=== PATIENT | female | born 1965 | race Caucasian/White ===

== ENCOUNTER 2016-07-19 10:17 | Outpatient (CLI) | payer BC ==
[~2016-07-19] VITALS: Ht 147.3 cm; Wt 61.4 kg
--- NOTE | ~2016-07-19 | HEMODYNAMI ---
PATIENT:LEONA SINGER MEDICAL RECORD: [id number] : 69 LOCATION:[facility] ADMISSION DATE: 07/19/16 Generatedon:07/19/201614:03 Patient name: LEONA SINGER Patient #: [id number] SSN: : 1965 Date of study: 07/19/2016 Page: Of Hemodynamic Procedure Report Patient Data Patient Demographics Procedure consent was obtained First Name: LEONA Gender: Female Last Name: LUCRECIA : 1965 [facility] Initial: MOIZ Age: 50 year(s) Patient #: [id number] Race: Unknown Additional ID: [id number] Contact details Address: [address] [place] [address] State: [place] City: [place] Zip code: [address] Past Medical History Allergies: No known allergies Admission Admission Data Admission Date: 07/19/2016 Admission Time: 10:17 Admit Source: Other Lab Results Lab Result Date: 07/19/2016 Lab Result Time: 0:00 Biochemistry Name Units Result Min Max BUN mg/dl 8 --(*---)-- 7 18 Creatinine mg/dl 0.7 --(*---)-- 0.6 1.3 CBC Name Units Result Min Max Hemoglobin g/dl 14.2 --(*---)-- 13.5 17.5 Procedure Procedure Types Cath Procedure Diagnostic Procedure [facility] w/Coronaries PCI Procedure Coronary Stent Initial Coronary Stent Additional Procedure Description Procedure Date Procedure Date: 07/19/2016 Procedure Start Time: 13:11 Procedure End Time: 14:01 Procedure Staff Name Function Eldon Bennett MD Performing Physician Alvaro Dawson RT Scrub Camron Calderon RN Nurse Pancho Cha RT Monitor Procedure Data Cath Procedure Fluoroscopy Diagnostic fluoroscopy Total fluoroscopy dose: dose: 485.35 mGy 485.35 mGy Contrast Material Contrast Material Type Amount (ml) Isovue 300 178 Entry Location Entry Primary Successful Side Size Upsize Upsize Entry Closure Sin ccessful Closure Location (Fr) 1 (Fr) 2 (Fr) Remarks Device Remarks Radial Right 6 Fr Mechanical artery Short Compression Estimated blood loss: 20 ml Diagnostic catheters Device Type Used For End Catheter Placement Terumo 5Fr [place] 110cm Procedure catheter Procedure Medications Medication Administration Route Dosage Oxygen NC 2 l/min Heparin Flush Bag added to field 2 bags (1000units/500ml NS) 0.9% NaCl I.V. 100 ml/hr Radial Cocktail added to field 1 syringe (Verapomil 2mg/Nitro 400mcg/Heparin 1500units) Fentanyl I.V. 50 mcg Versed I.V. 1 mg Fentanyl I.V. 50 mcg Versed I.V. 1 mg Fentanyl I.V. 50 mcg Heparin Bolus I.V. 4000 units Integrilin (Bolus I.V. 5.6 ml 2mg/ml) Integrilin (Bolus wasted 4.4 ml 2mg/ml) Fentanyl I.V. 50 mcg Radial Cocktail I.A. 1 syringe (Verapomil 2mg/Nitro 400mcg/Heparin 1500units) Versed I.V. 1 mg Versed I.V. 1 mg Brilinta P.O. 180 mg Hemodynamics Rest HGB: 14.2 (g/dl) Heart Rate: 63 (bpm) Pressure Samples Time Site Value (mmHg) Purpose Heart Use Rate(bpm) 13:14 LV 129/-20,8 Snapshot 67 13:15 AO 123/67(93) Pullback 72 13:15 LV 118/-8,7 Pullback 72 Gradients Valve Time Site 1 Site 2 Mean SEP/DFP Peak To Heart Use (mmHg) (sec/min) Peak Rate (mmHg) (bpm) Aortic 13:15 LV AO 0 5 0 72 118/-8,7 123/67(93) Calculations Valve P-P Mean Valve Index Valve Source Name Gradient Area Flow (cm2) Aortic 0 0 0 0 Snapshots Pre Cath Intra NCS Post Cath Vital Signs Time Heart Resp SPO2 NIBP (mmHg) Rhythm Pain Sedation Rate (ipm) (%) Status Level (bpm) 12:54:39 66 16 100 161/77(120) NSR 0 (11) 10(A) , No pain 12:59:08 64 18 99 158/75(102) NSR 0 (11) 10(A) , No pain 13:03:32 70 17 98 151/69(100) NSR 0 (11) 10(A) , No pain 13:07:58 64 17 96 146/63(105) NSR 0 (11) 10(A) , No pain 13:12:21 64 17 96 146/64(105) NSR 0 (11) 10(A) , No pain 13:16:41 66 19 95 140/57(89) NSR 0 (11) 9(A) , No pain 13:21:09 55 18 97 153/52(82) NSR 0 (11) 9(A) , No pain 13:25:23 57 16 96 133/61(113) NSR 0 (11) 9(A) , No pain 13:29:43 61 18 97 137/66(94) NSR 0 (11) 9(A) , No pain 13:34:03 62 18 97 136/55(112) NSR 0 (11) 9(A) , No pain 13:38:21 59 16 96 132/58(118) NSR 0 (11) 9(A) , No pain 13:42:46 60 17 95 141/58(83) NSR 0 (11) 9(A) , No pain 13:47:08 54 18 96 155/70(102) NSR 0 (11) 9(A) , No pain 13:53:20 59 19 98 180/81(105) NSR 0 (11) 10(A) , No pain 13:57:49 63 19 97 168/82(108) NSR 0 (11) 10(A) , No pain Medications Time Medication Route Dose Verified Delivered Reason Note s Effectiveness by by 12:58:50 Oxygen NC 2 l/min Camron Lyon Per physician Kvng Calderon RN RN 12:58:59 Heparin Flush added 2 bags Camron Lyon used for Bag to Kvng Calderon home office claim specialist (1000units/500ml field RN NS) 12:59:10 0.9% NaCl I.V. 100 Camron Lyon Per physician ml/hr Kvng Calderon RN RN 12:59:20 Radial Cocktail added 1 Camron Lyon used for (Verapomil to syringe Kvng Calderon home office claim specialist 2mg/Nitro field RN 400mcg/Heparin 1500units) 13:06:44 Fentanyl I.V. 50 mcg Camron Lyon for sedation Kvng Calderon RN RN 13:06:51 Versed I.V. 1 mg Camron Camron for sedation Kvng Calderon RN RN 13:10:25 Fentanyl I.V. 50 mcg Camron Camron for sedation Kvng Calderon RN RN 13:10:30 Versed I.V. 1 mg Camron Camron for sedation Kvng Calderon RN RN 13:12:41 Fentanyl I.V. 50 mcg Camron Camron for sedation Kvng Calderon RN RN 13:13:27 Radial Cocktail I.A. 1 Camron Eldon for (Verapomil syringe [facility] vasodilation 2mg/Nitro RN 400mcg/Heparin 1500units) 13:24:37 Heparin Bolus I.V. 4000 Camron Camron for units Kvng Calderon RN anticoagulation RN 13:24:51 Integrilin I.V. 5.6 ml Camron Camron for (Bolus 2mg/ml) Kvng Calderon RN antiplatelet RN therapy 13:25:01 Integrilin wasted 4.4 ml Camron Grimesy for (Bolus 2mg/ml) Kvng Calderon RN antiplatelet RN therapy 13:25:15 Fentanyl I.V. 50 mcg Camron Camron for sedation Kvng Calderon RN RN 13:28:05 Versed I.V. 1 mg Camron Camron for sedation Kvng Calderon RN RN 13:49:05 Versed I.V. 1 mg Camron Camron for sedation Kvng Calderon RN RN 14:02:16 Brilinta P.O. 180 mg Camron Camron for Kvng Calderon RN antiplatelet RN therapy Procedure Log Time Note 12:30:17 Camron Calderon RN sent for patient. Start room use. 12:44:57 Informed consent obtained and on chart 12:45:01 Admit Source: Other 12:45:15 Diagnostic Cath status Elective 12:45:25 Time tracking: Regular hours 12:45:28 Plan of Care:Hemodynamics will remain stable., Cardiac rhythm will remain stable., Comfort level will be maintained., Respiratory function will remain adequate., Patient/ family verbilizes understanding of procedure., Procedure tolerated without complication., Recovers from procedure without complications.. 12:47:49 Patient received from Pre/Post Procedure Room to [facility]3] 3 Alert and oriented. Tansferred to table in Supine position. 12:47:52 Warm blankets applied, and ad hugger turned on for patient comfort. 12:47:53 Correct patient and procedure confirmed by team. 12:53:22 ECG and BP/O2 sat monitors applied to patient. 12:53:22 Vital chart was started 12:53:23 Baseline sample Acquired. 12:53:30 Rhythm: sinus rhythm 12:53:32 Full Disclosure recording started 12:58:50 Oxygen 2 l/min NC was administered by Camron Calderon RN; Per physician; 12:58:59 Heparin Flush Bag (1000units/500ml NS) 2 bags added to field was administered by Camron Calderon RN; used for procedure; 12:59:10 0.9% NaCl 100 ml/hr I.V. was administered by Camron Calderon RN; Per physician; 12:59:20 Radial Cocktail (Verapomil 2mg/Nitro 400mcg/Heparin 1500units) 1 syringe added to field was administered by Camron Calderon RN; used for procedure; 13:00:23 Baseline sample Acquired. 13:01:01 H&P Date Dictated: 07/14/2016 Within 30 days and on chart., H&P Addendum completed by physician on day of procedure. (MUST COMPLETE FOR ALL OUTPATIENTS). 13:01:03 Pre-procedure instructions explained to patient. 13:01:04 Pre-op teaching completed and patient verbalized understanding. 13:01:06 Family in waiting room. 13:01:09 Patient NPO since Midnight. 13:01:15 Patient allergic to No known allergies 13:01:18 Is the patient allergic to Iodine/contrast media? No. 13:01:22 Is patient on blood thinner?No 13:01:26 Patient diabetic? No. 13:01:35 Patient not . Patient has had hysterectomy. 13:01:37 ----Pre-sedation anethsthesia assessment.---- 13:01:41 Previous problem with sedation/anesthesia? No ? 13:01:44 Snore? Yes 13:01:46 Sleep apnea? No 13:01:47 Deviated septum? No 13:01:49 Opens mouth fully? Yes 13:01:50 Sticks out tongue? Yes 13:01:53 Airway obstruction? No ? 13:02:01 Dentures? Yes in tight 13:02:08 Pre procedure: right dorsailis pedis pulse 2+ Normal; easily identifiable; not easily obliterated 13:02:12 Modified Daryl's test Ulnar < 7 seconds 13:02:17 Patient pain scale 0/10 ?. 13:02:50 IV patent on arrival in left antecubital with 0.9% NaCl at [facility]. 13:05:58 Lab Result : BUN 8 mg/dl 13:05:58 Lab Result : Hemoglobin 14.2 g/dl 13:05:58 Lab Result : Creatinine 0.7 mg/dl 13:06:07 Lab results completed and on chart. 13:06:13 Right Radial & Right Groin area was prepped with chlora-prep and draped in sterile fashion 13:06:15 Alarms reviewed by R. N. 13:06:16 Sharps counted by scrub and verified by R.N. 13:06:17 Physician arrived 13:06:18 --------ALL STOP TIME OUT------ 13:06:19 Final Timeout: patient, procedure, and site verified with staff and physician. All members of the team are in agreement. 13:06:21 Right Radial & Right Groin site verified by team. 13:06:25 Physical assessment completed. ASA score P 2 - A patient with mild systemic disease as per Eldon Bennett MD. 13:06:29 Sedation plan: IV Moderate Sedation Versed, Fentanyl 13:06:44 Fentanyl 50 mcg I.V. was administered by Camron Calderon RN; for sedation; 13:06:48 Use device set Radial Dx 13:06:50 Acist Syringe opened to sterile field. 13:06:51 Versed 1 mg I.V. was administered by Camron Calderon RN; for sedation; 13:06:51 Medline Cath Pack opened to sterile field. 13:06:52 Bag Decanter opened to sterile field. 13:06:52 Terumo 6Fr Slender Glidesheath opened to sterile field. 13:06:53 St Danny 260cm J .035 wire opened to sterile field. 13:06:54 Acist Hand Control opened to sterile field. 13:06:54 Acist Manifold opened to sterile field. 13:06:55 Tegaderm 4 x 4 opened to sterile field. 13:10:25 Fentanyl 50 mcg I.V. was administered by Camron Calderon RN; for sedation; 13:10:30 Versed 1 mg I.V. was administered by Camron Calderon RN; for sedation; 13:11:27 Procedure started. 13:11:53 Local anesthetic to right radial artery with Lidocaine 2% by Eldon Bennett MD.INITIAL ACCESS ONLY 13:11:56 Zero performed for pressure channel P1 13:12:41 Fentanyl 50 mcg I.V. was administered by Camron Calderon RN; for sedation; 13:12:42 A 6 Fr Short sheath was inserted into the Right Radial artery 13:13:10 A Sayduck 5Fr [place] 110cm catheter was advanced over the wire and used for Procedure. 13:13:27 Radial Cocktail (Verapomil 2mg/Nitro 400mcg/Heparin 1500units) 1 syringe I.A. was administered by Eldon Bennett MD; for vasodilation; 13:14:57 LV hemodynamics recorded. 13:15:11 LV gram done using FERNANDES 13:15:16 LV Function : Normal 13:15:21 EF : 55 % 13:16:04 RCA angiography performed. 13:16:52 LCA angiography performed. 13:20:50 Catheter removed. 13:21:00 Proceeding to intervention. 13:21:42 Aravo Solutionstronic Launcher 6Fr HS I SH guide catheter opened to sterile field. 13:21:43 Lindquist Whisper J 300cm 0.014 guide wire opened to sterile field. 13:21:44 Loaded Commerce BasixCompak Inflation Kit opened to sterile field. 13:21:57 Procedure type changed to Cath procedure, Diagnostic procedure, LHC, LHC w/Coronaries, PCI procedure, Coronary Stent Initial, Coronary Stent Additional 13:23:04 6 Fr HS 1 SH guide catheter was inserted over the wire 13:24:37 Heparin Bolus 4000 units I.V. was administered by Camron Calderon RN; for anticoagulation; 13:24:51 Integrilin (Bolus 2mg/ml) 5.6 ml I.V. was administered by Camron Calderon RN; for antiplatelet therapy; 13:25:01 Integrilin (Bolus 2mg/ml) 4.4 ml wasted was administered by Camron Calderon RN; for antiplatelet therapy; 13:25:15 Fentanyl 50 mcg I.V. was administered by Camron Calderon RN; for sedation; 13:25:16 ACC PCI Site: pRCA has 70% stenosis. 13:25:24 ACC PCI Site: mRCA has 70% stenosis. 13:25:40 ACC PCI Site: dRCA has 70+% stenosis. 13:26:28 WHISPER wire advanced. 13:26:52 Wire advanced across lesion. 13:27:57 Inflation number: 1 A Fisher Sci [place] 3.0 X 15 balloon was prepped and advanced across the R PDA, then inflated to 8 [place] for 0:30 (min:sec). 13:28:05 Versed 1 mg I.V. was administered by Camron Caledron RN; for sedation; 13:29:00 Inflation number: 1 The Fisher Sci [place] 3.0 X 15 balloon was reinflated across the Mid RCA, to 8 [place] for 0:30 (min:sec). 13:29:58 Inflation number: 1 The Fisher Sci [place] 3.0 X 15 balloon was reinflated across the Prox RCA, to 10 [place] for 0:30 (min:sec). 13:30:50 Inflation number: 2 The Fisher Sci [place] 3.0 X 15 balloon was reinflated across the Prox RCA, to 12 [place] for 0:30 (min:sec). 13:31:29 Balloon removed over the wire. 13:35:25 The Medtronic Resolute 3.0 X 38 stent was advanced then removed because of failure to cross lesion 13:35:49 Balloon re-inserted over wire. 13:36:58 Wire removed. 13:37:14 Fisher Sci Choice PT Extra Support J 300cm .014 gu opened to sterile field. 13:37:37 CHOICE SUPPORT wire advanced. 13:38:44 Inflation number: 1 The Fisher Sci [place] 3.0 X 15 balloon was reinflated across the Dist RCA, to 12 [place] for 0:30 (min:sec). 13:39:08 Inflation number: 2 The Fisher Sci [place] 3.0 X 15 balloon was reinflated across the Mid RCA, to 12 [place] for 0:30 (min:sec). 13:39:40 Inflation number: 3 The Fisher Sci [place] 3.0 X 15 balloon was reinflated across the Mid RCA, to 12 [place] for 0:30 (min:sec). 13:39:54 Balloon removed over the wire. 13:43:56 Inflation Number: 2 A Medtronic Resolute 3.0 X 38 stent was prepped and advanced across the R PDA. The stent was deployed at 12 [place] for 0:30 (min:sec). 13:44:54 Stent catheter was removed intact over wire. 13:48:02 Inflation Number: 4 A Medtronic Resolute 3.0 X 38 stent was prepped and advanced across the Mid RCA. The stent was deployed at 14 [place] for 0:30 (min:sec). 13:48:14 Stent catheter was removed intact over wire. 13:49:05 Versed 1 mg I.V. was administered by Camron Calderon RN; for sedation; 13:53:01 Inflation Number: 3 A Medtronic Resolute 3.0 X 15 stent was prepped and advanced across the Prox RCA. The stent was deployed at 14 [place] for 0:30 (min:sec). 13:53:03 Stent catheter was removed intact over wire. 13:53:35 Wire removed. 13:54:09 Guide catheter removed. 13:54:18 Terumo TR Band Standard opened to sterile field. 13:58:38 Sheath removed intact; hemostasis achieved with Mechanical Compression to the Right Radial artery. 13:58:40 Procedure ended.(Physican Out) 13:58:49 TR band inflated with 12cc of air. 13:59:28 Fluoroscopy dose: 485.35 mGy 13:59:28 Flurop Dose total: 485.35 13:59:37 Contrast amount:Isovue 300 178ml. 13:59:38 Sharps counted by scrub and verified by R.N. 13:59:43 Insertion/operative site no bleeding no hematoma. 14:00:25 Post right radial artery:stable 14:00:30 Post Procedure Pulses reassessed and unchanged 14:00:36 Post-procedure physical assessment completed. ASA score P 2 - A patient with mild systemic disease as per Eldon Bennett MD. 14:00:40 Post procedure rhythm: unchanged. 14:00:43 Estimated blood loss: 20 ml 14:00:45 Post procedure instruction explained to patient.Patient verbalizes understanding. 14:00:46 Patient needs reinforcement of post procedure teaching. 14:00:47 Procedure and supply charges have been captured, reviewed, submitted and are correct. 14:00:54 Vital chart was stopped 14:00:55 See physician's report for complete and final results. 14:00:57 Report given to Pre/Post Procedure Room. 14:01:02 Patient transfered to Pre/Post Procedure Room with Stretcher. 14:01:05 Procedure ended. 14:01:05 Full Disclosure recording stopped 14:01:17 ACC-PCI Only Patient was given prescriptions, or instructed by Eldon Bennett MD to start/continue the following medications upon discharge: Aspirin, Brilinta 14:01:18 End room use (Document Last) 14:02:16 Brilinta 180 mg P.O. was administered by Camron Calderon RN; for antiplatelet therapy; Intervention Summary Intervention Notes Time ActionType Lesion and Equipment Action# Pressure Duration Attributes Used 13:27:57 Inflate R PDA Fisher 1 8 00:30 balloon Sci [place] 3.0 X 15 balloon 13:29:00 Reinflate Mid RCA Fisher 1 8 00:30 balloon Sci [place] 3.0 X 15 balloon 13:29:58 Reinflate Prox RCA Fisher 1 10 00:30 balloon Sci [place] 3.0 X 15 balloon 13:30:50 Reinflate Prox RCA Fisher 2 12 00:30 balloon Sci [place] 3.0 X 15 balloon 13:35:25 Discard Medtronic Stent Resolute 3.0 X 38 stent 13:38:44 Reinflate Dist RCA Fisher 1 12 00:30 balloon Sci [place] 3.0 X 15 balloon 13:39:08 Reinflate Mid RCA Fisher 2 12 00:30 balloon Sci [place] 3.0 X 15 balloon 13:39:40 Reinflate Mid RCA Fisher 3 12 00:30 balloon Sci [place] 3.0 X 15 balloon 13:43:56 Place stent R PDA Medtronic 2 12 00:30 Resolute 3.0 X 38 stent 13:48:02 Place stent Mid RCA Medtronic 4 14 00:30 Resolute 3.0 X 38 stent 13:53:01 Place stent Prox RCA Medtronic 3 14 00:30 Resolute 3.0 X 15 stent Device Usage Item Name Manufacture Quantity Catalog Number Hospital Part Current Mini mal Lot# / Charge Number Stock Stock Serial# Code Acist Acist 1 08584 [id number] 171161 422879 20 blueKiwi Inc Medline Cardinal 1 [id number] 853077 87945 393965 5 Cath Pack Health Bag Microtek 1 452808 12035 816488 5 Reapplix Inc. Terumo 6Fr Terumo 1 [id number] 999791 379086 820305 [address] Danny 1 008789 709422 148002 152815 30 260cm J .035 wire Acist Hand Acist 1 26530 460820 448988 902437 5 Control Medical Systems Inc Acist Acist 1 02341 972269 776398 200893 5 [facility] Medical Systems Inc Tegaderm 4 3M 1 1626W 058735 456855 295050 5 x 4 Terumo 5Fr Terumo 1 29-1559 430910 768429 021736 5 [place] 110cm catheter Medtronic Medtronic 1 [id number] 624935 80996 298721 1 Launcher 6Fr HS I SH guide catheter Lindquist Lindquist 1 [id number] 174731 171493 608652 5 Whisper J Vascular 300cm 0.014 guide wire Merit Merit 1 [id number] 541520 089681 356663 15 BasixCompak Medical Inflation Kit Fisher Sci Fisher 1 [id number] 984965 134436 837501 1 [employer] 3.0 X 15 balloon Medtronic Medtronic 2 [id number] 393254 418071 0 [id number] Resolute [id number] 3.0 X 38 stent Fisher Sci Fisher 1 [id number] 242207 974295 509884 5 Choice PT Scientific Extra Support J 300cm .014 gu Medtronic Medtronic 1 [id number] 384575 061536 9 [id number] Resolute 3.0 X 15 stent Terumo TR Terumo 1 [id number] 021431 864507 605045 40 Band Standard Signature Audit [place] Stage Time Signature Unsigned Intra-Procedure 07/19/2016 Pancho Cha 2:03:03 PM RT(R) (CV) Signatures Monitor : Pancho Cha RT Signature : Date : Time : [facility] [address] [place] [address]
[2016-07-19] MEDS ORDERED: ADDERALL 20 MG20 M1 PO (10:32)
[2016-07-19 10:39] VITALS: BP 146/70; Ht 147.3 cm; Wt 61.4 kg
[2016-07-19 10:55] LABS: BASOPHILS 0.1 % (0-2); EOSINOPHILS 3.2 % (0-7); HEMATOCRIT 42.7 % (36.0-48.0); HEMOGLOBIN 14.2 g/dL (12-16); LYMPHOCYTES 27.4 % (15-50); MCH 31.2 pg (26.0-34.0); MCHC 33.3 g/dL (31.0-37.0); MCV 93.8 fL (80.0-100.0); MEAN PLATELET VOLUME 9.4 fL (7.4-10.4); MONOCYTES 6.5 % (2-11); NEUTROPHILS 62.8 % (40-80); PLATELET COUNT 226 10x3/uL (130-400); RBC 4.55 10x6/uL (4.00-5.40); RDW 13.3 % (11.5-14.5); WBC 7.1 10x3/uL (4.8-10.8)
[2016-07-19 11:21] LABS: CALC OSMOLALITY 275 mosm/kg (275-300); CALCIUM 8.9 mg/dL (8.5-10.1); CARBON DIOXIDE 27.3 mmol/L (21.0-32.0); CHLORIDE - SERUM 104 mmol/L (98-107); CREATININE - SERUM 0.7 mg/dL (0.6-1.3); GLUCOSE 93 mg/dL (74-106); POTASSIUM - SERUM 4.1 mmol/L (3.5-5.1); SODIUM 139 mmol/L (136-145); UREA NITROGEN 8 mg/dL (7-18); eGFR NON AFRICAN AMERICAN > 90 mL/min (90-120)
[2016-07-19] MEDS ORDERED: BRILINTA90 MG PO (14:19)
--- NOTE | 2016-07-19 14:30 | NUR ---
ROOM AIR, NO RESP DISTRESS NOTED. RIGHT WRIST TR BAND IN PLACE, NO BLEEDING OR HEMATOMA NOTED. ADMISSIONS CLINICIAN SHOWS NSR @ 60. NO C/O CHEST PAIN OR NAUSEA. C/O RIGHT JAW AND NECK PAIN. REC'D ORDER FROM DR. ARIAS FOR PAIN MEDICATION. VSS.
--- NOTE | 2016-07-19 15:00 | NUR ---
SANDWICH TRAY GIVEN, NO C/O NAUSEA AT THIS TIME. RIGHT WRIST TR BAND IN PLACE, NO BLEEDING OR HEMATOMA NOTED. VSS. ROOM AIR, NO RESP DISTRESS. CALL LIGHT WITHIN REACH.
--- NOTE | 2016-07-19 15:15 | NUR ---
SITTING UP IN BED. VSS. NO C/O NAUSEA OR CHEST PAIN. RIGHT WRIST TR BAND IN PLACE, NO BLEEDING OR HEMATOMA NOTED.
--- NOTE | 2016-07-19 15:45 | NUR ---
RIGHT WRIST TR BAND IN PLACE, NO BLEEDING NOTED. VSS. NO C/O AT THS TIME. ROOM AIR, NO RESP DISTRESS. CALL LIGHT WITHIN REACH.
--- NOTE | 2016-07-19 16:05 | NUR ---
PT C/O NAUSEA, PRESSURE IN CHEST AND BEING HOT. ZOFRAN GIVEN SIVP PER ORDERS.
--- NOTE | 2016-07-19 16:20 | NUR ---
NO C/O NAUSEA, BUT STILL CLAMMY AND PALE. EKG PERFORMED AND RESULTS GIVEN TO DR. ACOSTA.
--- NOTE | 2016-07-19 16:35 | NUR ---
NO NEW ORDERS REC'D. STATES SHE FEELS MUCH BETTER NOW. WILL CONTINUE TO MONITOR CLOSELY.
--- NOTE | 2016-07-19 17:00 | NUR ---
2CC OF AIR REMOVED FROM TR BAND. NO BLEEDING NOTED.
--- NOTE | 2016-07-19 17:08 | NUR ---
UP TO RESTROOM TO VOID.
--- NOTE | 2016-07-19 17:15 | NUR ---
3CC OF AIR REMOVED FROM TR BAND. NO BLEEDING NOTED.
--- NOTE | 2016-07-19 17:29 | NUR ---
3CC OF AIR REMOVED FROM TR BAND, NO BLEEDING NOTED.
--- NOTE | 2016-07-19 17:40 | NUR ---
REMAINING AIR REMOVED FROM TR BAND, DRESSING TO SITE. LEFT AC PIV D/C'D WITH CATHETER INTACT, BAND AID TO SITE. UP TO BEDSIDE TO GET DRESSED.
--- NOTE | 2016-07-19 17:52 | NUR ---
DISCHARGE INSTRUCTIONS GIVEN, VERBALIZED UNDERSTANDING. TAKEN OUT VIA WHEELCHAIR BY CATH OVEREDGE SEWER. LEFT FACILITY WITH FAMILY MEMBER AND ALL PERSONAL BELONGINGS.
--- NOTE | 2016-07-20 08:21 | OP ---
PATIENT NAME: LEONA SINGER MEDICAL RECORD: [id number] :69 LOCATION:D.CAT ADMISSION DATE: SURGEON: BRITTANY RENDON MD DATE OF OPERATION: 07/19/2016 PROCEDURE: Left heart catheterization, selective coronary angiography, right radial approach. CATHETERS: A 5-Indian sheath, Josephine catheter. The procedure was well tolerated and we proceeded immediately to PTCA stenting of the right coronary artery after the procedure was finished. FINDINGS: Left ventriculography in the 30-degree FERNANDES view: Normal wall motion, normal systolic function. CORONARY ANATOMY: LEFT MAIN: Left main is basically ____ takeoff with minimal left main. LAD: LAD has severe diffuse disease down to its distal third. CIRCUMFLEX: Circumflex is a large vessel with a proximal stenosis of ____. RIGHT CORONARY ARTERY: The right coronary is again severely diffusely diseased, a codominant system. Poor target distally. IMPRESSION: Multivessel coronary artery disease, given anatomy, quite optimal for bypass grafting. PLAN: For intervention momentarily. A hockey stick guide catheter was placed in the right coronary ostium. Next, the Whisper wire was placed down to the right coronary down to the PDA. Predeployment balloon used was a 3.0 x 15 mm Geary, which inflated down to the PDA and then in a stepwise fashion, I inflated up to 8-12 atmospheres from the PDA throughout the entire course of the right coronary. Next, stents were placed in the following fashion, a 3.0 x 38 mm Resolute drug-eluting stent was inflated in the right coronary, inflated to 14 atmospheres. Mid portion was covered with another 3.0 x 38 mm Resolute drug-coated stent. Finally, we placed a 3.0 x 15 mm, again Resolute drug-eluting stent, inflated up at 45 seconds to 14 atmospheres. Excellent resolution of a severe diffuse greater than 90% stenosis, no significant residual. LINDSAY flow was 3 throughout the procedure. Sheath was closed with TR band. Plavix was loaded in the lab. TRANSINT:[id number] Voice Confirmation ID: [id number] DOCUMENT ID: [id number] BRITTANY RENDON MD at 0821 CC: [id number] DICTATION DATE: 07/19/16 1408 WINDOWS [employer] ADMINISTRATOR: 07/19/16 2222 DEP CLI 07/19/16 [facility] [address] [place] [address]
== END 2016-07-19 17:52 | disposition home or self-care (01) ==
LOC: D.CATH 10:17
PROVIDERS: Internal Medicine Interventional Cardiology
DX: I25.110 Atherosclerotic heart disease of native coronary artery with unstable angina pectoris (principal)

== ENCOUNTER 2016-07-19 21:49 | Inpatient (IN) | payer BC ==
[~2016-07-19] VITALS: Ht 147.3 cm; Wt 61.9 kg
--- NOTE | ~2016-07-19 | DS ---
PATIENT:LEONA SINGER :69 MEDICAL RECORD: [id number] DISCHARGE SUMMARY ADMISSION DATE: 07/20/16 DISCHARGE DATE: 07/20/16 IMPRESSION: 1. Syncope. 2. Coronary artery disease status post intervention. BRIEF HISTORY AND HOSPITAL COURSE: Admitted post intervention of syncopal episode, fairly classic vagal using the restroom, no recurrence. Does have small hematoma. Did have elevated enzymes with previous intervention. Will be continued for regular followup. TRANSINT:[id number] Voice Confirmation ID: [id number] DOCUMENT ID: [id number] BRITTANY RENDON MD CC: [id number] DICTATION DATE: 07/20/16824 SPIRAL TUBE WINDER: 07/21/16 0200 DIS IN 07/20/16 [facility] [address] [place] [address]
[~2016-07-19 21:49] MED LIST: ADDERALL 20 MG20 M1 PO; BRILINTA90 MG PO
[2016-07-19 22:25] LABS: BASOPHILS 0.2 % (0-2); EOSINOPHILS 1.8 % (0-7); HEMATOCRIT 39.8 % (36.0-48.0); HEMOGLOBIN 13.1 g/dL (12-16); IMMATURE GRANULOCYTES 0.4 % (0-5); LYMPHOCYTES 14.2 % (15-50); MCHC 32.9 g/dL (31.0-37.0); MCV 94.1 fL (80.0-100.0); MEAN PLATELET VOLUME 9.5 fL (7.4-10.4); MONOCYTES 5.7 % (2-11); NEUTROPHILS 77.7 % (40-80); PLATELET COUNT 210 10x3/uL (130-400); RBC 4.23 10x6/uL (4.00-5.40); RDW 13.3 % (11.5-14.5)
[2016-07-19 22:31] LABS: WBC 13.8 10x3/uL (4.8-10.8)
[2016-07-19 22:34] LABS: INR 0.97 (0.85-1.17); PROTIME 12.7 SECONDS (11.6-15.0)
[2016-07-19 22:40] LABS: ANION GAP 11.4 mmol/L (8-16); BILIRUBIN - TOTAL 0.16 mg/dL (0.2-1.3); CALCIUM 8.7 mg/dL (8.5-10.1); CARBON DIOXIDE 24.8 mmol/L (21.0-32.0); POTASSIUM - SERUM 4.2 mmol/L (3.5-5.1); PROTEIN - SERUM 6.1 g/dL (6.4-8.2)
[2016-07-19 22:43] LABS: CREATININE - SERUM 0.9 mg/dL (0.6-1.3)
[2016-07-19 23:27] LABS: TROPONIN-I 1.159 ng/mL (0.000-0.060)
--- NOTE | 2016-07-20 01:32 | NUR ---
REPORT RECEIVED FROM FRANCISCO THOMPSON.
--- NOTE | 2016-07-20 01:38 | NUR ---
ARRIVED TO FLOOR VIA WHEELCHAIR, ACCOMPANIED BY HOSPITAL STAFF. PLACED ON TELEMETRY AND ORIENTED TO UNIT. CALL LIGHT IN REACH. WILL CONTINUE TO MONITOR. SEE NURSE ASSESSMENT.
[2016-07-20 02:44] VITALS: BP 103/56; Ht 147.3 cm; Wt 61.9 kg
[2016-07-20 04:00] VITALS: BP 103/56
[2016-07-20 06:33] LABS: CKMB 27.8 U/L (0.0-3.6); CREATINE KINASE 184 UL (21-215)
[2016-07-20 06:34] LABS: TROPONIN-I 3.063 ng/mL (0.000-0.060)
[2016-07-20 08:45] VITALS: BP 102/63
--- NOTE | 2016-07-20 09:45 | NUR ---
RESTS IN BED WITH CALL LIGHT IN REACH. TELEMETRY SB. CALL LIGHT IN REACH. WILL CONT. PLAN OF CARE.
--- NOTE | 2016-07-20 10:43 | NUR ---
Patient Name: LEONA SINGER Admission Status: ER Accout number: [id number] Admission Date: 07-20-2016 : 1965 Admission Diagnosis: Attending: REYNA Current LOS: 1 Anticipated DC Date: 07-20-2016 Planned Disposition: Home Primary Insurance: [employer] [facility] Discharge Planning Comments: * Is the patient Alert and Oriented? Yes 0 * How many steps to enter\exit or inside your home? NONE 0 * PCP DR. CONTE 0 * Pharmacy [facility] 0 * Preadmission Environment Home with Family 0 * ADLs Independent 0 * Equipment None 0 * Other Equipment NO MEDICAL EQUIPMENT PROVIDER PREFERENCE 0 * List name and contact numbers for known caregivers / representatives who currently or will assist patient after discharge: CELSO SINGER, DAUGHTER, 0 * Community resources currently utilized None 0 * Please name any agencies selected above. NONE 0 * Additional services required to return to the preadmission environment? No 0 * Can the patient safely return to the preadmission environment? Yes 0 * Has this patient been hospitalized within the prior 30 days at any hospital? No 0 CM MET WITH PT IN ROOM TO DISCUSS DISCHARGE PLANNING AND NEEDS. PT REPORTS LIVING AT HOME INDEPENDENTLY WITH HER ADULT DAUGHTER AND SON IN LAW. PT HAS NO MEDICAL EQUIPMENT AND NO OUTSIDE SERVICES ASSISTING IN THE HOME. CM DISCUSSED AVAILABILITY OF HOME HEALTH, REHAB SERVICES AND MEDICAL EQUIPMENT. PT DENIES DISCHARGE NEEDS, REPORTS HER DAUGHTER WILL PICK HER UP FOR DISCHARGE HOME. Flipping Machine Operator: Vikas Brown
[2016-07-20 11:11] LABS: CKMB 30.9 U/L (0.0-3.6); CREATINE KINASE 210 UL (21-215)
[2016-07-20 11:15] LABS: TROPONIN-I 3.484 ng/mL (0.000-0.060)
[2016-07-20 11:57] VITALS: BP 100/49
--- NOTE | 2016-07-20 13:45 | NUR ---
IV AND TELEMETRY DCD. DC PLANS GIVEN. UNDERSTANDING VOICED. ESCORTED TO CAR BY W/C.
== END 2016-07-20 13:48 | disposition home or self-care (01) | DRG 312 ==
LOC: D.ER 21:49 → D.M2 07-20 01:17
PROVIDERS: Emergency Medicine; ADMIT Internal Medicine Interventional Cardiology
DX: R55 Syncope and collapse (principal); I25.10 Atherosclerotic heart disease of native coronary artery without angina pectoris; Z95.5 Presence of coronary angioplasty implant and graft

== ENCOUNTER 2016-07-24 11:45 | Outpatient (CLI) | payer BC ==
[~2016-07-24] VITALS: Ht 147.3 cm; Wt 61.4 kg
--- NOTE | ~2016-07-24 | OP ---
PATIENT NAME: LEONA SINGER MEDICAL RECORD: [id number] :[birth year] LOCATION:D.CAT ADMISSION DATE: SURGEON: BRITTANY RENDON MD DATE OF OPERATION: 07/24/2016 PTCA stent report to both LAD and circumflex. A 6-Setswana sheath placed in the right femoral artery, JL 3.5 guiding catheters supplied good guide support. Initially views of circumflex showed a possible ruptured plaque in the true circumflex after take off of the first OM. There was still residual 80% stenosis noted from previous lesion. Using a Whisper wire placed across both lesions in the circumflex, pre-deployment balloon used was a 2.5 x 15 mm Juncos inflated up to 18 atmospheres, pre-deployment stents were used for a 15 mm x 2.5 Resolute drug-eluting stent in the distal lesion and a proximal stenosis addressed with a 3.0 x 12 mm Resolute again drug-eluting stent. Next, attention was turned to the LAD, this was promptly stented. The mid vessel was crossed with a Whisper wire and stent deployed was a 2.5 x 14 mm Resolute nondrug-eluting stent, the proximal lesion of 90% was addressed with a 3.0 x 14 mm again Resolute drug-eluting stent. Final induction shows resolutation of circumflex 80% stenosis to no significant residual. LAD mid and proximal stenosis, 80% stenosis, no significant residual. LINDSAY flow was at the end of the procedure, the patient was previously on Plavix, heparin was used during the case. Sheath was closed with ExoSeal device. TRANSINT:[id number] Voice Confirmation ID: [id number] DOCUMENT ID: [id number] BRITTANY RENDON MD CC: [id number] DICTATION DATE: 07/24/16 1510 [place] TRANSPORTATION DRIVER: 07/25/16 0056 DEP CLI 07/24/[address] [facility] [address] [id number]
--- NOTE | ~2016-07-24 | HEMODYNAMI ---
PATIENT:LEONA SINGER MEDICAL RECORD: [id number] : [birth year] LOCATION:ARNEL ADMISSION DATE: 07/24/16 Generatedon:07/24/201615:09 Patient name: LEOAN SINGER Patient #: [id number] : 1965 Date of study: 07/24/2016 Page: Of Hemodynamic Procedure Report Patient Data Patient Demographics Procedure consent was obtained First Name: LEONA Gender: Female Last Name: SINGER : 1965 Middle Initial: MOIZ Age: 50 year(s) Patient #: [id number] Race: SSN: [id number] Additional ID: [id number] Contact details Address: [address] [place] [address] State: [place] City: [place] Zip code: [address] Past Medical History Allergies: No known allergies Admission Admission Data Admission Date: 07/24/2016 Admission Time: 11:45 Arrival Date: 07/24/2016 Arrival Time: 14:00 Admit Source: Other Insurance Payor: Private health insurance Height (in.): 58 BSA: 1.54 (m2) Height (cm.): 147.32 BMI: 28.21 (kg/m2) Weight (lbs.): 135 Weight (kg.): 61.23 Lab Results Lab Result Date: 07/19/2016 Lab Result Time: 0:00 Biochemistry Name Units Result Min Max BUN mg/dl 8 --(*---)-- 7 18 Creatinine mg/dl 0.7 --(*---)-- 0.6 1.3 CBC Name Units Result Min Max Hemoglobin g/dl 14.2 --(*---)-- 13.5 17.5 Procedure Procedure Types Cath Procedure PCI Procedure Coronary Stent Initial x2 Miscellaneous Procedures Moderate Sedation up to 15 minutes Moderate Sedation up to 45 minutes Procedure Description Procedure Date Procedure Date: 07/24/2016 Procedure Start Time: 14:15 Procedure End Time: 15:07 Procedure Staff Name Function Eldon Bennett MD Performing Physician aPige Billingsley RT Scrub Jose Edwards RN Nurse Ree Stone RT Monitor Procedure Data Cath Procedure Fluoroscopy Diagnostic fluoroscopy Total fluoroscopy Time: time: 14.9 min 14.9 min Diagnostic fluoroscopy Total fluoroscopy dose: dose: 1289 mGy 1289 mGy Contrast Material Contrast Material Type Amount (ml) Isovue 370 184 Entry Location Entry Primary Successful Side Size Upsize Upsize Entry Closure Succes sful Closure Location (Fr) 1 (Fr) 2 (Fr) Remarks Device Remarks Femoral Right 6 Fr Exoseal artery Short Estimated blood loss: 5 ml Diagnostic catheters Device Type Used For End Catheter Placement Diagnostic Infinity 5Fr Right Coronary 3DRC catheter Angiography Procedure Complications No complications Procedure Medications Medication Administration Route Dosage Oxygen NC 2 l/min Lidocaine 2% added to field 20 Heparin Flush Bag added to field 2 bags (1000units/500ml NS) 0.9% NaCl I.V. 100 ml/hr Versed I.V. 1 mg Fentanyl I.V. 50 mcg Versed I.V. 1 mg Fentanyl I.V. 50 mcg Heparin Bolus I.V. 4000 units Versed I.V. 1 mg Fentanyl I.V. 50 mcg Versed I.V. 1 mg Heparin Bolus I.V. 2000 units Nitroglycerin IC/IA I.C. 150 mcg Fentanyl I.V. 25 mcg Hemodynamics Rest BSA: 1.54 (m2) HGB: 14.2 (g/dl) O2 Consumption: Estimated: 146.34 (ml/min) O2 Co nsumption indexed: Estimated:95.03 (ml/min/m) Heart Rate: 61 (bpm) Snapshots Pre Cath Intra NCS Post Cath Vital Signs Time Heart Resp SPO2 NIBP (mmHg) Rhythm Pain Sedation Rate (ipm) (%) Status Level (bpm) 14:06:04 65 17 100 161/71(101) NSR 0 (11) 10(A) , No pain 14:10:28 65 14 99 134/58(94) NSR 0 (11) 10(A) , No pain 14:14:44 63 16 100 132/62(88) NSR 0 (11) 9(A) , No pain 14:19:00 64 14 100 124/56(83) NSR 0 (11) 9(A) , No pain 14:23:12 64 17 99 131/58(84) NSR 0 (11) 9(A) , No pain 14:27:28 66 19 99 141/56(115) NSR 0 (11) 9(A) , No pain 14:31:30 63 14 100 118/62(87) NSR 0 (11) 9(A) , No pain 14:35:42 64 19 100 128/58(90) NSR 0 (11) 9(A) , No pain 14:39:58 61 20 99 131/54(103) NSR 0 (11) 9(A) , No pain 14:44:16 69 14 98 118/52(69) NSR 0 (11) 9(A) , No pain 14:48:25 69 20 98 113/57(106) NSR 0 (11) 9(A) , No pain 14:52:33 65 17 99 119/59(99) NSR 0 (11) 9(A) , No pain 14:56:43 58 24 100 132/59(86) NSR 0 (11) 9(A) , No pain 15:00:53 63 32 100 149/72(94) NSR 0 (11) 9(A) , No pain 15:05:13 61 17 100 163/67(124) NSR 0 (11) 10(A) , No pain Medications Time Medication Route Dose Verified Delivered Reason Notes Effectiveness by by 14:03:13 Oxygen NC 2 Eldon Jiaie used for l/min St. Marshal Edwards RN procedure 14:03:21 Lidocaine 2% added 20ml Eldon Eldon for local to vial [facility] anesthetic field MD PIÑA 14:03:27 Heparin Flush added 2 Eldon Eldon used for Bag to bags [facility] procedure (1000units/500ml field MD PIÑA NS) 14:03:38 0.9% NaCl I.V. 100 Elodn Buffie Per ml/hr [facility]. Marshal Edwards RN physician 14:11:15 Fentanyl I.V. 50 Eldon Buffie for sedation mcg [facility] Marshal Edwards RN, MD 14:11:56 Versed I.V. 1 mg Eldon Jiaie for sedation St. Marshal Edwards RN, MD 14:16:30 Versed I.V. 1 mg Eldon Roie for sedation St. Marshal Edwards RN, MD 14:16:37 Fentanyl I.V. 50 Eldon Garcia for sedation mcg [facility] Marshal Edwards RN, MD 14:20:10 Heparin Bolus I.V. 4000 Eldon Garcia for verified units St. Marshal Edwards RN antiplatelet with dr MD aponte soni 14:27:16 Versed I.V. 1 mg Eldon Garcia for sedation St. Marshal Edwards RN, MD 14:27:21 Fentanyl I.V. 50 Eldon Garcia for sedation mcg St. Marshal Edwards RN, MD 14:33:08 Versed I.V. 1 mg Eldon Garcia for sedation St. Marshal Edwards RN, MD 14:40:05 Heparin Bolus I.V. 2000 Eldon Garcia for verified units St. Marshal Edwards RN antiplatelet with dr MD fay shafer 14:41:05 Fentanyl I.V. 25 Eldon Colón for sedation april Bennett MD, MD 14:43:08 Nitroglycerin I.C. 150 Eldon Colón for IC/IA mcg St. Marshal Gonzales MD, MD Procedure Log Time Note 13:23:10 Informed consent obtained and on chart 13:23:19 Admit Source: Other 13::22 Arrival Date: 07/24/2016 2:00:00 PM 13:23:34 Insurance Payor : Private health insurance 13:40:04 Jose Edwards RN sent for patient. Start room use. 13:52:07 Diagnostic Cath Status : Elective 13:54:11 Time tracking: Regular hours 13:54:15 Plan of Care:Hemodynamics will remain stable., Cardiac rhythm will remain stable., Comfort level will be maintained., Respiratory function will remain adequate., Patient/ family verbilizes understanding of procedure., Procedure tolerated without complication., Recovers from procedure without complications.. 13:54:41 Patient received from Pre/Post Procedure Room to [facility] 2 Alert and oriented. Tansferred to table in Supine position. 13:54:42 Warm blankets applied, and ad hugger turned on for patient comfort. 13:54:42 Correct patient and procedure confirmed by team. 13:54:43 ECG and BP/O2 sat monitors applied to patient. 14:03:13 Oxygen 2 l/min NC was administered by Jose Edwards RN; used for procedure; 14:03:21 Lidocaine 2% 20ml vial added to field was administered by Eldon Bennett MD; for local anesthetic; 14:03:27 Heparin Flush Bag (1000units/500ml NS) 2 bags added to field was administered by Eldon Bennett MD; used for procedure; 14:03:38 0.9% NaCl 100 ml/hr I.V. was administered by Jose Edwards RN; Per physician; 14:04:52 Vital chart was started 14:04:53 Baseline sample Acquired. 14:04:56 Rhythm: sinus rhythm 14:04:58 Full Disclosure recording started 14:05:02 H&P Date Dictated: 07/24/2016 Within 30 days and on chart.. 14:05:06 Pre-procedure instructions explained to patient. 14:05:06 Pre-op teaching completed and patient verbalized understanding. 14:05:07 Family in waiting room. 14:05:09 Patient NPO since Midnight. 14:05:40 Is the patient allergic to Iodine/contrast media? No. 14:05:41 Was the patient premedicated? No 14:05:43 Is patient on blood thinner?Yes 14:05:46 ACC The patient was administered the following blood thiners within the last 24 hours: ACCBrilinta 14:05:48 Patient diabetic? No. 14:05:50 Previous problem with sedation/anesthesia? No ? 14:05:51 Snore? Yes 14:05:52 Sleep apnea? No 14:05:56 Deviated septum? No 14:05:56 Opens mouth fully? Yes 14:05:57 Sticks out tongue? Yes 14:05:59 Airway obstruction? No ? 14:06:05 Dentures? No ? 14:06:09 Pre procedure: right dorsailis pedis pulse 1+ Palpable, but thready & weak; easily obliterated 14:06:12 Patient pain scale 0/10 ?. 14:06:30 IV patent on arrival in left forearm with 0.9% NaCl at [facility]. 14:06:36 Lab results completed and on chart. 14:06:41 Right groin area was prepped with chlora-prep and draped in sterile fashion 14:06:42 Alarms reviewed by R. N. 14:06:43 Sharps counted by scrub and verified by R.N. 14:10:11 Physician arrived 14:10:12 --------ALL STOP TIME OUT------ 14:10:12 Final Timeout: patient, procedure, and site verified with staff and physician. All members of the team are in agreement. 14:10:20 Right groin site verified by team. 14:10:23 Physical assessment completed. ASA score P 2 - A patient with mild systemic disease as per Eldon Bennett MD. 14:10:27 Sedation plan: IV Moderate Sedation Versed, Fentanyl 14:11:15 Fentanyl 50 mcg I.V. was administered by Jose Edwards RN; for sedation; 14:11:56 Versed 1 mg I.V. was administered by Jose Edwards RN; for sedation; 14:12:53 Use device set Femoral PCI 14:12:54 Acist Syringe opened to sterile field. 14:12:55 Acist Hand Control opened to sterile field. 14:12:55 Bag Decanter opened to sterile field. 14:12:56 Medline Cath Pack opened to sterile field. 14:12:56 Terumo 6Fr [place] Sheath opened to sterile field. 14:12:56 St Danny 260cm J .035 wire opened to sterile field. 14:12:57 Merit BasixCompak Inflation Kit opened to sterile field. 14:12:57 Acist Manifold opened to sterile field. 14:12:58 Tegaderm 4 x 4 opened to sterile field. 14:13:06 Lindquist Olympia 300cm 0.014 guide wire opened to sterile field. 14:13:35 Procedure started. 14:15:05 Local anesthetic to right femoral artery with Lidocaine 2% by Eldon Bennett MD.INITIAL ACCESS ONLY 14:15:14 A 6 Fr Short sheath was inserted into the Right Femoral artery 14:16:30 Versed 1 mg I.V. was administered by Jose Edwards RN; for sedation; 14:16:37 Fentanyl 50 mcg I.V. was administered by Jose Edwards RN; for sedation; 14:17:07 Medtronic Launcher 6Fr JL 3.5 guide catheter opened to sterile field. 14:17:08 6 Fr jl 3.5 guide catheter was inserted over the wire 14:18:35 LCA angiography performed. 14:18:38 Injector settings: Ml/sec: 3, Volume: 6, 14:19:20 Lindquist Whisper J 300cm 0.014 guide wire opened to sterile field. 14:20:10 Heparin Bolus 4000 units I.V. was administered by Jose Edwards RN; for antiplatelet therapy; verified with dr shafer 14:20:43 whisper wire advanced. 14:23:21 Wire removed. damaged. 14:23:37 Lindquist Whisper J 300cm 0.014 guide wire opened to sterile field. 14:23:57 whisper wire advanced. 14:25:35 The Trade Sci [place] 2.5 X 12 balloon was advanced and then removed because of failure to cross lesion 14:27:16 Versed 1 mg I.V. was administered by Jose Edwards RN; for sedation; 14:27:21 Fentanyl 50 mcg I.V. was administered by Jose Edwards RN; for sedation; 14:28:42 Inflation number: 1 A Euphora 1.5 x 15 Balloon was prepped and advanced across the Mid CX, then inflated to 12 [place] for 0:30 (min:sec). 14:29:56 Balloon removed over the wire. 14:31:29 whisper wire removed; choice pt wire advanced 14:31:51 Trade Sci Choice PT Extra Support J 300cm .014 gu opened to sterile field. 14:32:55 Inflation number: 2 A Trade Sci [place] 2.5 X 12 balloon was prepped and advanced across the Mid CX, then inflated to 10 [place] for 0:30 (min:sec). 14:33:08 Versed 1 mg I.V. was administered by Jose Edwards RN; for sedation; 14:34:01 Balloon removed over the wire. 14:37:38 Inflation Number: 3 A Medtronic Resolute 3.0 X 15 stent was prepped and advanced across the Mid CX. The stent was deployed at 12 [place] for 0:30 (min:sec). 14:38:27 Stent catheter was removed intact over wire. 14:40:05 Heparin Bolus 2000 units I.V. was administered by Jose Edwards RN; for antiplatelet therapy; verified with dr shafer 14:40:59 Inflation Number: 1 A Medtronic Resolute 3.0 X 12 stent was prepped and advanced across the Prox CX. The stent was deployed at 14 [place] for 0:30 (min:sec). 14:41:05 Fentanyl 25 mcg I.V. was administered by Eldon Bennett MD; for sedation; 14:41:48 Stent catheter was removed intact over wire. 14:42:45 Wire removed. 14:42:55 Lindquist Whisper J 300cm 0.014 guide wire opened to sterile field. 14:43:08 Nitroglycerin IC/IA 150 mcg I.C. was administered by Eldon Bennett MD; for vasodilation; 14:44:15 whisper wire advanced. 14:46:51 Wire redirected to lad. 14:50:26 Inflation number: 1 The KeraFAST [place] 2.5 X 12 balloon was reinflated across the Mid LAD, to 10 [place] for 0:30 (min:sec). 14:51:08 Balloon removed over the wire. 14:54:01 Inflation Number: 2 A Medtronic Resolute 2.5 X 14 stent was prepped and advanced across the Mid LAD. The stent was deployed at 14 [place] for 0:10 (min:sec). 14:55:06 Stent catheter was removed intact over wire. 14:58:56 Inflation Number: 1 A Medtronic Resolute 3.0 X 15 stent was prepped and advanced across the Prox LAD. The stent was deployed at 14 [place] for 0:30 (min:sec). 15:00:16 Stent catheter was removed intact over wire. 15:00:18 Wire removed. 15:00:19 Guide catheter removed. 15:00:42 A Diagnostic Infinity 5Fr 3DRC catheter was advanced over the wire and used for Right Coronary Angiography. 15:01:00 RCA angiography performed. 15:01:02 Injector settings: Ml/sec: 3, Volume: 6, 15:03:51 Catheter removed. 15:04:02 Cordis 6Fr Exoseal opened to sterile field. 15:04:20 Sheath removed intact; hemostasis achieved with Exoseal to the Right Femoral artery. 15:04:21 Procedure ended.(Physican Out) 15:04:43 Fluoroscopy time 14.90 minutes. 15:04:54 Flurop Dose total: 1289 15:04:54 Fluoroscopy dose: 1289 mGy 15:05:06 Contrast amount:Isovue 370 184ml. 15:05:08 Sharps counted by scrub and verified by R.N. 15:05:09 Insertion/operative site no bleeding no hematoma. 15:05:12 Post-op/insertion site Right Femoral artery dressed using a 4 x 4 and Tegaderm. 15:05:15 Post right femoral artery:stable 15:05:16 Post Procedure Pulses reassessed and unchanged 15:05:23 Post procedure rhythm: unchanged. 15:05:26 Estimated blood loss: 5 ml 15:05:28 Post procedure instruction explained to patient.Patient verbalizes understanding. 15:05:28 Patient needs reinforcement of post procedure teaching. 15:06:26 Procedure type changed to Cath procedure, PCI procedure, Coronary Stent Initial x2, Miscellaneous Procedures, Moderate Sedation up to 15 minutes, Moderate Sedation up to 45 minutes 15:06:27 Procedure and supply charges have been captured, reviewed, submitted and are correct. 15:06:46 Procedure Complication : No complications 15:06:49 Vital chart was stopped 15:06:49 See physician's report for complete and final results. 15:06:58 Report given to Pre/Post Procedure Room. 15:07:02 Patient transfered to Pre/Post Procedure Room with Stretcher. 15:07:04 Procedure ended. 15:07:04 Full Disclosure recording stopped 15:07:12 ACC-PCI Only Patient was given prescriptions, or instructed by Eldon Bennett MD to start/continue the following medications upon discharge: Brilinta 15:07:14 End room use (Document Last) 15:08:07 Patient Height : 147.32 cm 15:08:13 Patient Weight : 61.23 kg Intervention Summary Intervention Notes Time ActionType Lesion and Equipment Action# Pressure Duration Attributes Used 14:25:35 Discard Trade Balloon Sci [place] 2.5 X 12 balloon 14:28:42 Inflate Mid CX Euphora 1 12 00:30 balloon 1.5 x 15 Balloon 14:32:55 Inflate Mid CX Trade 2 10 00:30 balloon Sci [place] 2.5 X 12 balloon 14:37:38 Place stent Mid CX Medtronic 3 12 00:30 Resolute 3.0 X 15 stent 14:40:59 Place stent Prox CX Medtronic 1 14 00:30 Resolute 3.0 X 12 stent 14:50:26 Reinflate Mid LAD Trade 1 10 00:30 balloon Sci [place] 2.5 X 12 balloon 14:54:01 Place stent Mid LAD Medtronic 2 14 00:10 Resolute 2.5 X 14 stent 14:58:56 Place stent Prox LAD Medtronic 1 14 00:30 Resolute 3.0 X 15 stent Device Usage Item Name Manufacture Quantity Catalog Number Hospital Part Current Mini mal Lot# / Charge Number Stock Stock Serial# Code Acist Acist 1 [id number] [id number] 477302 739054 20 Syringe Medical Systems Inc Acist Hand Acist 1 30819 742746 143063 390383 5 Control Medical Systems Inc Bag Microtek 1 2002S 049985 28412 193253 5 Vindicia Inc. Medline Cardinal 1 [id number] 772820 17737 619511 5 [place] Terumo 6Fr Terumo 1 [id number] 554970 495245 138842 [address] [place] [address] St Danny 1 783175 461459 426792 663804 30 260cm J .035 wire Merit Merit 1 [id number] 552390 318778 197538 15 BasBetter ATM Services Medical Inflation Kit Acist Acist 1 23745 195180 407902 787279 5 JobScout Medical Systems Inc Tegaderm 4 1 [id number] 825023 926256 093189 5 x 4 Lindquist Lindquist 1 [id number] 092709 821489 100461 1 Olympia Vascular 300cm 0.014 guide wire Medtronic Medtronic 1 [id number] 324377 46788 681517 1 Launcher 6Fr JL 3.5 guide catheter Lindquist Lindquist 3 [id number] 513355 061515 122512 5 Whisper J Vascular 300cm 0.014 guide wire Trade Sci Trade 1 [id number] 174649 240699 301639 1 [id number] Bitly Scientific 2.5 X 12 balloon Euphora 1.5 Medtronic 1 [id number] 617004 966524 470981 5 [id number] x 15 Balloon Trade Sci Trade 1 [id number] 436544 663802 885348 5 Choice PT Scientific Extra Support J 300cm .014 gu Medtronic Medtronic 2 [id number] 139014 772374 0 [id number] Resolute [id number] 3.0 X 15 stent Medtronic Medtronic 1 [id number] 328667 077093 7 [id number] Resolute 3.0 X 12 stent Medtronic Medtronic 1 [id number] 503090 500144 6 [id number] Resolute 2.5 X 14 stent Diagnostic Cardinal 1 [id number] 447980 723350 378842 9 InVenture 5Fr 3DRC catheter Cordis 6Fr Cardinal 1 [id number] 710839 762480 309817 10 [facility] Net Transmit & Receive Signature Audit [place] Stage Time Signature Unsigned Intra-Procedure 07/24/2016 Paige Billingsley 3:09:32 PM RT(R) Signatures Monitor : Ree Stone Signature : RT Date : Time : [facility] [address] [facility] [address] [address]
[2016-07-24 12:15] VITALS: BP 131/67; Ht 147.3 cm; Wt 61.4 kg
[2016-07-24 12:29] LABS: BASOPHILS 0.2 % (0-2); EOSINOPHILS 3.5 % (0-7); HEMATOCRIT 43.5 % (36.0-48.0); HEMOGLOBIN 14.7 g/dL (12-16); IMMATURE GRANULOCYTES 0.2 % (0-5); LYMPHOCYTES 18.6 % (15-50); MCH 31.4 pg (26.0-34.0); MCHC 33.8 g/dL (31.0-37.0); MCV 92.9 fL (80.0-100.0); MEAN PLATELET VOLUME 9.5 fL (7.4-10.4); MONOCYTES 8.6 % (2-11); NEUTROPHILS 68.9 % (40-80); PLATELET COUNT 241 10x3/uL (130-400); RBC 4.68 10x6/uL (4.00-5.40); RDW 13.3 % (11.5-14.5); WBC 8.3 10x3/uL (4.8-10.8)
[2016-07-24 12:40] LABS: CALC OSMOLALITY 276 mosm/kg (275-300); CALCIUM 9.1 mg/dL (8.5-10.1); CARBON DIOXIDE 27.2 mmol/L (21.0-32.0); CHLORIDE - SERUM 103 mmol/L (98-107); CREATININE - SERUM 0.7 mg/dL (0.6-1.3); POTASSIUM - SERUM 4.2 mmol/L (3.5-5.1); SODIUM 139 mmol/L (136-145); UREA NITROGEN 10 mg/dL (7-18); eGFR NON AFRICAN AMERICAN > 90 mL/min (90-120)
[2016-07-24 12:48] LABS: GLUCOSE 90 mg/dL (74-106)
--- NOTE | 2016-07-24 15:20 | NUR ---
1520 VSS WITH CHEST PAIN DENIED. 6 FR EXOSEAL R/GROIN CDI NO BLEEDING NO HEMATOMA NOTED. INSTRUCTED PATIENT TO KEEP HEAD FLAT ON PILLOW WITH RLE STRAIGHT. 1545 RESTING QUIETLY WITH NO DISTRESS 1600 DR RENDON AT BEDSIDE SPEAKING WITH FAMILY. VSS WITH 6 FR EXOSEAL R/GROIN CDI NO BLEEDING NO HEMATOMA NOTED
--- NOTE | 2016-07-24 16:25 | NUR ---
6 FR EXOSEAL R/GROIN CDI NO BLEEDING NO HEMATOMA NOTED. VSS WITH CHEST PAIN DENIED FAMILY AT SIDE ASSISTING WITH SANDWICH AND SODA
--- NOTE | 2016-07-24 16:49 | NUR ---
VSS WITH 6 FR EXOSEAL R/GROIN CDI NO BLEEDING NO HEMATOMA NOTED RESTING QUIETLY WITH NO DISTRESS
--- NOTE | 2016-07-24 18:50 | NUR ---
IV D'C WITH CATH TIP INTACT, WRITTEN AND VERBAL INSTRUCTIONS GIVEN TO PT AND DAUGHTER, VERBAL UNDERSTANDING NOTED. DENIES FURTHUR NEEDS.
== END 2016-07-24 19:00 | disposition home or self-care (01) ==
LOC: D.CATH 11:45
PROVIDERS: Internal Medicine Interventional Cardiology
DX: I20.9 Angina pectoris, unspecified (principal); I10 Essential (primary) hypertension; R00.2 Palpitations; R94.31 Abnormal electrocardiogram [ECG] [EKG]; F17.200 Nicotine dependence, unspecified, uncomplicated; Z01.812 Encounter for preprocedural laboratory examination

== ENCOUNTER 2016-09-03 22:43 | Emergency (ER) | payer BC ==
[2016-07-24 12:15] VITALS: BMI 28.2
[2016-09-03 23:26] LABS: BASOPHILS 0.3 % (0-2); EOSINOPHILS 5.4 % (0-7); HEMATOCRIT 39.3 % (36.0-48.0); HEMOGLOBIN 13.2 g/dL (12-16); IMMATURE GRANULOCYTES 0.2 % (0-5); LYMPHOCYTES 29.4 % (15-50); MCH 31.4 pg (26.0-34.0); MCHC 33.6 g/dL (31.0-37.0); MCV 93.6 fL (80.0-100.0); MEAN PLATELET VOLUME 9.1 fL (7.4-10.4); MONOCYTES 9.4 % (2-11); NEUTROPHILS 55.3 % (40-80); PLATELET COUNT 253 10x3/uL (130-400); RDW 12.6 % (11.5-14.5); WBC 9.4 10x3/uL (4.8-10.8)
[2016-09-03 23:41] LABS: ALBUMIN 3.2 g/dL (3.4-5.0); ALKALINE PHOSPHATASE 70 U/L (46-116); ALT (SGPT) 20 U/L (10-68); CALC OSMOLALITY 278 mosm/kg (275-300); CALCIUM 8.6 mg/dL (8.5-10.1); CARBON DIOXIDE 27.6 mmol/L (21.0-32.0); CHLORIDE - SERUM 105 mmol/L (98-107); CREATININE - SERUM 0.9 mg/dL (0.6-1.3); GLUCOSE 87 mg/dL (74-106); POTASSIUM - SERUM 3.7 mmol/L (3.5-5.1); PROTEIN - SERUM 6.3 g/dL (6.4-8.2); SODIUM 140 mmol/L (136-145); UREA NITROGEN 16 mg/dL (7-18); eGFR NON AFRICAN AMERICAN 71 mL/min (90-120)
[2016-09-03 23:51] LABS: CHOL - HDL RATIO 2.8 ratio (2.3-4.1); CHOLESTEROL, TOTAL 161 mg/dL (0-200); CKMB 1.1 U/L (0.0-3.6); CREATINE KINASE 87 UL (21-215); HDL CHOLESTEROL 58 mg/dL (32-96); LDL CHOLESTEROL 88 mg/dL (0-100); LDL-HDL RATIO 1.5 ratio (1.5-3.5); TRIGLYCERIDE 77 mg/dL (30-200); TROPONIN-I < 0.017 ng/mL (0.000-0.060)
== END 2016-09-04 03:26 | disposition home or self-care (01) ==
LOC: D.ER 22:43
PROVIDERS: Emergency Medicine
DX: R07.9 Chest pain, unspecified (principal)

== ENCOUNTER 2016-12-27 11:26 | Outpatient (CLI) | payer BC ==
--- NOTE | ~2016-12-27 | HEMODYNAMI ---
PATIENT:LEONA SINGER MEDICAL RECORD: [id number] : 69 LOCATION:[facility] ADMISSION DATE: 12/27/16 Generatedon:12/27/201614:42 Patient name: LEONA SINGER Patient #: [id number] : 1965 Date of study: 12/27/2016 Page: Of Hemodynamic Procedure Report Patient Data Patient Demographics Procedure consent was obtained First Name: LEONA Gender: Female Last Name: LUCRECIA : 1965 Middle Initial: MOIZ Age: 51 year(s) Patient #: [id number] Race: SSN: [id number] Additional ID: [id number] Contact details Address: [address] [place] [address] State: [place] City: [place] Zip code: [address] Past Medical History Allergies: No known allergies Admission Admission Data Admission Date: 12/27/2016 Admission Time: 11:26 Procedure Procedure Types Cath Procedure Diagnostic Procedure C LHC w/Coronaries Miscellaneous Procedures Moderate Sedation up to 15 minutes Procedure Description Procedure Date Procedure Date: 12/27/2016 Procedure Start Time: 14:24 Procedure End Time: 14:41 Procedure Staff Name Function Eldon Bennett MD Performing Physician Alvaro Dawson RT Scrub Jose Edwards RN Nurse Svetlana Vee RT Monitor Procedure Data Cath Procedure Fluoroscopy Diagnostic fluoroscopy Total fluoroscopy Time: 4.9 time: 4.9 min min Diagnostic fluoroscopy Total fluoroscopy dose: 164 dose: 164 mGy mGy Contrast Material Contrast Material Type Amount (ml) Isovue 300 79 Entry Location Entry Primary Successful Side Size Upsize Upsize Entry Closure Sin ccessful Closure Location (Fr) 1 (Fr) 2 (Fr) Remarks Device Remarks Radial Right 6 Fr Mechanical artery Short Compression Estimated blood loss: 5 ml Diagnostic catheters Device Type Used For End Catheter Placement Diagnostic Terumo 5Fr LV Angiography [place] 110cm catheter Diagnostic Terumo 5Fr Right Coronary [place] 110cm catheter Angiography Diagnostic Terumo 5Fr Left Coronary [place] 110cm catheter Angiography Procedure Complications No complications Procedure Medications Medication Administration Route Dosage Oxygen NC 2 l/min Lidocaine 2% added to field 20 Heparin Flush Bag added to field 2 bags (1000units/500ml NS) Benadryl I.V. 50 mg 0.9% NaCl I.V. 100 ml/hr Versed I.V. 2 mg Fentanyl I.V. 100 mcg Radial Cocktail I.A. 1 syringe (Verapomil 2mg/Nitro 400mcg/Heparin 1500units) Versed I.V. 1 mg Fentanyl I.V. 50 mcg Hemodynamics Rest Heart Rate: 62 (bpm) Pressure Samples Time Site Value (mmHg) Purpose Heart Use Rate(bpm) 14:26 LV 125/-14,36 EDP 72 14:26 AO 96/60(78) Pullback 69 14:26 LV 115/8,9 Pullback 69 Gradients Valve Time Site 1 Site 2 Mean SEP/DFP Peak To Heart Use (mmHg) (sec/min) Peak Rate (mmHg) (bpm) Aortic 14:26 LV AO 12 20 19 69 115/8,9 96/60(78) Calculations Valve P-P Mean Valve Index Valve Source Name Gradient Area Flow (cm2) Aortic 19 12 19 12 Snapshots Pre Cath Intra NCS Post Cath Vital Signs Time Heart Resp SPO2 etCO2 NIBP Rhythm Pain Sedation Rate (ipm) (%) (mmHg) (mmHg) Status Level (bpm) 14:17:02 59 17 100 26.9 147/69(97) NSR 0 (11) 10(A) , No pain 14:21:13 66 19 100 11.2 127/63(93) NSR 0 (11) 10(A) , No pain 14:25:30 65 15 100 0 123/57(78) NSR 0 (11) 9(A) , No pain 14:29:50 60 16 100 0 117/47(96) NSR 0 (11) 9(A) , No pain 14:34:02 66 15 100 1.4 111/51(81) NSR 0 (11) 9(A) , No pain 14:38:18 67 16 100 35.2 106/56(83) NSR 0 (11) 9(A) , No pain 14:41:38 62 15 100 38.2 114/53(72) NSR 0 (11) 10(A) , No pain Medications Time Medication Route Dose Verified Delivered Reason Notes Effectiveness by by 14:18:43 Oxygen NC 2 l/min Eldon Garcia used for [facility] Marshal Edwards RN procedure 14:18:50 Lidocaine 2% added 20ml Eldon Colón for local to vial [facility] anesthetic field MD PIÑA 14:19:33 Heparin Flush added 2 bags Eldon Colón used for Bag to [facility] procedure (1000units/500ml field MD PIÑA NS) 14:19:42 Benadryl I.V. 50 mg Eldon Garcia used for [facility] Marshal Edwards RN procedure 14:19:52 0.9% NaCl I.V. 100 Eldon Garcia Per ml/hr [facility] Marshal Edwards RN physician 14:23:33 Versed I.V. 2 mg Eldon Garcia for sedation [facility] Marshal Edwards RN, MD 14:23:39 Fentanyl I.V. 100 mcg Eldon Garcia for sedation [facility] Marshal Edwards RN, MD 14:24:46 Radial Cocktail I.A. 1 Eldon Colón for (Verapomil syringe [facility] vasodilation 2mg/Nitro MD PIÑA 400mcg/Heparin 1500units) 14:29:15 Versed I.V. 1 mg Eldon Garcia for sedation [facility] Marshal Edwards RN, MD 14:29:21 Fentanyl I.V. 50 mcg Eldon Garcia for sedation [facility] Marshal Edwards RN, MD Procedure Log Time Note 13:58:09 Jose Edwards RN sent for patient. Start room use. 13:58:10 Time tracking: Regular hours 13:58:13 Plan of Care:Hemodynamics will remain stable., Cardiac rhythm will remain stable., Comfort level will be maintained., Respiratory function will remain adequate., Patient/ family verbilizes understanding of procedure., Procedure tolerated without complication., Recovers from procedure without complications.. 14:04:13 Patient received from Pre/Post Procedure Room to CCL 3 Alert and oriented. Tansferred to table in Supine position. 14:04:28 Warm blankets applied, and ad hugger turned on for patient comfort. 14:04:29 Correct patient and procedure confirmed by team. 14:15:48 Vital chart was started 14:18:10 Signed procedure consent form obtained from patient. 14:18:11 ECG and BP/O2 sat monitors applied to patient. 14:18:11 Full Disclosure recording started 14:18:15 Rhythm: sinus rhythm 14:18:18 Baseline sample Acquired. 14:18:19 - 14:18:37 H&P Date Dictated: 12/21/2016 Within 30 days and on chart., H&P Addendu m completed by physician on day of procedure. (MUST COMPLETE FOR ALL OUTPATIENTS). 14:18:38 Pre-procedure instructions explained to patient. 14:18:39 Pre-op teaching completed and patient verbalized understanding. 14:18:40 Family in patients room. 14:18:43 Oxygen 2 l/min NC was administered by Jose Edwards RN; used for procedure; 14:18:46 Patient NPO since Midnight. 14:18:50 Lidocaine 2% 20ml vial added to field was administered by Eldon Bennett MD; for local anesthetic; 14:18:54 Patient allergic to No known allergies 14:18:59 Is the patient allergic to Iodine/contrast media? No. 14:19:00 Is patient on blood thinner?No 14:19:07 Patient diabetic? No. 14:19:13 Snore? No 14:19:16 Previous problem with sedation/anesthesia? No ? 14:19:19 Sleep apnea? No 14:19:20 Deviated septum? No 14:19:21 Opens mouth fully? Yes 14:19:22 Sticks out tongue? Yes 14:19:24 Airway obstruction? No ? 14:19:26 Dentures? No ? 14:19:29 Pre procedure: right dorsailis pedis pulse 2+ Normal; easily identifiable; not easily obliterated 14:19:30 Modified Daryl's test Ulnar < 7 seconds 14:19:32 Patient pain scale 0/10 ?. 14:19:33 Heparin Flush Bag (1000units/500ml NS) 2 bags added to field was administered by Eldon Bennett MD; used for procedure; 14:19:39 IV patent on arrival in left antecubital with 0.9% NaCl at [facility]. 14:19:42 Benadryl 50 mg I.V. was administered by oJse Edwards RN; used for procedure; 14:19:44 Lab results completed and on chart. 14:19:52 0.9% NaCl 100 ml/hr I.V. was administered by Jose Edwards RN; Per physician; 14:19:54 Right Radial & Right Groin area was prepped with chlora-prep and draped in sterile fashion 14:19:55 Alarms reviewed by R. N. 14:19:55 Sharps counted by scrub and verified by R.N. 14:19:59 Use device set Radial Dx 14:20:00 Acist Syringe opened to sterile field. 14:20:01 Medline Cath Pack opened to sterile field. 14:20:01 Bag Decanter opened to sterile field. 14:20:02 Terumo 6Fr Slender Glidesheath opened to sterile field. 14:20:02 St Danny 260cm J .035 wire opened to sterile field. 14:20:03 Acist Hand Control opened to sterile field. 14:20:03 Acist Manifold opened to sterile field. 14:20:04 Tegaderm 4 x 4 opened to sterile field. 14:22:10 Final Timeout: patient, procedure, and site verified with staff and physician. All members of the team are in agreement. 14:22:13 Right Radial site verified by team. 14:22:15 Physical assessment completed. ASA score P 2 - A patient with mild systemic disease as per Eldon Bennett MD. 14:22:18 Sedation plan: IV Moderate Sedation Versed, Fentanyl 14:23:33 Versed 2 mg I.V. was administered by Jose Edwards RN; for sedation; 14:23:39 Fentanyl 100 mcg I.V. was administered by Jose Edwards RN; for sedation; 14:24:41 Procedure started. 14:24:46 Radial Cocktail (Verapomil 2mg/Nitro 400mcg/Heparin 1500units) 1 syring e I.A. was administered by Eldon Bennett MD; for vasodilation; 14:24:47 Local anesthetic to right radial artery with Lidocaine 2% by Eldon Galindo MD.INITIAL ACCESS ONLY 14:24:50 Zero performed for pressure channel P1 14:24:53 Zero performed for pressure channel P1 14:24:55 Zero performed for pressure channel P1 14:24:58 Zero performed for pressure channel P1 14:25:00 Zero performed for pressure channel P1 14:25:16 A 6 Fr Short sheath was inserted into the Right Radial artery 14:26:03 A Diagnostic Terumo 5Fr [place] 110cm catheter was advanced over the wire and used for LV Angiography. 14:27:02 LV gram done using FERNANDES 14:27:04 LV hemodynamics recorded. 14:27:09 Injector settings: Ml/sec: 5, Volume: 15, 14:27:19 EF : 55 % 14:27:25 A Diagnostic Terumo 5Fr [place] 110cm catheter was advanced over the wire and used for Right Coronary Angiography. 14:27:54 A Diagnostic Terumo 5Fr [place] 110cm catheter was advanced over the wire and used for Left Coronary Angiography. Removed, unable to visualize LAD. 14:29:15 Versed 1 mg I.V. was administered by Jose Edwards RN; for sedation; 14:29:21 Fentanyl 50 mcg I.V. was administered by Jose Edwards RN; for sedation; 14:31:23 Medtronic Launcher 6Fr EBU 3.0 guide catheter opened to sterile field. 14:31:39 6 Fr EBU 3.0 guide catheter was inserted over the wire 14:32:35 Guide Catheter removed. unable to cannulate vessel. 14:33:42 Cordis 6FR XBLAD 3.5 guide catheter opened to sterile field. 14:36:15 LCA angiography performed. 14:36:28 Catheter removed. 14:37:45 Sheath removed intact; hemostasis achieved with Mechanical Compression to the Right Radial artery. 14:37:47 Procedure ended.(Physican Out) 14:37:55 Fluoroscopy time 04.90 minutes. 14:38:01 Fluoroscopy dose: 164 mGy 14:38:01 Flurop Dose total: 164 14:38:04 Contrast amount:Isovue 300 79ml. 14:38:05 Sharps counted by scrub and verified by R.N. 14:38:07 TR band inflated with 9cc of air. 14:38:08 Insertion/operative site no bleeding no hematoma. 14:38:13 Post right radial artery:stable, clean and dry 14:38:17 Post Procedure Pulses reassessed and unchanged 14:38:20 Post-procedure physical assessment completed. ASA score P 2 - A patient with mild systemic disease as per Eldon Bennett MD. 14:38:22 Post procedure rhythm: unchanged. 14:38:29 Estimated blood loss: 5 ml 14:38:31 Post procedure instruction explained to patient.Patient verbalizes understanding. 14:38:31 Patient needs reinforcement of post procedure teaching. 14:38:45 Procedure type changed to Cath procedure, Diagnostic procedure, LHC, LH C w/Coronaries, Miscellaneous Procedures, Moderate Sedation up to 15 minutes 14:38:52 Procedure Complication : No complications 14:39:06 Terumo TR Band Standard opened to sterile field. 14:40:47 Procedure and supply charges have been captured, reviewed, submitted an d are correct. 14:40:47 Vital chart was stopped 14:40:48 See physician's report for complete and final results. 14:40:50 Report given to Pre/Post Procedure Room. 14:41:15 Patient transfered to Pre/Post Procedure Room with Stretcher. 14:41:17 Procedure ended. 14:41:17 Full Disclosure recording stopped 14:41:26 End room use (Document Last) Device Usage Item Name Manufacture Quantity Catalog Hospital Part Current Minimal Lot# / Number Charge Number Stock Stock Serial# Code Acist Acist 1 24615 755850 558689 256422 20 Syringe Medical Systems Inc Medline Cardinal 1 [id number] 61736 840225 5 Cath Pack Health Bag Microtek 1 2002S 130701 69422 195225 5 Stream[employer] Inc. Terumo 6Fr Terumo 1 [id number] 358683 538679 784710 [address] St Danny 1 [id number] 791871 523072 471669 30 260cm J .035 wire Acist Hand Acist 1 80555 341798 319216 812582 5 Control Medical Systems Inc Acist Acist 1 80810 972365 011597 178428 5 Manifold Medical Systems Inc Tegaderm 4 3M 1 1626W 268815 937562 164707 5 x 4 Diagnostic Terumo 1 79-8343 294995 856415 789278 5 Terumo 5Fr [place] 110cm catheter Medtronic Medtronic 1 [id number] 310560 83637 543124 0 Launcher 6Fr EBU 3.0 guide catheter Cordis 6FR Cardinal 1 [id number] 428017 261646 520827 10 XBLAD 3.5 Health guide catheter Terumo TR [place] [address] [id number] 018628 192609 693274 40 Band Standard Signature Audit Mcconnell Stage Time Signature Unsigned Intra-Procedure 12/27/2016 Svetlana 2:42:06 PM Counts RT(R) Signatures Monitor : Svetlana Signature : Counts RT Date : Time : [place] [id number] [facility] [place] [address]
[2016-12-27 11:47] VITALS: BP 152/78; BMI 27.6
[2016-12-27 12:19] LABS: BASOPHILS 0.5 % (0-2); EOSINOPHILS 3.2 % (0-7); HEMATOCRIT 39.5 % (36.0-48.0); HEMOGLOBIN 13.4 g/dL (12-16); IMMATURE GRANULOCYTES 0.3 % (0-5); LYMPHOCYTES 30.4 % (15-50); MCHC 33.9 g/dL (31.0-37.0); MCV 91.4 fL (80.0-100.0); MEAN PLATELET VOLUME 9.2 fL (7.4-10.4); MONOCYTES 6.5 % (2-11); NEUTROPHILS 59.1 % (40-80); PLATELET COUNT 246 10x3/uL (130-400); RBC 4.32 10x6/uL (4.00-5.40); RDW 13.2 % (11.5-14.5); WBC 7.5 10x3/uL (4.8-10.8)
[2016-12-27 12:31] LABS: CALC OSMOLALITY 277 mosm/kg (275-300); CARBON DIOXIDE 27.8 mmol/L (21.0-32.0); CHLORIDE - SERUM 105 mmol/L (98-107); CREATININE - SERUM 0.6 mg/dL (0.6-1.3); GLUCOSE 90 mg/dL (74-106); POTASSIUM - SERUM 3.7 mmol/L (3.5-5.1); SODIUM 140 mmol/L (136-145); UREA NITROGEN 9 mg/dL (7-18); eGFR NON AFRICAN AMERICAN > 90 mL/min (90-120)
--- NOTE | 2016-12-28 13:46 | OP ---
PATIENT NAME: LEONA JOSEPH MEDICAL RECORD: [id number] :69 LOCATION:D.CAT ADMISSION DATE: SURGEON: BRITTANY RENDON MD DATE OF OPERATION: 12/27/2016 PROCEDURES: Left heart catheterization, selective coronary angiography, right radial approach. CATHETERS: A 5-Luxembourgish sheath, 5/4 left and right Puneet, 5/4 pig. The procedure was well tolerated and the patient returned to joseph. Sheath removed and TR band was placed. FINDINGS: Left ventriculography in 30-degree FERNANDES view: Normal wall motion, normal systolic function. CORONARY ANATOMY: LEFT MAIN: Left main is free of disease. LAD: Previously placed stent is widely patent. CIRCUMFLEX: Widely patent stents. RIGHT CORONARY ARTERY: Again, widely patent stents. IMPRESSION: No evidence of restenosis and no progression of [place] disease. TRANSINT:[id number] Voice Confirmation ID: [id number] DOCUMENT ID: [id number] BRITTANY RENDON MD at 1346 CC: [id number] DICTATION DATE: 12/27/[address] CLEANING EQUIPMENT OPERATOR: 12/27/16 1519 DEP CLI 12/27/16 [facility] [address] [place] [address]
== END 2016-12-27 17:00 | disposition home or self-care (01) ==
LOC: D.CATH 11:26
PROVIDERS: Internal Medicine Interventional Cardiology
DX: I25.10 Atherosclerotic heart disease of native coronary artery without angina pectoris (principal); Z95.5 Presence of coronary angioplasty implant and graft; Z01.812 Encounter for preprocedural laboratory examination

== ENCOUNTER 2017-07-23 14:36 | Emergency (ER) | payer OTHER, BC | END 2017-07-23 18:35 | disposition home or self-care (01) | LOC: D.ER 14:36 | DX: R51 Headache (principal); R11.2 Nausea with vomiting, unspecified; Y04.2XXA Assault by strike against or bumped into by another person, initial encounter; Y93.89 Activity, other specified; Y92.239 Unspecified place in hospital as the place of occurrence of the external cause; F17.200 Nicotine dependence, unspecified, uncomplicated ==

== ENCOUNTER 2017-08-19 11:24 | Observation (INO) | payer BC ==
[2017-08-19] VITALS (7 sets, daily range): BP systolic 100–145; BP diastolic 57–79; Ht 149.9 cm; Wt 58.3 kg
[~2017-08-19] VITALS: Ht 149.9 cm; Wt 58.3 kg
--- NOTE | ~2017-08-19 | ST ---
PATIENT:LEONA SINGER MEDICAL RECORD: [id number] SEX: F [facility] ORDER #: ADMISSION DATE: 08/19/17 AGE OF PATIENT: 51 REFERRING PHYSICIAN: INTERPRETING PHYSICIAN: VIRA BYRNES MD DATE OF SERVICE: 08/20/2017 PROCEDURE: Lexiscan-directed nuclear cardiac stress test. DESCRIPTION OF PROCEDURE: The patient underwent a standard Lexiscan stress test with a standard infusion of Lexiscan without any difficulty. She did have mild fullness in her chest. There were no significant EKG changes before, during, or after the infusion. The infusion and protocol were completed without difficulty. ATTENDING PHYSICIAN: Dr. Teresa The nuclear infusion both rest and stress imaging were done on the same day with 11.0 mCi of sestamibi injected at 8 a.m. and then 29.9 mCi of sestamibi injected at 11:15 a.m. The gated imaging showed good homogeneous uptake and ejection fraction of 68%. There were no wall motion abnormalities. SPECT imaging: There is good homogeneous distribution throughout the myocardium. There were no perfusion deficits that would be considered consistent with infarction or ischemia. CONCLUSION: This is a negative nuclear stress test with no evidence of infarction or ischemia and with preserved left ventricular systolic function. TRANSINT:[id number] Voice Confirmation ID: [id number] DOCUMENT ID: [id number] VIRA BYRNES MD at 1147 CC: [id number] DICTATION DATE: 08/21/17 0808 SOLUTIONS EXECUTIVE SECURITY: 08/21/17 0840 DIS IN 08/21/17 [place] [id number] [place] [id number]
--- NOTE | ~2017-08-19 | EC ---
PATIENT:LEONA SINGER DATE OF SERVICE: 08/19/17 SEX: F MEDICAL RECORD: [id number] DATE OF : 69 LOCATION:D. D.211 AGE OF PATIENT: 51 ADMISSION DATE: 08/19/17 REFERRING PHYSICIAN: INTERPRETING PHYSICIAN: VIRA BYRNES MD ECHOCARDIOGRAM REPORT ECHO CHARGES 4 ECHO COMPLETE Date: 08/20 CLINICAL DIAGNOSIS: CP ECHOCARDIOGRAPHIC MEASUREMENTS (adult normal given) AC root (d.<3.7cm) 2.8 cm LV Septum d (<1.2 cm> 1.2 cm Valve Excursion 2.1 cm LV Septum (systole) 1.8 cm Left Atria (s.<4.0cm> 3.4 cm LVPW d(<1.2cm) 1.3 cm RV (d.<2.3cm) 2.4 cm LVPW (sytole) 1.7 cm LV diastole(<5.6CM) 4.5 cm MV E-F(>70mm/sec) cm LV systole 2.3 cm LVOT Diameter 1.9 cm MV exc.(>10mm) cm Est.ejection fraction (50-75%) % DOPPLER: LVIT cm/sec A 107 cm/sec E 96.0 cm/sec LA cm/sec RVSP 31.0 mmHg LVOT 93.0 cm/sec AOP1/2T m/s Asc. Ao 133 cm/sec RVOT 69.0 cm/sec RA cm/sec PA 78.0 cm/sec AV Gradient Peak 7.0 mmHg AV Mean 3.1 mmHg AV Area 1.8 cm MV Gradient Peak 4.9 mmHg MV Mean 1.6 mmHg MV Area cm COMMENTS: Crimping Press Operator: Mark GILBERTOE Marker Shipments: 4 Dr. Byrnes TAPE# PACS Pericardial Effusion N DATE OF SERVICE: PROCEDURE: Transthoracic echocardiogram. FINDINGS: 1. The left ventricle shows evidence of mild left ventricular hypertrophy. Inflow characteristics consistent with diastolic dysfunction. Ejection fraction is normal to hyperdynamic with ejection fraction of 60% to 65%. 2. The left atrium is normal. 3. The aortic valve is normal. ECHOCARDIOGRAM REPORT [id number] LEONA SINGER 4. The mitral valve and tricuspid valve are normal. 5. The pericardium is normal. 6. The right-sided structures, right ventricle and right atrium are normal. CONCLUSION: This is a normal echocardiogram. TRANSINT:[id number] Voice Confirmation ID: [id number] DOCUMENT ID: [id number] VIRA BYRNES MD at 1147 CC: [id number] DICTATION DATE: 08/21/17815 NECK BAND SETTER: 08/21/17 08 DIS IN 08/21/17 [facility] [address] [place] [address]
[2017-08-19] MEDS ORDERED: LISINOPRIL5 MG PO (11:39)
[2017-08-19] MEDS ORDERED: LEXAPRO10 MG PO (11:39)
[2017-08-19] MEDS ORDERED: ADDERALL 20 MG20 M1 PO (11:40)
[2017-08-19] MEDS ORDERED: LOW DOSE ASPIRI81 M1 PO (11:40)
[2017-08-19 11:52] LABS: BASOPHILS 0.2 % (0-2); HEMATOCRIT 41.9 % (36.0-48.0); HEMOGLOBIN 13.9 g/dL (12-16); IMMATURE GRANULOCYTES 0.2 % (0-5); MCH 30.8 pg (26.0-34.0); MCHC 33.2 g/dL (31.0-37.0); MCV 92.9 fL (80.0-100.0); MEAN PLATELET VOLUME 9.4 fL (7.4-10.4); MONOCYTES 4.4 % (2-11); NEUTROPHILS 60.2 % (40-80); PLATELET COUNT 231 10x3/uL (130-400); RBC 4.51 10x6/uL (4.00-5.40); RDW 13.2 % (11.5-14.5); WBC 8.2 10x3/uL (4.8-10.8)
[2017-08-19 12:24] LABS: ALBUMIN 3.2 g/dL (3.4-5.0); ALKALINE PHOSPHATASE 66 U/L (46-116); ALT (SGPT) 18 U/L (10-68); BILIRUBIN - TOTAL 0.12 mg/dL (0.2-1.3); CALC OSMOLALITY 279 mosm/kg (275-300); CALCIUM 8.9 mg/dL (8.5-10.1); CARBON DIOXIDE 29.2 mmol/L (21.0-32.0); CHLORIDE - SERUM 105 mmol/L (98-107); CREATININE - SERUM 1.1 mg/dL (0.6-1.3); GLUCOSE 144 mg/dL (74-106); POTASSIUM - SERUM 3.9 mmol/L (3.5-5.1); PROTEIN - SERUM 6.8 g/dL (6.4-8.2); SODIUM 139 mmol/L (136-145); UREA NITROGEN 10 mg/dL (7-18); eGFR NON AFRICAN AMERICAN 56 mL/min (90-120)
[2017-08-19 12:27] LABS: APTT 31.9 SECONDS (22.8-39.4); INR 0.96 (0.85-1.17); PROTIME 12.4 SECONDS (11.6-15.0)
[2017-08-19 12:35] LABS: CKMB 0.8 U/L (0.0-3.6); CREATINE KINASE 62 UL (21-215); PRO BNP 50 pg/mL (0-125)
[2017-08-19 12:36] LABS: TROPONIN-I < 0.017 ng/mL (0.000-0.060)
[2017-08-19 17:50] LABS: T4 THYROXIN - FREE 1.03 ng/dL (0.76-1.46); THYROID STIMULATING HORMONE 1.12 uIU/mL (0.36-3.74)
[2017-08-19 18:41] LABS: CKMB 0.6 U/L (0.0-3.6); CREATINE KINASE 50 UL (21-215); TROPONIN-I < 0.017 ng/mL (0.000-0.060)
[2017-08-20 00:30] VITALS: BP 126/71
[2017-08-20 01:22] LABS: CKMB 0.8 U/L (0.0-3.6); CREATINE KINASE 49 UL (21-215); TROPONIN-I < 0.017 ng/mL (0.000-0.060)
[2017-08-20 04:30] VITALS: BP 124/56
[2017-08-20 06:07] LABS: BASOPHILS 0.3 % (0-2); EOSINOPHILS 5.7 % (0-7); HEMATOCRIT 38.5 % (36.0-48.0); HEMOGLOBIN 12.8 g/dL (12-16); IMMATURE GRANULOCYTES 0.2 % (0-5); MCH 30.5 pg (26.0-34.0); MCHC 33.2 g/dL (31.0-37.0); MCV 91.9 fL (80.0-100.0); MEAN PLATELET VOLUME 9.6 fL (7.4-10.4); MONOCYTES 8.1 % (2-11); NEUTROPHILS 49.7 % (40-80); PLATELET COUNT 205 10x3/uL (130-400); RBC 4.19 10x6/uL (4.00-5.40); RDW 13.4 % (11.5-14.5)
[2017-08-20 06:08] LABS: WBC 5.8 10x3/uL (4.8-10.8)
[2017-08-20 06:46] LABS: CARBON DIOXIDE 28.3 mmol/L (21.0-32.0); CHLORIDE - SERUM 106 mmol/L (98-107); CKMB 0.9 U/L (0.0-3.6); CREATINE KINASE 51 UL (21-215); POTASSIUM - SERUM 4.2 mmol/L (3.5-5.1); SODIUM 142 mmol/L (136-145); UREA NITROGEN 12 mg/dL (7-18)
[2017-08-20 06:47] LABS: CALC OSMOLALITY 282 mosm/kg (275-300); CREATININE - SERUM 0.8 mg/dL (0.6-1.3); GLUCOSE 94 mg/dL (74-106); TROPONIN-I < 0.017 ng/mL (0.000-0.060); eGFR NON AFRICAN AMERICAN 81 mL/min (90-120)
[2017-08-20 07:40] VITALS: BP 148/74
[2017-08-20 15:17] VITALS: BP 119/67
[2017-08-20 20:00] VITALS: BP 126/61
[2017-08-21] VITALS: BP 126/69
[2017-08-21 06:03] LABS: BASOPHILS 0.5 % (0-2); EOSINOPHILS 5.9 % (0-7); HEMATOCRIT 42.5 % (36.0-48.0); HEMOGLOBIN 14.1 g/dL (12-16); IMMATURE GRANULOCYTES 0.2 % (0-5); LYMPHOCYTES 37.9 % (15-50); MCH 30.5 pg (26.0-34.0); MCHC 33.2 g/dL (31.0-37.0); MEAN PLATELET VOLUME 9.6 fL (7.4-10.4); MONOCYTES 8.5 % (2-11); PLATELET COUNT 231 10x3/uL (130-400); RBC 4.62 10x6/uL (4.00-5.40); RDW 13.1 % (11.5-14.5); WBC 6.2 10x3/uL (4.8-10.8)
[2017-08-21 06:08] LABS: CALC OSMOLALITY 280 mosm/kg (275-300); CALCIUM 8.8 mg/dL (8.5-10.1); CARBON DIOXIDE 28.3 mmol/L (21.0-32.0); CHLORIDE - SERUM 105 mmol/L (98-107); CREATININE - SERUM 0.8 mg/dL (0.6-1.3); GLUCOSE 90 mg/dL (74-106); POTASSIUM - SERUM 4.2 mmol/L (3.5-5.1); SODIUM 141 mmol/L (136-145); UREA NITROGEN 13 mg/dL (7-18); eGFR NON AFRICAN AMERICAN 81 mL/min (90-120)
[2017-08-21 06:17] VITALS: BP 121/52
[2017-08-21 07:41] VITALS: BP 135/61
== END 2017-08-21 09:54 | disposition home or self-care (01) ==
LOC: D.ER 11:24 → OBSVTIME 13:21 → D.M2 13:21 → D.EDHOLD 13:21 → D.M2 14:09
PROVIDERS: Emergency Medicine; Family Medicine
DX: R07.9 Chest pain, unspecified (principal); I25.110 Atherosclerotic heart disease of native coronary artery with unstable angina pectoris; Z95.5 Presence of coronary angioplasty implant and graft; F17.200 Nicotine dependence, unspecified, uncomplicated; F90.9 Attention-deficit hyperactivity disorder, unspecified type; I10 Essential (primary) hypertension; F32.9 Major depressive disorder, single episode, unspecified; F15.99 Other stimulant use, unspecified with unspecified stimulant-induced disorder; E88.81 Metabolic syndrome and other insulin resistance

== ENCOUNTER 2018-03-19 09:23 | Emergency (ER) | payer BC ==
[~2018-03-19] VITALS: Ht 149.9 cm; Wt 60.9 kg
[~2018-03-19 09:23] MED LIST changes: +LEXAPRO10 MG PO; +LISINOPRIL5 MG PO; +LOW DOSE ASPIRI81 M1 PO
[2018-03-19 09:27] VITALS: Ht 149.9 cm; Wt 60.9 kg
[2018-03-19 11:23] LABS: ALBUMIN 3.3 g/dL (3.4-5.0); ALKALINE PHOSPHATASE 60 U/L (46-116); ALT (SGPT) 16 U/L (10-68); BILIRUBIN - TOTAL 0.27 mg/dL (0.2-1.3); CALC OSMOLALITY 276 mosm/kg (275-300); CALCIUM 9.4 mg/dL (8.5-10.1); CARBON DIOXIDE 27.6 mmol/L (21.0-32.0); CHLORIDE - SERUM 106 mmol/L (98-107); CREATININE - SERUM 0.8 mg/dL (0.6-1.3); GLUCOSE 81 mg/dL (74-106); POTASSIUM - SERUM 4.4 mmol/L (3.5-5.1); SODIUM 140 mmol/L (136-145); UREA NITROGEN 11 mg/dL (7-18); eGFR NON AFRICAN AMERICAN 80 mL/min (90-120)
[2018-03-19 11:27] LABS: TROPONIN-I < 0.017 ng/mL (0.000-0.060)
[2018-03-19] MEDS ORDERED: LISINOPRIL10 MG PO (12:13)
[2018-03-19 12:26] VITALS: BP 159/84
== END 2018-03-19 12:27 | disposition home or self-care (01) ==
LOC: D.ER 09:23
PROVIDERS: Emergency Medicine
DX: I10 Essential (primary) hypertension (principal); R00.2 Palpitations; R00.0 Tachycardia, unspecified

== ENCOUNTER 2018-06-01 11:49 | Emergency (ER) | payer BC ==
[~2018-06-01] VITALS: Ht 149.9 cm; Wt 64.5 kg
[~2018-06-01 11:49] MED LIST changes: +LISINOPRIL10 MG PO
[2018-06-01 11:53] VITALS: Ht 149.9 cm; Wt 64.5 kg
[2018-06-01] MEDS ORDERED: VOLTAREN75 MG PO (12:59)
[2018-06-01] MEDS ORDERED: BACLOFEN20 M1 PO (12:59)
[2018-06-01 13:42] VITALS: BP 123/68
== END 2018-06-01 13:43 | disposition home or self-care (01) ==
LOC: D.ER 11:49
DX: S43.401A Unspecified sprain of right shoulder joint, initial encounter (principal); V43.62XA Car passenger injured in collision with other type car in traffic accident, initial encounter; Y93.89 Activity, other specified; Y92.410 Unspecified street and highway as the place of occurrence of the external cause

== ENCOUNTER 2018-08-26 16:25 | Emergency (ER) | payer BC ==
[~2018-08-26] VITALS: Ht 149.9 cm; Wt 62.7 kg
[~2018-08-26 16:25] MED LIST changes: +BACLOFEN20 M1 PO; +PLAVIX75 MG PO; +VOLTAREN75 MG PO; +ZESTRIL10 MG PO
[2018-08-26 16:32] VITALS: Ht 149.9 cm; Wt 62.7 kg
[2018-08-26 16:55] LABS: BASOPHILS 0.3 % (0-2); HEMATOCRIT 39.9 % (36.0-48.0); HEMOGLOBIN 13.7 g/dL (12-16); IMMATURE GRANULOCYTES 0.2 % (0-5); LYMPHOCYTES 30.8 % (15-50); MCH 30.7 pg (26.0-34.0); MCHC 34.3 g/dL (31.0-37.0); MCV 89.5 fL (80.0-100.0); MEAN PLATELET VOLUME 9.2 fL (7.4-10.4); MONOCYTES 7.3 % (2-11); NEUTROPHILS 58.4 % (40-80); PLATELET COUNT 230 10x3/uL (130-400); RBC 4.46 10x6/uL (4.00-5.40); WBC 9.1 10x3/uL (4.8-10.8)
[2018-08-26 17:07] LABS: APTT 30.1 SECONDS (22.8-39.4); INR 0.92 (0.85-1.17); PROTIME 11.8 SECONDS (11.6-15.0)
[2018-08-26 17:30] LABS: ALBUMIN 3.8 g/dL (3.4-5.0); ALKALINE PHOSPHATASE 68 U/L (46-116); ALT (SGPT) 20 U/L (10-68); BILIRUBIN - TOTAL 0.26 mg/dL (0.2-1.3); CALC OSMOLALITY 280 mosm/kg (275-300); CALCIUM 9.3 mg/dL (8.5-10.1); CARBON DIOXIDE 27.1 mmol/L (21.0-32.0); CHLORIDE - SERUM 104 mmol/L (98-107); CREATININE - SERUM 0.9 mg/dL (0.6-1.3); GLUCOSE 95 mg/dL (74-106); POTASSIUM - SERUM 3.6 mmol/L (3.5-5.1); PROTEIN - SERUM 7.4 g/dL (6.4-8.2); SODIUM 141 mmol/L (136-145); UREA NITROGEN 12 mg/dL (7-18); eGFR NON AFRICAN AMERICAN 70 mL/min (90-120)
[2018-08-26 17:42] LABS: CKMB 1.5 U/L (0.0-3.6); CREATINE KINASE 171 UL (21-215); MAGNESIUM - SERUM 1.7 mg/dL (1.8-2.4); TROPONIN-I < 0.017 ng/mL (0.000-0.060)
[2018-08-26 20:33] LABS: CKMB 1.5 U/L (0.0-3.6); CREATINE KINASE 155 UL (21-215)
[2018-08-26 20:37] LABS: TROPONIN-I < 0.017 ng/mL (0.000-0.060)
[2018-08-26 21:04] VITALS: BP 118/64
== END 2018-08-26 21:04 | disposition home or self-care (01) ==
LOC: D.ER 16:25
PROVIDERS: Family Medicine
DX: I25.10 Atherosclerotic heart disease of native coronary artery without angina pectoris (principal); I10 Essential (primary) hypertension

== ENCOUNTER 2018-09-03 13:51 | Emergency (ER) | payer BC ==
[~2018-09-03] VITALS: Ht 149.9 cm; Wt 62.7 kg
[2018-09-03 13:58] VITALS: Ht 149.9 cm; Wt 62.7 kg
[2018-09-03 15:24] LABS: BASOPHILS 0.4 % (0-2); EOSINOPHILS 5.1 % (0-7); HEMATOCRIT 37.9 % (36.0-48.0); IMMATURE GRANULOCYTES 0.1 % (0-5); LYMPHOCYTES 29.9 % (15-50); MCH 30.9 pg (26.0-34.0); MCHC 34.3 g/dL (31.0-37.0); MEAN PLATELET VOLUME 9.3 fL (7.4-10.4); MONOCYTES 6.2 % (2-11); NEUTROPHILS 58.3 % (40-80); PLATELET COUNT 214 10x3/uL (130-400); RBC 4.21 10x6/uL (4.00-5.40); RDW 13.5 % (11.5-14.5); WBC 7.3 10x3/uL (4.8-10.8)
[2018-09-03 15:52] LABS: ALBUMIN 3.3 g/dL (3.4-5.0); BILIRUBIN - TOTAL 0.11 mg/dL (0.2-1.3); CALCIUM 8.9 mg/dL (8.5-10.1); CARBON DIOXIDE 30.7 mmol/L (21.0-32.0); CREATININE - SERUM 1.3 mg/dL (0.6-1.3); POTASSIUM - SERUM 4.7 mmol/L (3.5-5.1); PROTEIN - SERUM 6.5 g/dL (6.4-8.2)
[2018-09-03] MEDS ORDERED: IBUPROFEN800 MG PO (16:36)
[2018-09-03] MEDS ORDERED: ACETAMINOPHEN500 M1 PO (16:36)
[2018-09-03] MEDS ORDERED: CYCLOBENZAPRINE10 MG PO (16:36)
[2018-09-03 18:00] VITALS: BP 155/82
== END 2018-09-03 17:11 | disposition home or self-care (01) ==
LOC: D.ER 13:51
PROVIDERS: Family Medicine
DX: M79.631 Pain in right forearm (principal); R22.31 Localized swelling, mass and lump, right upper limb

== ENCOUNTER 2018-12-11 16:49 | Observation (INO) | payer BC ==
[~2018-12-11] VITALS: Ht 149.9 cm; Wt 65.0 kg
--- NOTE | ~2018-12-11 | HEMODYNAMI ---
PATIENT:LEONA SINGER MEDICAL RECORD: [id number] : 69 [id number] ADMISSION DATE: 12/11/18 Generatedon:12/12/201813:01 Patient name: LEONA SINGER Patient #: [id number] : 1965 Date of study: 12/12/2018 Page: Of Hemodynamic Procedure Report Patient Data Patient Demographics Procedure consent was obtained First Name: LEONA Gender: Female Last Name: LUCRECIA : 1965 Middle Initial: MOIZ Age: 53 year(s) Patient #: [id number] Race: SSN: [id number] Additional ID: [id number] Contact details Address: [address] [place] [address] State: [place] City: [place] Zip code: [address] Past Medical History Allergies: No known allergies Admission Admission Data Admission Date: 12/11/2018 Admission Time: 16:49 Arrival Date: 12/12/2018 Arrival Time: 0:00 Admit Source: Other Insurance Payor: Private Room #: D.2114 health insurance [facility] #: [id number] Height (in.): 59.06 BSA: 1.6 (m2) Height (cm.): 150 BMI: 28.89 (kg/m2) Weight (lbs.): 143.3 Weight (kg.): 65 Lab Results Lab Result Date: 12/12/2018 Lab Result Time: 0:00 Biochemistry Name Units Result Min Max BUN mg/dl 16 --(---*)-- 7 18 Creatinine l 0.8 -*(----)-- 21 215 Kinase eGFR ml/min 79.96535 *-(----)-- 90 120 NONAFRICAN CBC Name Units Result Min Max Hemoglobin g/dl 13.6 --(*---)-- 13.5 17.5 Procedure Procedure Types Cath Procedure Diagnostic Procedure LHC LHC w/Coronaries FFR/IVUS FFR Initial Sedation Charges Moderate Sedation up to 15 minutes PCI Procedure Coronary Stent Coronary Stent Initial Procedure Description Procedure Date Procedure Date: 12/12/2018 Procedure Start Time: 12:34 Procedure End Time: 12:56 Procedure Staff Name Function Jose Edwards RN Nurse Babatunde Taylor MD Performing Physician Cheli Mesa RT Monitor Rhiannon García RT Monitor Mell Rico RT Scrub Indication Chest pain Procedure Data Cath Procedure Fluoroscopy Diagnostic fluoroscopy Total fluoroscopy Time: 4.5 time: 4.5 min min Diagnostic fluoroscopy Total fluoroscopy dose: 611 dose: 611 mGy mGy Contrast Material Contrast Material Type Amount (ml) Isovue 300 118 Entry Location Entry Primary Successful Side Size Upsize Upsize Entry Closure Sin ccessful Closure Location (Fr) 1 (Fr) 2 (Fr) Remarks Device Remarks Radial Right 6 Fr Mechanical artery Short Compression Estimated blood loss: 10 ml Diagnostic catheters Device Type Used For End Catheter Placement DIAGNOSTIC Aynor 110cm 5 Procedure Fr catheter ([id number]) Procedure Complications No complications Procedure Medications Medication Administration Route Dosage Oxygen etCO2 Nasal cannula 2 l/min Lidocaine 2% added to field 20 Heparin Flush Bag added to field 2 bags (1000units/500ml NS) 0.9% NaCl I.V. 100 ml/hr Radial Cocktail I.A. 1 syringe (Verapamil 2mg/Nitro 400mcg/Heparin 1500units) Versed I.V. 2 mg Fentanyl I.V. 100 mcg Versed I.V. 2 mg Fentanyl I.V. 50 mcg Versed I.V. 1 mg Fentanyl I.V. 50 mcg Heparin Bolus I.V. 4000 units Hemodynamics Rest BSA: 1.6 (m2) HGB: 13.6 (g/dl) O2 Consumption: Estimated: 148.86 (ml/min) O2 Con sumption indexed: Estimated:93.04 (ml/min/m) Heart Rate: 58 (bpm) Snapshots Pre Cath Intra NCS Post Cath Vital Signs Time Heart Resp SPO2 etCO2 NIBP (mmHg) Rhythm Pain Sedation Rate (ipm) (%) (mmHg) Status Level (bpm) 12:02:26 58 24 97 31.4 150/89(131) NSR 0 (11) 10(A) , No pain 12:07:31 52 15 96 38.8 119/78(93) NSR 0 (11) 10(A) , No pain 12:11:33 53 12 95 29.8 132/81(97) NSR 0 (11) 10(A) , No pain 12:15:41 52 19 96 23.9 133/74(102) NSR 0 (11) 10(A) , No pain 12:19:48 51 16 95 27.6 130/76(98) NSR 0 (11) 10(A) , No pain 12:23:56 54 12 95 29.1 124/75(98) NSR 0 (11) 10(A) , No pain 12:28:02 54 13 94 29.8 124/70(103) NSR 0 (11) 10(A) , No pain 12:32:08 56 13 94 29.8 123/75(86) NSR 0 (11) 10(A) , No pain 12:36:14 52 12 95 23.1 119/75(87) NSR 0 (11) 9(A) , No pain 12:40:25 57 12 92 28.3 97/50(75) NSR 0 (11) 9(A) , No pain 12:45:18 58 38 94 34.3 112/67(100) NSR 0 (11) 9(A) , No pain 12:49:24 57 18 93 38.1 104/61(77) NSR 0 (11) 10(A) , No pain 12:53:32 54 25 95 39.6 109/52(74) NSR 0 (11) 10(A) , No pain Medications Time Medication Route Dose Verified Delivered Reason Not es Effectiveness by by 12:05:33 Oxygen etCO2 2 l/min Babatunde Garcia used for Nasal Brandon Edwards RN procedure cannula 12:05:41 Lidocaine 2% added 20ml Babatunde Fine used for to vial Brandon Taylor MD procedure field 12:05:49 Heparin Flush added 2 bags Babatunde Fine used for Bag to Brandon Taylor MD procedure (1000units/500ml field NS) 12:05:58 0.9% NaCl I.V. 100 Babatunde Garcia Per physician ml/hr Brandon Edwards RN 12:12:46 Radial Cocktail I.A. 1 Babatunde Fine for (Verapamil syringe Brandon Taylor MD vasodilation 2mg/Nitro 400mcg/Hepari 12:31:35 Versed I.V. 2 mg Babatunde Roie for sedation Brandon Edwards RN 12:31:41 Fentanyl I.V. 100 mcg Babatunde Garcia for sedation Brandon Edwards RN 12:36:52 Versed I.V. 2 mg Babatunde Buffie for sedation Brandon Edwards RN 12:36:57 Fentanyl I.V. 50 mcg Babatunde Roie for sedation Brandon Edwards RN 12:43:40 Versed I.V. 1 mg Babatunde Roie for sedation Brandon Edwards RN 12:43:45 Fentanyl I.V. 50 mcg Babatunde Roie for sedation Brandon Edwards RN 12:45:03 Heparin Bolus I.V. 4000 Babatundefaby Roie for michael ified units Brandon Edwards RN anticoagulation with dr taylor Procedure Log Time Note 11:43:06 Informed consent obtained and on chart 11:46:33 Diagnostic Cath Status : Urgent 11:47:45 Indication : Chest pain 11:47:54 Admit Source: Other 11:48:31 ACC Patient presents with Stable Angina CCS Anginal Class 0--No symptoms, no angina. 11:48:43 Procedure Status Urgent Heart Cath (IP). 11:48:48 Jose Edwards RN sent for patient. Start room use. 11:48:51 Time tracking: Regular hours (M-F 7:00 - 5:00) 11:48:58 Plan of Care:Hemodynamics will remain stable., Cardiac rhythm will remain stable., Comfort level will be maintained., Respiratory function will remain adequate., Patient/ family verbilizes understanding of procedure., Procedure tolerated without complication., Recovers from procedure without complications.. 11:49:43 Lab Result : eGFR NONAFRICAN 79.99139 ml/min 11:49:43 Lab Result : Hemoglobin 13.6 g/dl 11:49:43 Lab Result : BUN 16 mg/dl 11:49:43 Lab Result : Creatinine Kinase 0.8 l 11:50:12 Arrival Date: 12/12/2018 12:00:00 AM 11:50:48 Insurance Payor : Private health insurance 11:50:56 Patient Height : 59.06 inches 11:51:07 Patient Weight : 143.3 lbs 11:55:27 Patient received from Med II to [facility] Alert and oriented. Tansferred to table in Supine position. 12:01:15 Correct patient and procedure confirmed by team. 12:01:15 Warm blankets applied, and ad hugger turned on for patient comfort. 12:01:16 ECG and BP/O2 sat monitors applied to patient. 12:01:17 Vital chart was started 12:01:19 Baseline sample Acquired. 12:01:23 Rhythm: sinus bradycardia 12:01:24 Full Disclosure recording started 12::27 H&P Date Dictated: 12/12/2018 New H&P dictated by physician.. 12:01:28 Pre-op teaching completed and patient verbalized understanding. 12:01:28 Pre-procedure instructions explained to patient. 12:01:30 Family unavailable. 12:01:31 Patient NPO since Midnight. 12:01:42 Patient allergic to No known allergies 12:01:44 Is the patient allergic to Iodine/contrast media? No. 12:01:46 Is patient on blood thinner?Yes 12:01:48 ACC The patient was administered the following blood thiners within the last 24 hours: ACCPlavix 12:01:50 Patient diabetic? No. 12:01:51 Patient not . Patient has had hysterectomy. 12:01:53 Previous problem with sedation/anesthesia? No ? 12:01:54 Snore? Yes 12:01:58 Sleep apnea? No 12:02:00 Deviated septum? No 12:02:01 Sticks out tongue? Yes 12:02:01 Opens mouth fully? Yes 12:02:03 Airway obstruction? No ? 12:02:06 Dentures? Yes IN TIGHT 12:02:09 Modified Daryl's test Ulnar < 7 seconds 12:02:11 Patient pain scale 0/10 ?. 12:02:15 IV patent on arrival in left antecubital with 0.9% NaCl at [facility]. 12:02:17 Lab results completed and on chart. 12:02:20 Right Radial & Right Groin area was prepped with chlora-prep and draped in sterile fashion 12:02:21 Alarms reviewed by R. N. 12:02:22 Sharps counted by scrub and verified by R.N. 12:02:25 Use device set Radial Dx or PCI 12:02:26 ACIST Syringe (64196) opened to sterile field. 12:02:27 ACIST Manifold (25062) opened to sterile field. 12:02: ACIST Hand Control (98155) opened to sterile field. 12:02: Bag Decanter () opened to sterile field. 12:02:28 Tegaderm 4 x 4 (1626W) opened to sterile field. 12:02:29 MBrace Wrist Support ([id number]) opened to sterile field. 12:02:29 Medline Cath Pack ([id number]) opened to sterile field. 12:02:30 EMERALD Guide Wire (098-459) opened to sterile field. 12:02:31 SHEATH 6FR RAIN (0036205) opened to sterile field. 12:05:33 Oxygen 2 l/min etCO2 Nasal cannula was administered by Jose Edwards RN; used for procedure; Verbal order read back and verified. 12:05:41 Lidocaine 2% 20ml vial added to field was administered by Babatunde Taylor MD; used for procedure; Verbal order read back and verified. 12:05:49 Heparin Flush Bag (1000units/500ml NS) 2 bags added to field was administered by Babatunde Taylor MD; used for procedure; Verbal order read back and verified. 12:05:58 0.9% NaCl 100 ml/hr I.V. was administered by Jose Edwards RN; Per physician; Verbal order read back and verified. 12:12:46 Radial Cocktail (Verapamil 2mg/Nitro 400mcg/Heparin 1500units) 1 syringe I.A. was administered by Babatunde Taylor MD; for vasodilation; Verbal order read back and verified. 12:13:53 Zero performed for pressure channel P1 12:16:04 ACCPatient has been prescribed/administered the following anti-anginal medication within the last 2 weeks: None 12::29 Physician arrived 12:30:30 --------ALL STOP TIME OUT------ 12:30:31 Final Timeout: patient, procedure, and site verified with staff and physician. All members of the team are in agreement. 12:30:34 Right Radial & Right Groin site verified by team. 12:30:44 Fire Safety Assessment: A--An alcohol-based skin anteseptic being used preoperatively., C--Open oxygen or nitrous oxide is being used., D--An ESU, laser, or fiber-optic light is being used. 12:31:00 Physical assessment completed. ASA score P 2 - A patient with mild systemic disease as per Babatunde Taylor MD. 12:31:08 2) 60-89 Mildly reduced kidney function, and other findings (as for stage 1) point to kidney disease. 12:31:14 Maximum allowable contrast dose (3.7 X eGFR X 0.75)222 ml. 12:31:21 Sedation plan: IV Moderate Sedation Medication:Versed, Fentanyl 12:31:35 Versed 2 mg I.V. was administered by Jose Edwards RN; for sedation; Verbal order read back and verified. 12:31:41 Fentanyl 100 mcg I.V. was administered by Jose Edwards RN; for sedation; Verbal order read back and verified. 12:34:01 Procedure started. 12:34:27 Local anesthetic to right radial artery with Lidocaine 2% by Babatunde Taylor MD.INITIAL ACCESS ONLY 12:35:43 A 6 Fr Short sheath was inserted into the Right Radial artery 12:35:58 A DIAGNOSTIC Aynor 110cm 5 Fr catheter ([id number]) was advanced over the wire and used for Procedure. 12:36:52 Versed 2 mg I.V. was administered by Jose Edwards RN; for sedation; Verbal order read back and verified. 12:36:57 Fentanyl 50 mcg I.V. was administered by Jose Edwards RN; for sedation; Verbal order read back and verified. 12:37:12 LV gram done using FERNANDES 12:37:17 Injector settings: Ml/sec: 5, Volume: 15, 12:37:36 EF : 60 % 12:37:43 LCA angiography performed. 12:39:14 RCA angiography performed. 12:39:22 Catheter exchanged over wire. 12:39:31 ACCDominant side:Right 12:39:36 GUIDE 5FR EBU 3.0 catheter ([id number]) opened to sterile field. 12:40:58 5 Fr EBU3 guide catheter was inserted over the wire 12:42:35 INFLATOR Merit BasixCompak (UZ2321) opened to sterile field. 12:42:37 [place] SpanDeXrata Plus pressure wire (45557T) opened to sterile field. 12:43:40 Versed 1 mg I.V. was administered by Jose Edwards RN; for sedation; Verbal order read back and verified. 12:43:45 Fentanyl 50 mcg I.V. was administered by Jose Edwards RN; for sedation; Verbal order read back and verified. 12:44:50 FFR/IFR wire advanced. 12:45:03 Heparin Bolus 4000 units I.V. was administered by Jose Edwards RN; for anticoagulation; verified with dr taylor Verbal order read back and verified. 12:45:25 Wire advanced across lesion. 12:45:42 mLAD lesion measured at .81 with IFR 12:46:56 Pre PCI Site: [place] mLAD has 80% stenosis. 12:48:22 Place stent Inflation Number: 1 A MONTRELL RX 2.0 x 30 stent ([id number]) was prepped and advanced across the Mid LAD . The stent was deployed at 15 [place] for 0:10 (min:sec) . 12:48:36 Inflation number: 2 The stent balloon was then re-inflated across the Mid LAD to 21 [place] for 0:10 (min:sec) . 12:49:05 Stent catheter was removed intact over wire. 12:49:10 Wire removed. 12:49:11 Guide catheter removed. 12:49:28 Procedure ended.(Physican Out) 12:49:44 ZEPHYR REGULAR TR BAND (131056) opened to sterile field. 12:51:03 Fluoroscopy time 04.50 minutes. 12:51:12 Fluoroscopy dose: 611 mGy 12:51:12 Flurop Dose total: 611 12:51:20 Dose Area Product 92254 mGy/cm. 12:51:26 Contrast amount:Isovue 300 118ml. 12:51:29 Maximum allowable dose exceeded? No. 12:51:31 Sharps counted by scrub and verified by R.N. 12:51:45 Sheath removed intact; hemostasis achieved with Mechanical Compression to the Right Radial artery. 12:51:56 [place] band inflated with 9cc of air. 12:51:58 Insertion/operative site no bleeding no hematoma. 12:52:01 Post Procedure Pulses reassessed and unchanged 12:52:08 Post-procedure physical assessment completed. ASA score P 2 - A patient with mild systemic disease as per Babatunde Taylor MD. 12:52:14 Post procedure rhythm: unchanged. 12:52:17 Estimated blood loss: 10 ml 12:52:20 Post procedure instruction explained to patient.Patient verbalizes understanding. 12:52:21 Patient needs reinforcement of post procedure teaching. 12:53:46 Procedure type changed to Cath procedure, Diagnostic procedure, C, [facility] w/Coronaries, FFR/IVUS, FFR Initial, Sedation Charges, Moderate Sedation up to 15 minutes, PCI procedure, Coronary Stent, Coronary Stent Initial 12:54:43 Procedure and supply charges have been captured, reviewed, submitted and are correct. 12:54:58 Procedure Complication : No complications 12:55:02 Vital chart was stopped 12:55:09 [facility] Findings: MVD- PCI performed (see procedure note) 12:55:17 Operative report dictated upon procedure completion. 12:55:18 See physician's report for complete and final results. 12:55:22 Report given to [facility] II. 12:56:09 Patient transfered to Med II with Bed. 12:56:15 Full Disclosure recording stopped 12:56:15 Procedure ended. 12:56:27 ACC-PCI Only Patient was given prescriptions, or instructed by Babatunde Taylor MD to start/continue the following medications upon discharge: Plavix 12:56:29 End room use (Document Last) 13:01:23 ACT drawn and resulted at 322 seconds. (normal therapeutic range 180-240 seconds). Intervention Summary Intervention Notes Time ActionType Lesion and Equipment Used Action# Pressure Duration Attributes 12:48:22 Place stent Mid LAD MONTRELL RX 2.0 x 1 15 00:10 30 stent ([id number]) 12:48:36 Reinflate Mid LAD MONTRELL RX 2.0 x 2 21 00:10 stent 30 stent balloon ([id number]) Device Usage Item Name Manufacture Quantity Catalog Hospital Part Current Minimal Lot# / Number Charge Number Stock Stock Serial# Code ACIST Syringe Acist 1 55411 763669 490675 654932 20 (88140) Medical Systems Inc Bag Decanter Microtek 1 953316 75013 768377 5 () Medical Inc. ACIST Hand Acist 1 13131 876103 224799 693372 5 Control Medical (60428) Systems Inc ACIST Manifold Acist 1 76046 899082 374685 558832 5 (41393) Medical Systems Inc Tegaderm 4 x 4 3M 1 1626W 126053 211399 273252 5 (1626W) Medline Cath Medline 1 [id number] 632943 32111 149013 5 Pack ([id number]) MBrace Wrist Advanced 1 140-0250-00 053573 71876 592842 5 Support Vascular ([id number]) Dynamics EMERALD Guide Cardinal 1 502-455 911152 526517 513451 5 Wire (502-455) Health SHEATH 6FR Cardinal 1 4862032 095828 6037542 526843 5 RAIN (3596219) Health DIAGNOSTIC Terumo 1 40-5013 713732 289732 696855 5 Aynor 110cm 5 Fr catheter (110586) GUIDE 5FR EBU Medtronic 1 [id number] 572498 888336 173443 1 3.0 catheter ([id number]) INFLATOR Merit Merit 1 NT5921 342969 038792 261539 15 BasixCompak Medical (ZV4390) [place] 1 10205R 917349 866366079 264672 5 Verrata Plus pressure wire (47226J) MONTRELL RX 2.0 x Medtronic 1 [id number] 124160 5082252 071995 5 [id number] 30 stent ([id number]) ZEPHYR REGULAR Cardinal 1 958436 377229 0796036 140722 5 TR BAND Health (086708) Signature Audit [place] Stage Time Signature Unsigned Intra-Procedure 12/12/2018 Cheli 12:57:39 PM Moshe RT(R) (CV) Intra-Procedure 12/12/2018 Jose Edwards RN 12:58:27 PM Intra-Procedure 12/12/2018 Babatunde Taylor MD 12:58:58 PM 12/12/2018 1:01:03 PM Intra-Procedure 12/12/2018 Babatunde Taylor 1:01:52 PM [place] [id number] [place] [id number]
[~2018-12-11 16:49] MED LIST changes: +ACETAMINOPHEN500 M1 PO; +CYCLOBENZAPRINE10 MG PO; +IBUPROFEN800 MG PO
[2018-12-11 17:21] LABS: BASOPHILS 0.4 % (0-2); EOSINOPHILS 1.9 % (0-7); HEMATOCRIT 43.9 % (36.0-48.0); IMMATURE GRANULOCYTES 0.3 % (0-5); LYMPHOCYTES 34.6 % (15-50); MCH 31.3 pg (26.0-34.0); MCHC 34.2 g/dL (31.0-37.0); MCV 91.6 fL (80.0-100.0); MEAN PLATELET VOLUME 9.2 fL (7.4-10.4); MONOCYTES 7.2 % (2-11); NEUTROPHILS 55.6 % (40-80); PLATELET COUNT 248 10x3/uL (130-400); RBC 4.79 10x6/uL (4.00-5.40); RDW 12.8 % (11.5-14.5); WBC 7.9 10x3/uL (4.8-10.8)
[2018-12-11 18:01] VITALS: BP 127/83; BMI 28.9
[2018-12-11 18:41] VITALS: BP 127/83
[2018-12-11 19:03] LABS: ALBUMIN 3.8 g/dL (3.4-5.0); ALKALINE PHOSPHATASE 77 U/L (46-116); ALT (SGPT) 19 U/L (10-68); BILIRUBIN - TOTAL 0.28 mg/dL (0.2-1.3); CALC OSMOLALITY 287 mosm/kg (275-300); CALCIUM 9.3 mg/dL (8.5-10.1); CHLORIDE - SERUM 106 mmol/L (98-107); CREATININE - SERUM 0.8 mg/dL (0.6-1.3); GLUCOSE 99 mg/dL (74-106); POTASSIUM - SERUM 3.9 mmol/L (3.5-5.1); PROTEIN - SERUM 7.6 g/dL (6.4-8.2); SODIUM 145 mmol/L (136-145); UREA NITROGEN 10 mg/dL (7-18); eGFR NON AFRICAN AMERICAN 80 mL/min (90-120)
[2018-12-11 19:09] LABS: CREATINE KINASE 88 UL (21-215)
[2018-12-11 19:13] LABS: TROPONIN-I < 0.017 ng/mL (0.000-0.060)
[2018-12-11 20:00] VITALS: BP 144/66
[2018-12-12] VITALS: BP 102/58
[2018-12-12 00:01] LABS: CREATINE KINASE 74 UL (21-215)
[2018-12-12 00:07] LABS: TROPONIN-I < 0.017 ng/mL (0.000-0.060)
[2018-12-12 04:00] VITALS: BP 135/65
[2018-12-12 05:10] LABS: BASOPHILS 0.3 % (0-2); HEMATOCRIT 40.9 % (36.0-48.0); HEMOGLOBIN 13.6 g/dL (12-16); IMMATURE GRANULOCYTES 0.1 % (0-5); LYMPHOCYTES 33.1 % (15-50); MCH 30.8 pg (26.0-34.0); MCHC 33.3 g/dL (31.0-37.0); MCV 92.7 fL (80.0-100.0); MEAN PLATELET VOLUME 9.2 fL (7.4-10.4); MONOCYTES 8.6 % (2-11); NEUTROPHILS 54.9 % (40-80); PLATELET COUNT 223 10x3/uL (130-400); RBC 4.41 10x6/uL (4.00-5.40); WBC 7.2 10x3/uL (4.8-10.8)
[2018-12-12 05:16] LABS: APTT 30.8 SECONDS (22.8-39.4); INR 0.99 (0.85-1.17); PROTIME 12.6 SECONDS (11.6-15.0)
[2018-12-12 05:29] LABS: CALCIUM 8.5 mg/dL (8.5-10.1); CARBON DIOXIDE 30.9 mmol/L (21.0-32.0); CHLORIDE - SERUM 109 mmol/L (98-107); CKMB 0.8 U/L (0.0-3.6); CREATINE KINASE 67 UL (21-215); CREATININE - SERUM 0.8 mg/dL (0.6-1.3); GLUCOSE 89 mg/dL (74-106); MAGNESIUM - SERUM 1.8 mg/dL (1.8-2.4); PHOSPHOROUS 4.2 mg/dL (2.5-4.9); SODIUM 145 mmol/L (136-145); THYROID STIMULATING HORMONE 1.49 uIU/mL (0.36-3.74); TROPONIN-I < 0.017 ng/mL (0.000-0.060); eGFR NON AFRICAN AMERICAN 80 mL/min (90-120)
[2018-12-12 05:39] LABS: CALC OSMOLALITY 288 mosm/kg (275-300); UREA NITROGEN 16 mg/dL (7-18)
--- NOTE | 2018-12-12 07:15 | NUR ---
RECEIVED PT IN BED AAOX4 RESP UNLABORED SKIN W/D COLOR WNL DENIES ANY NEEDS OR DISCOMFORT NAD NOTED
[2018-12-12 08:15] VITALS: Ht 149.9 cm; Wt 65.0 kg
--- NOTE | 2018-12-12 09:42 | NUR ---
REFUSES SCDs UP AD TALON
[2018-12-12 10:38] VITALS: BP 136/53
--- NOTE | 2018-12-12 13:31 | OP ---
PATIENT NAME: LEONA SINGER MEDICAL RECORD: [id number] :69 LOCATION:D.M2 D.2114 ADMISSION DATE:12/11/18 SURGEON: LAURIE ACOSTA MD DATE OF OPERATION: 12/12/2018 PROCEDURES: 1. PTCA stent LAD. 2. Left heart catheterization. 3. Selective coronary angiography. 4. Left ventriculogram. 5. IFR. INDICATION: Unstable angina and coronary artery disease. PROCEDURE IN DETAIL: After informed consent was obtained and after a detailed description of risks, benefits as well as alternative therapies, the patient elected to proceed with angiogram and angioplasty. The right radial area was prepped and draped in normal sterile fashion. Right radial artery was cannulated via modified Seldinger technique with placement of 6-[place] sheath. All catheters exchanged through this sheath. FINDINGS: Left ventriculogram was performed in standard 30-degree FERNANDES view, reveals good cardiac wall motion, ejection fraction estimated 60%. SELECTIVE CORONARY ANGIOGRAPHY: 1. Left main is with no significant angiographic disease. 2. Left anterior descending has previously placed stents, these are widely patent; however, there is 80% stenosis in the LAD after the previously placed stents and IFR is abnormal at 0.81. 3. Left circumflex has previously placed stents, these are widely patent with no significant restenosis. No disease elsewise throughout the left circumflex or its branches. 4. The right coronary artery has previously placed stents. These are widely patent with no significant restenosis. No disease elsewise throughout the RCA or its branches. PTCA STENT OF THE LAD: The stent used was a 2.0 x 30 mm [place]. Result was 0% residual stenosis. OVERALL IMPRESSION: Successful PTCA stent of the LAD going from 80% initial stenosis with an abnormal IFR to 0% residual. TRANSINT:[id number] Voice Confirmation ID: [id number] DOCUMENT ID: [id number] LAURIE ACOSTA MD at 1331 CC: [id number] DICTATION DATE: 12/12/18 1255 BOX ORDER PERSON: 12/12/18 1312 ADM IN [facility] [address] [place] [address]
--- NOTE | 2018-12-12 13:31 | CN ---
PATIENT NAME:LEONA ALVAREZ MEDICAL RECORD: [id number] : 69 LOCATION:D. D.2114 ADMIT DATE: 12/11/18 ACCOUNT: [id number] CONSULTING PHYSICIAN: LAURIE ACOSTA MD REFERRING PHYSICIAN: JAMIE RAPP DO DATE OF CONSULTATION: 12/12/2018 DIAGNOSES: 1. Unstable angina class IV. 2. Coronary artery disease. 3. Previous percutaneous transluminal coronary angioplasty stent multivessel. 4. Family history of coronary artery disease. 5. Hyperlipidemia. 6. Abnormal ECG. HISTORY OF PRESENT ILLNESS: Mrs. Alvarez presents with increasing chest pain. She has a history of multivessel PTCA stent, the last being in June 04-vessels. She does have T-wave inversions anteriorly on her EKG. Her chest pain has been increasing. She is having episodes of rest pain. It is a pressure sensation under her left breast. It is very similar to that of her previous angina. There is radiation to her jaw. She as well had associated shortness of breath and dyspnea on exertion that has been going on approximately 2 weeks, but markedly escalating in the past week. She had severe chest pain the night before admission to the point of being up all night and crying with the pain. She does continue to have episodes of the pain even today. At this time, her heart rates in the 50s and 60s and her systolic blood pressure is at approximately 100-110. She does remain on aspirin and Plavix. PHYSICAL EXAMINATION: CONSTITUTIONAL/GENERAL APPEARANCE: Well nourished, well developed, appears stated age. EYES: Lids and conjunctivae noninjected. No discharge. No pallor. ENT: Lips within normal limit. No cyanosis. No pallor. NECK: Carotid arteries, bilateral normal upstroke. No bruits. No thrills. No jugular venous pressure or distention. CERVICAL LYMPH NODES: Nontender. Nonenlarged. THYROID: Not enlarged. No nodules. CARDIOVASCULAR: Precordial exam, nondisplaced. No heaves or pericardial thrills. Rate and rhythm, regular. Heart sounds, normal S1, normal S2. No S3, no gallop, no rub. Systolic murmur, not heard. Diastolic murmur, not heard. RESPIRATORY: Respiratory effort, unlabored. Normal curvature. No thoracic deformity. No chest wall tenderness. Percussion, resonant. Auscultation, clear. No wheezes, no rales, no rhonchi. ABDOMEN: Soft, nondistended, nontender. No abdominal pain, no vomiting and normal appetite. MUSCULOSKELETAL: No joint tenderness, normal gait, normal tone. SKIN: Warm and dry. OVERALL IMPRESSION: Chest pain in an escalating unstable fashion with abnormal ECG suggestive of ischemia in a patient with a past history of multivessel PTCA stent. At this time, we will add a long-acting nitrate, but due to the unstable nature and progression of the pain, abnormal ECG and continued pain, we will proceed with coronary angiography. Further care depends upon the findings of the angiography. CONSULT REPORT [id number] LEONA ALVAREZ TRANSINT:[id number] Voice Confirmation ID: [id number] DOCUMENT ID: [id number] LAURIE ACOSTA MD at 1331 CC: [id number] DICTATION DATE: 12/12/18 0817 AUTOMOBILE SERVICE STATION MECHANIC: 12/12/18 1042 ADM IN [place] [id number] [place] [address]
[2018-12-12] MEDS ORDERED: PRAVACHOL20 MG PO (13:57)
--- NOTE | 2018-12-12 16:29 | NUR ---
NO FLU SHOT GIVEN UPON DISCHARGE PER ADMISSION PATIENT STATES TO HAVING RECEIVED ONE THIS YEAR.
--- NOTE | 2018-12-12 17:17 | MORECARE ---
CASE MANAGEMENT DISCHARGE SUMMARY PATIENT: LEONA SINGER UNIT: [id number] ADM DATE: 12/11/18 AGE: 53 : 69 SEX: F ROOM/BED: D.2114 AUTHOR: NANCY ARGUETA PHYSICIAN: REFERRING PHYSICIAN: JAMIE RAPP DO DATE OF SERVICE: 12/12/18 Discharge Plan Patient Name: LEONA SINGER [facility] [facility] 1965 Planned Disposition: Home Anticipated Discharge Date: 12/12/18 Discharge Date: Expected LOS: 1 Initial Reviewer: [email or web address] Initial Review Date: 12/12/2018 Generated: 12/12/18 6:17 pm Patient Name: LEONA SINGER Page [phone] at 1717 All edits/amendments must be made on the electronic document DICTATION DATE: 12/12/181716 SLICING MACHINE OPERATOR/TENDER: FREDERICK 12/12/181716 RPT#: [id number] DC DATE: STATUS: ADM IN [facility] [address] [place] [address] END OF REPORT
[2018-12-12 17:40] VITALS: BP 134/70
--- NOTE | 2018-12-16 11:10 | EC ---
PATIENT:LEONA SINGER DATE OF SERVICE: 12/11/18 SEX: F MEDICAL RECORD: [id number] DATE OF : [birth year] LOCATION:D. D.211 AGE OF PATIENT: 53 ADMISSION DATE: 12/11/18 REFERRING PHYSICIAN: INTERPRETING PHYSICIAN: LAURIE TAYLOR MD ECHOCARDIOGRAM REPORT ECHO CHARGES 4 ECHO COMPLETE Date: 12/12/18 CLINICAL DIAGNOSIS: UNSTABLE ANGINA ECHOCARDIOGRAPHIC MEASUREMENTS (adult normal given) AC root (d.<3.7cm) 2.7 cm LV Septum d (<1.2 cm> 1.1 cm Valve Excursion 2.0 cm LV Septum (systole) 1.6 cm Left Atria (s.<4.0cm> 3.5 cm LVPW d(<1.2cm) 1.3 cm RV (d.<2.3cm) 2.1 cm LVPW (sytole) 1.7 cm LV diastole(<5.6CM) 5.2 cm MV E-F(>70mm/sec) cm LV systole 3.3 cm LVOT Diameter 2.0 cm MV exc.(>10mm) cm Est.ejection fraction (50-75%) % DOPPLER: LVIT cm/sec A 86.0 cm/sec E 87.0 cm/sec LA cm/sec RVSP 23.2 mmHg LVOT 86.0 cm/sec AOP1/2T m/s Asc. Ao 147 cm/sec RVOT 53.0 cm/sec RA cm/sec PA 69.0 cm/sec AV Gradient Peak 8.6 mmHg AV Mean 4.0 mmHg AV Area 1.6 cm MV Gradient Peak 6.1 mmHg MV Mean 2.1 mmHg MV Area cm COMMENTS: Staff Mechanical Engineer: 1 HÉCTOR GILBERTOE Tassel Making Machine Operator: 1 Dr. Taylor TAPE# PACS Pericardial Effusion N DATE OF SERVICE: PROCEDURE: Echocardiogram. FINDINGS: 1. Left ventricular chamber size is within normal limits. Left ventricular systolic function is normal. Overall ejection fraction estimated at 60%. 2. Left atrium, right atrium, and right ventricular chamber sizes are within normal limits. 3. Valvular structures have normal structure and motion. ECHOCARDIOGRAM REPORT [id number] LEONA SINGER 4. Doppler interrogation only reveals trace mitral regurgitation, no other valvular insufficiency or stenosis. Pulmonary systolic pressure is estimated at 23 mmHg. 5. No evidence of pericardial effusion or left ventricular thrombus. TRANSINT:[id number] Voice Confirmation ID: [id number] DOCUMENT ID: [id number] LAURIE TAYLOR MD at 1110 CC: [id number] DICTATION DATE: 12/13/18 0944 COMMUNITY LEADER: 12/13/18 1050 DIS IN 12/12/18 [facility] [address] [id number]
== END 2018-12-12 18:55 | disposition home or self-care (01) ==
LOC: D.M2 16:49 → OBSVTIME 16:49 → D.M2 16:49
PROVIDERS: Family Medicine; ADMIT Family Medicine; ATTEND Family Medicine
DX: I25.110 Atherosclerotic heart disease of native coronary artery with unstable angina pectoris (principal); R94.31 Abnormal electrocardiogram [ECG] [EKG]; E78.5 Hyperlipidemia, unspecified; F41.8 Other specified anxiety disorders; Z82.49 Family history of ischemic heart disease and other diseases of the circulatory system

== ENCOUNTER 2018-12-20 10:48 | Emergency (ER) | payer BC ==
[~2018-12-20] VITALS: Ht 149.9 cm; Wt 63.6 kg
[~2018-12-20 10:48] MED LIST changes: +PRAVACHOL20 MG PO
[2018-12-20] MEDS ORDERED: LISINOPRIL10 MG PO (11:03)
[2018-12-20 11:27] LABS: BASOPHILS 0.5 % (0-2); EOSINOPHILS 2.8 % (0-7); HEMATOCRIT 43.1 % (36.0-48.0); HEMOGLOBIN 14.5 g/dL (12-16); IMMATURE GRANULOCYTES 0.2 % (0-5); LYMPHOCYTES 33.3 % (15-50); MCH 30.9 pg (26.0-34.0); MCHC 33.6 g/dL (31.0-37.0); MCV 91.7 fL (80.0-100.0); MEAN PLATELET VOLUME 9.3 fL (7.4-10.4); MONOCYTES 8.9 % (2-11); NEUTROPHILS 54.3 % (40-80); PLATELET COUNT 265 10x3/uL (130-400); RDW 12.7 % (11.5-14.5); WBC 6.1 10x3/uL (4.8-10.8)
[2018-12-20 11:38] LABS: CALC OSMOLALITY 282 mosm/kg (275-300); CALCIUM 9.5 mg/dL (8.5-10.1); CARBON DIOXIDE 32.1 mmol/L (21.0-32.0); CHLORIDE - SERUM 105 mmol/L (98-107); CREATININE - SERUM 0.8 mg/dL (0.6-1.3); GLUCOSE 97 mg/dL (74-106); POTASSIUM - SERUM 3.6 mmol/L (3.5-5.1); SODIUM 142 mmol/L (136-145); UREA NITROGEN 13 mg/dL (7-18); eGFR NON AFRICAN AMERICAN 80 mL/min (90-120)
[2018-12-20 11:41] LABS: APTT 38.1 SECONDS (22.8-39.4); INR 0.94 (0.85-1.17); PROTIME 12.1 SECONDS (11.6-15.0)
[2018-12-20 11:55] LABS: ALBUMIN 3.7 g/dL (3.4-5.0); ALKALINE PHOSPHATASE 79 U/L (46-116); ALT (SGPT) 19 U/L (10-68); CKMB 0.8 U/L (0.0-3.6); CREATINE KINASE 80 UL (21-215); MAGNESIUM - SERUM 1.9 mg/dL (1.8-2.4); PROTEIN - SERUM 7.7 g/dL (6.4-8.2); TROPONIN-I < 0.017 ng/mL (0.000-0.060)
[2018-12-20 12:35] VITALS: Ht 149.9 cm; Wt 63.6 kg
[2018-12-20 13:24] VITALS: BP 136/76
--- NOTE | 2018-12-20 13:29 | CN ---
PATIENT NAME:LEONA ALVAREZ MEDICAL RECORD: [id number] : 69 LOCATION:D.ER ADMIT DATE: ACCOUNT: [id number] CONSULTING PHYSICIAN: LAURIE ACOSTA MD REFERRING PHYSICIAN: SHAHIDA SHIPLEY MD DATE OF CONSULTATION: 12/20/2018 DIAGNOSES: 1. Chest pain. 2. GERD. 3. Coronary artery disease. 4. Recent PTCA stent. 5. Hypertension. 6. Hyperlipidemia. HISTORY OF PRESENT ILLNESS: Mrs. Alvarez presents with chest pain, she thinks it is indigestion. She is status post PTCA stent last week and was started on Plavix last week. She is not on any stomach medication. She does have a history of GERD for which is untreated. The another complaint she has is that her blood pressure has been going up. She had systolics in the 170s to 180s the last 2 days. She is on lisinopril for blood pressure only. She is on Pravachol for hyperlipidemia with no problems. Reviewed her last cath film, she had PTCA stent of the LAD. There were no other blockages in need of attention. Her EKG is normal. Troponin is normal. PHYSICAL EXAMINATION: CONSTITUTIONAL/GENERAL APPEARANCE: Well nourished, well developed, appears stated age. EYES: Lids and conjunctivae noninjected. No discharge. No pallor. ENT: Lips within normal limit. No cyanosis. No pallor. NECK: Carotid arteries, bilateral normal upstroke. No bruits. No thrills. No jugular venous pressure or distention. CERVICAL LYMPH NODES: Nontender. Nonenlarged. THYROID: Not enlarged. No nodules. CARDIOVASCULAR: Precordial exam, nondisplaced. No heaves or pericardial thrills. Rate and rhythm, regular. Heart sounds, normal S1, normal S2. No S3, no gallop, no rub. Systolic murmur, not heard. Diastolic murmur, not heard. RESPIRATORY: Respiratory effort, unlabored. Normal curvature. No thoracic deformity. No chest wall tenderness. Percussion, resonant. Auscultation, clear. No wheezes, no rales, no rhonchi. ABDOMEN: Soft, nondistended, nontender. No abdominal pain, no vomiting and normal appetite. MUSCULOSKELETAL: No joint tenderness, normal gait, normal tone. SKIN: Warm and dry. OVERALL IMPRESSION: Chest discomfort compatible with GERD, most likely she does have GERD. I have asked her to get [id number] Nexium or Pepcid and start this from standpoint of the blood pressure not be well controlled. We will discontinue the lisinopril, put her on amlodipine 10 mg every day. She will keep her follow up with [facility]. TRANSINT:[id number] Voice Confirmation ID: [id number] DOCUMENT ID: [id number] CONSULT REPORT [id number] LEONA ALVAREZ, LAURIE PIÑA at 1329 CC: [id number] DICTATION DATE: 12/20/18 1234 DRYWALL FOREMAN: 12/20/18 1257 DEP ER 12/20/18 [id number] [place] [address]
== END 2018-12-20 13:15 | disposition home or self-care (01) ==
LOC: D.ER 10:48
PROVIDERS: Family Medicine
DX: I25.10 Atherosclerotic heart disease of native coronary artery without angina pectoris (principal)

== ENCOUNTER → 2019-01-02 15:48 | Outpatient (CLI) | payer BC ==
[2018-12-20 12:35] VITALS: BMI 28.3
[~2019-01-02 15:48] MED LIST changes: +CRESTOR20 MG PO; +ISOSORBIDE MONO30 M1 PO; +NORVASC10 MG PO
== END | disposition home or self-care (01) ==
LOC: D.CT 15:48
PROVIDERS: ATTEND Family Medicine
DX: I65.29 Occlusion and stenosis of unspecified carotid artery (principal)

== ENCOUNTER 2019-01-26 15:48 | Emergency (ER) | payer BC ==
[~2019-01-26] VITALS: Ht 149.9 cm; Wt 65.9 kg
[~2019-01-26 15:48] MED LIST changes: -CRESTOR20 MG PO; -ISOSORBIDE MONO30 M1 PO; -NORVASC10 MG PO
[2019-01-26 15:50] VITALS: Ht 149.9 cm; Wt 65.9 kg
[2019-01-26 16:20] LABS: BASOPHILS 0.3 % (0-2); EOSINOPHILS 4.2 % (0-7); HEMATOCRIT 42.9 % (36.0-48.0); HEMOGLOBIN 14.2 g/dL (12-16); IMMATURE GRANULOCYTES 0.1 % (0-5); LYMPHOCYTES 30.5 % (15-50); MCH 30.8 pg (26.0-34.0); MCHC 33.1 g/dL (31.0-37.0); MCV 93.1 fL (80.0-100.0); MEAN PLATELET VOLUME 9.3 fL (7.4-10.4); MONOCYTES 9.8 % (2-11); NEUTROPHILS 55.1 % (40-80); PLATELET COUNT 260 10x3/uL (130-400); RBC 4.61 10x6/uL (4.00-5.40); RDW 12.9 % (11.5-14.5); WBC 6.9 10x3/uL (4.8-10.8)
[2019-01-26 16:36] LABS: CALC OSMOLALITY 284 mosm/kg (275-300); CALCIUM 8.9 mg/dL (8.5-10.1); CARBON DIOXIDE 25.4 mmol/L (21.0-32.0); CHLORIDE - SERUM 106 mmol/L (98-107); GLUCOSE 82 mg/dL (74-106); POTASSIUM - SERUM 3.9 mmol/L (3.5-5.1); SODIUM 143 mmol/L (136-145); UREA NITROGEN 15 mg/dL (7-18); eGFR NON AFRICAN AMERICAN 62 mL/min (90-120)
[2019-01-26 16:40] LABS: APTT 28.8 SECONDS (22.8-39.4); INR 0.91 (0.85-1.17); PROTIME 11.7 SECONDS (11.6-15.0)
[2019-01-26 17:00] LABS: ALBUMIN 3.3 g/dL (3.4-5.0); ALKALINE PHOSPHATASE 73 U/L (46-116); ALT (SGPT) 21 U/L (10-68); BILIRUBIN - TOTAL 0.21 mg/dL (0.2-1.3); CKMB 0.5 U/L (0.0-3.6); CREATINE KINASE 70 UL (21-215); MAGNESIUM - SERUM 1.7 mg/dL (1.8-2.4); PROTEIN - SERUM 7.1 g/dL (6.4-8.2); TROPONIN-I < 0.017 ng/mL (0.000-0.060)
[2019-01-26 19:35] VITALS: BP 109/67
== END 2019-01-26 19:35 | disposition home or self-care (01) ==
LOC: D.ER 15:48
PROVIDERS: Emergency Medicine
DX: R07.9 Chest pain, unspecified (principal); I25.10 Atherosclerotic heart disease of native coronary artery without angina pectoris

== ENCOUNTER 2019-01-29 09:33 | Outpatient (CLI) | payer BC ==
[~2019-01-29] VITALS: Ht 149.9 cm; Wt 65.5 kg
--- NOTE | ~2019-01-29 | HEMODYNAMI ---
PATIENT:LEONA SINGER MEDICAL RECORD: [id number] : 69 [facility] ADMISSION DATE: 01/29/19 Generatedon:01/29/201914:17 Patient name: LEONA SINGER Patient #: [id number] : 1965 Date of study: 01/29/2019 Page: Of Hemodynamic Procedure Report Patient Data Patient Demographics Procedure consent was obtained First Name: LEONA Gender: Female Last Name: LUCRECIA : 1965 Middle Initial: MOIZ Age: 53 year(s) Patient #: [id number] Race: SSN: [id number] Additional ID: [id number] Contact details Address: [address] [place] [address] State: [place] City: [place] Zip code: [address] Past Medical History Allergies: No known allergies Admission Admission Data Admission Date: 01/29/2019 Admission Time: 9:32 Arrival Date: 01/22/2019 Arrival Time: 0:00 Admit Source: Emergency Insurance Payor: Private department health insurance Room #: D.2119 [place] #: [id number] Height (in.): 58.66 BSA: 1.59 (m2) Height (cm.): 149 BMI: 29.28 (kg/m2) Weight (lbs.): 143.3 Weight (kg.): 65 Lab Results Lab Result Date: 01/29/2019 Lab Result Time: 0:00 Biochemistry Name Units Result Min Max BUN mg/dl 11 --(-*--)-- 7 18 Creatinine mg/dl 0.8 --(-*--)-- 0.6 1.3 CBC Name Units Result Min Max Hemoglobin g/dl 14.6 --(-*--)-- 13.5 17.5 Procedure Procedure Types Cath Procedure Diagnostic Procedure [facility] w/Coronaries Sedation Charges Moderate Sedation up to 45 minutes PCI Procedure Coronary Stent Coronary Stent Initial PTCA PTCA Initial Procedure Description Procedure Date Procedure Date: 01/29/2019 Procedure Start Time: 13:31 Procedure End Time: 14:14 Procedure Staff Name Function Arik Fan MD Admitting Physician Arik Fan MD Ordering physician Arik Fan MD Interpreting cartridge assembling machine adjuster Babatunde Taylor MD Performing Physician Tom Snowden RN Shipbuilding Draftsperson Ree Stone RT Monitor Jose Edwards RN Nurse Fran Aguila RT Scrub Indication Chest discomfort Procedure Data Cath Procedure Fluoroscopy Diagnostic fluoroscopy Total fluoroscopy Time: time: 17.7 min 17.7 min Diagnostic fluoroscopy Total fluoroscopy dose: dose: 1271 mGy 1271 mGy Contrast Material Contrast Material Type Amount (ml) Isovue 300 193 Entry Location Entry Primary Successful Side Size Upsize Upsize Entry Closure Sin ccessful Closure Location (Fr) 1 (Fr) 2 (Fr) Remarks Device Remarks Radial Right 6 Fr Mechanical artery Short Compression Estimated blood loss: 10 ml Diagnostic catheters Device Type Used For End Catheter Placement DIAGNOSTIC Bradford 110cm 5 Procedure Fr catheter ([id number]) Procedure Complications No complications Procedure Medications Medication Administration Route Dosage Oxygen etCO2 Nasal cannula 2 l/min Lidocaine 2% added to field 20 Heparin Flush Bag added to field 2 bags (1000units/500ml NS) 0.9% NaCl I.V. 100 ml/hr Radial Cocktail I.A. 1 syringe (Verapamil 2mg/Nitro 400mcg/Heparin 1500units) Versed I.V. 2 mg Fentanyl I.V. 50 mcg Versed I.V. 1 mg Fentanyl I.V. 50 mcg Heparin Bolus I.V. 4000 units Fentanyl I.V. 50 mcg Versed I.V. 1 mg Fentanyl I.V. 50 mcg Morphine I.V. 2 mg Hemodynamics Rest BSA: 1.59 (m2) HGB: 14.6 (g/dl) O2 Consumption: Estimated: 216.24 (ml/min) O2 Co nsumption indexed: Estimated:136 (ml/min/m) Pre Cath Intra NCS Post Cath Vital Signs Time Heart Resp SPO2 etCO2 NIBP Rhythm Pain Sedation Rate (ipm) (%) (mmHg) (mmHg) Status Level (bpm) 13:09:46 64 24 98 20.4 113/58(82) NSR 0 (11) 10(A) , No pain 13:13:56 65 16 98 29.4 96/60(77) NSR 0 (11) 10(A) , No pain 13:18:00 60 16 96 36.2 99/63(88) NSR 0 (11) 10(A) , No pain 13:22:08 61 15 96 35.4 98/57(75) NSR 0 (11) 9(A) , No pain 13:26:14 60 27 96 36.2 98/55(74) NSR 0 (11) 9(A) , No pain 13:30:19 58 14 96 36.2 96/58(71) NSR 0 (11) 9(A) , No pain 13:34:25 106 17 99 33.2 69/55(63) NSR 0 (11) 9(A) , No pain 13:39:18 64 14 96 33.2 99/48(69) NSR 0 (11) 9(A) , No pain 13:43:30 65 11 98 33.2 85/43(58) NSR 0 (11) 9(A) , No pain 13:47:34 64 12 97 36.9 103/50(74) NSR 0 (11) 9(A) , No pain 13:51:44 63 13 98 30.9 96/54(75) NSR 0 (11) 9(A) , No pain 13:55:45 72 16 100 33.2 100/66(87) NSR 0 (11) 9(A) , No pain 13:59:49 76 15 100 31.7 92/67(76) NSR 0 (11) 10(A) , No pain 14:04:42 61 16 97 32.4 116/67(86) NSR 0 (11) 10(A) , No pain 14:08:54 62 20 97 26.4 123/62(76) NSR 0 (11) 10(A) , No pain 14:13:08 64 14 98 35.4 104/63(86) NSR 0 (11) 10(A) , No pain Medications Time Medication Route Dose Verified Delivered Reason Not es Effectiveness by by 13:08:56 Oxygen etCO2 2 l/min Babatunde Garcia used for Nasal Brandon Edwards cooker loader cannula 13:09:08 Lidocaine 2% added 20ml Babatunde Fine for local to vial Brandon Taylor MD anesthetic field 13:09:14 Heparin Flush added 2 bags Babatunde Fine used for Bag to Brandon Taylor MD procedure (1000units/500ml field NS) 13:09:26 0.9% NaCl I.V. 100 Babatunde Buffie Per physician ml/hr Brandon Edwards RN 13:17:09 Versed I.V. 2 mg Babatundefaby Roie for sedation Brandon Edwards RN 13:17:16 Fentanyl I.V. 50 mcg Babatunde Garcia for sedation Brandon Edwards RN 13:31:40 Versed I.V. 1 mg Babatunde Buffie for sedation Brandon Edwards RN 13:31:45 Fentanyl I.V. 50 mcg Babatunde Buffie for sedation Brandon Edwards RN 13:33:16 Radial Cocktail I.A. 1 Babatunde Babatunde for (Verapamil syringe Brandon Taylor MD vasodilation 2mg/Nitro 400mcg/Heparin 1500units) 13:40:46 Heparin Bolus I.V. 4000 Babatunde Buffie for michael ified units Brandon Edwards RN anticoagulation with dr taylor 13:43:48 Fentanyl I.V. 50 mcg Babatunde Roie for sedation Brandon Edwards RN 14:05:32 Versed I.V. 1 mg Babatunde Buffie for sedation Brandon Edwards RN 14:05:41 Fentanyl I.V. 50 mcg Babatunde Roie for sedation Brandon Edwards RN 14:10:38 Morphine I.V. 2 mg Babatunde Roie for chest pain Brandon Edwards RN Procedure Log Time Note 12:51:12 Admit Source: Emergency department 12:51:14 Arrival Date: 01/22/2019 12:00:00 AM 12:51:49 Insurance Payor : Private health insurance 12:52:00 Patient Height : 58.66 inches 12:52:09 Patient Weight : 143.3 lbs 12:52:46 Lab Result : Hemoglobin 14.6 g/dl 12:52:46 Lab Result : Creatinine 0.8 mg/dl 12:52:46 Lab Result : BUN 11 mg/dl 12:52:56 Diagnostic Cath Status : Urgent 12:53:29 Indication : Chest discomfort 12:53:56 Procedure Status Urgent Heart Cath (IP). 12:53:59 Tom Snowden RN sent for patient. Start room use. 12:54:01 Time tracking: Regular hours (M-F 7:00 - 5:00) 12:54:06 Plan of Care:Hemodynamics will remain stable., Cardiac rhythm will remain stable., Comfort level will be maintained., Respiratory function will remain adequate., Patient/ family verbilizes understanding of procedure., Procedure tolerated without complication., Recovers from procedure without complications.. 12:54:12 Patient received from Med II to CCL 1 Alert and oriented. Tansferred to table in Supine position. 12:54:33 2) 60-89 Mildly reduced kidney function, and other findings (as for stage 1) point to kidney disease. 12:57:29 Signed procedure consent form obtained from patient. 12:57:30 Warm blankets applied, and ad hugger turned on for patient comfort. 12:57:38 Correct patient and procedure confirmed by team. 12:57:51 H&P Date Dictated: 01/29/2019 Within 30 days and on chart., H&P Addendum completed by physician on day of procedure. (MUST COMPLETE FOR ALL OUTPATIENTS). 12:57:56 Pre-procedure instructions explained to patient. 12:58:07 Family unavailable. 12:58:11 Patient NPO since Midnight. 12:58:19 Patient allergic to No known allergies 12:58:22 Is the patient allergic to Iodine/contrast media? No. 12:58:28 Was the patient premedicated? Yes 12:59:02 Is patient on blood thinner?Yes 12:59:05 ACC The patient was administered the following blood thiners within the last 24 hours: ACCBrilinta 12:59:32 Patient diabetic? No. 12:59:37 Snore? No 12:59:40 Sleep apnea? No 12:59:53 Dentures? Yes tight 13:00:17 Patient pain scale 4/10 ?. 13:00:29 IV patent on arrival in right forearm with 0.9% NaCl at KVO. 13:00:34 Lab results completed and on chart. 13:00:47 Stress Test: no; N/A ? 13:00:52 Right groin area was prepped with chlora-prep and draped in sterile fashion 13:00:54 Alarms reviewed by R. N. 13:00:54 Sharps counted by scrub and verified by R.N. 13:03:15 Use device set Radial Dx or PCI 13:05:21 ACIST Syringe (53142) opened to sterile field. 13:05:21 Medline Cath Pack ([id number]) opened to sterile field. 13:05:24 Bag Decanter (2002S) opened to sterile field. 13:05:25 ACIST Hand Control (59663) opened to sterile field. 13:05:25 ACIST Manifold (32807) opened to sterile field. 13:05:28 MBrace Wrist Support ([id number]) opened to sterile field. 13:05:30 EMERALD Guide Wire (712-809) opened to sterile field. 13:05:31 SHEATH 6FR RAIN (7655498) opened to sterile field. 13:08:40 Risk of Mortality: .3 13:08:42 Vital chart was started 13:08:43 Risk of blood transfusion: .3 13:08:47 Risk of BLAIR: 1.2 13:08:56 Oxygen 2 l/min etCO2 Nasal cannula was administered by Jose Edwards RN; used for procedure; Verbal order read back and verified. 13:09:08 Lidocaine 2% 20ml vial added to field was administered by Babatunde Taylor MD; for local anesthetic; Verbal order read back and verified. 13:09:14 Heparin Flush Bag (1000units/500ml NS) 2 bags added to field was administered by Babatunde Taylor MD; used for procedure; Verbal order read back and verified. 13:09:26 0.9% NaCl 100 ml/hr I.V. was administered by Jose Edwards RN; Per physician; Verbal order read back and verified. 13:16:09 Physician arrived 13:16:10 --------ALL STOP TIME OUT------ 13:16:10 Final Timeout: patient, procedure, and site verified with staff and physician. All members of the team are in agreement. 13:16:13 Right Radial & Right Groin site verified by team. 13:16:19 Fire Safety Assessment: A--An alcohol-based skin anteseptic being used preoperatively., C--Open oxygen or nitrous oxide is being used., D--An ESU, laser, or fiber-optic light is being used. 13:16:35 Physical assessment completed. ASA score P 3 - A patient with severe systemic disease as per Babatunde Taylor MD. 13:16:40 Maximum allowable contrast dose (3.7 X eGFR X 0.75)222 ml. 13:16:48 Sedation plan: IV Moderate Sedation Medication:Versed, Fentanyl 13:17:09 Versed 2 mg I.V. was administered by Jose Edwards RN; for sedation; Verbal order read back and verified. 13:17:16 Fentanyl 50 mcg I.V. was administered by Jose Edwards RN; for sedation; Verbal order read back and verified. 13:23:22 Zero performed for pressure channel P1 13:30:48 Procedure started. 13:30:48 Full Disclosure recording started 13:31:01 Local anesthetic to right femoral artery with Lidocaine 2% by Babatunde Taylor MD.INITIAL ACCESS ONLY 13:31:40 Versed 1 mg I.V. was administered by Jose Edwards RN; for sedation; Verbal order read back and verified. 13:31:45 Fentanyl 50 mcg I.V. was administered by Jose Edwards RN; for sedation; Verbal order read back and verified. 13:32:58 A 6 Fr Short sheath was inserted into the Right Radial artery 13:33:09 A DIAGNOSTIC Bradford 110cm 5 Fr catheter ([id number]) was advanced over the wire and used for Procedure. 13:33:12 LV angiography performed. 13:33:16 Radial Cocktail (Verapamil 2mg/Nitro 400mcg/Heparin 1500units) 1 syringe I.A. was administered by Babatunde Taylor MD; for vasodilation; Verbal order read back and verified. 13:34:33 EF : 60 % 13:34:40 RCA angiography performed. 13:35:55 LCA angiography performed. 13:36:25 Catheter removed. 13:38:42 GUIDE 6FR EBU 3.0 catheter ([id number]) opened to sterile field. 13:38:56 6 Fr EBU3 guide catheter was inserted over the wire 13:39:42 CHOICE PT Extra Support 182cm wire ([id number]) opened to sterile field. 13:40:46 Heparin Bolus 4000 units I.V. was administered by Jose Edwards RN; for anticoagulation; verified with dr taylor Verbal order read back and verified. 13:42:03 Wire advanced across lesion. 13:43:48 Fentanyl 50 mcg I.V. was administered by Jose Edwards RN; for sedation; Verbal order read back and verified. 13:45:39 FIELDER XT 190cm guidewire ([id number]) opened to sterile field. 13:46:14 fielder to diag 13:47:37 Inflate balloon Inflation number: 1 A EUPHORA 1.5 x 15 Balloon ([id number]) was prepped and advanced across the 1st Diag , then inflated to 21 [place] for 0:11 (min:sec) . 13:47:52 Balloon removed over the wire. 13:49:07 Inflate balloon Inflation number: 2 A EUPHORA 2.0 x 20 Balloon ([id number]) was prepped and advanced across the 1st Diag , then inflated to 13 [place] for 0:05 (min:sec) . 13:49:48 Inflation number: 3 The EUPHORA 2.0 x 20 Balloon ([id number]) was reinflated across the 1st Diag , to 13 [place] for 0:06 (min:sec) . 13:50:30 Balloon removed over the wire. 13:52:50 Place stent Inflation Number: 4 A MONTRELL RX 2.0 x 22 stent ([id number]) was prepped and advanced across the 1st Diag 95. The stent was deployed at 13 [place] for 0:08 (min:sec) 0. 13:52:58 Wire removed. 13:52:59 Guide catheter removed. 13:53:05 GUIDE 6FR AR 2.0 catheter (NI6WM76) opened to sterile field. 13:55:39 fielder wire advanced. 13:58:02 Wire removed. damaged. 13:58:16 choice pt wire advanced. 13:58:58 CHOICE PT Extra Support 182cm wire ([id number]) opened to sterile field. 14:01:07 Catheter removed. unable to get back-up support 14:01:53 GUIDE 6FR AR 2.0 SH catheter ([id number]) opened to sterile field. 14:01:55 INFLATOR Merit BasixCompak (ZX2447) opened to sterile field. 14:02:27 6 Fr AR2SH guide catheter was inserted over the wire 14:03:16 Wire advanced across lesion. 14:05:32 Versed 1 mg I.V. was administered by Jose Edwards RN; for sedation; Verbal order read back and verified. 14:05:41 Fentanyl 50 mcg I.V. was administered by Jose Edwards RN; for sedation; Verbal order read back and verified. 14:06:46 1.5 balloon inserted 14:07:12 ACT drawn and resulted at 333 seconds. (normal therapeutic range 180-240 seconds). 14:07:46 Inflation number: 1 The EUPHORA 1.5 x 15 Balloon ([id number]) was reinflated across the R PAV , to 21 [place] for 0:06 (min:sec) . 14:09:07 Balloon removed over the wire. 14::08 Wire removed. 14:09:08 Guide catheter removed. 14:09:17 TR BAND Standard (AJQ20VRR) opened to sterile field. 14:09:45 Sheath removed intact; hemostasis achieved with Mechanical Compression to the Right Radial artery. 14:09:50 Procedure ended.(Physican Out) 14:10:17 Fluoroscopy time 17.70 minutes. 14:10:24 Flurop Dose total: 1271 14:10:24 Fluoroscopy dose: 1271 mGy 14:10:33 Dose Area Product 50586 mGy/cm. 14:10:38 Morphine 2 mg I.V. was administered by Jose Edwards RN; for chest pain; Verbal order read back and verified. 14:10:42 Contrast amount:Isovue 300 193ml. 14:10:46 Maximum allowable dose exceeded? No. 14:10:47 Sharps counted by scrub and verified by R.N. 14:11:43 [place] band inflated with 10cc of air. 14:11:45 Insertion/operative site no bleeding no hematoma. 14:11:55 Post right radial artery:stable 14:12:02 Post-procedure physical assessment completed. ASA score P 3 - A patient with severe systemic disease as per Babatunde Taylor MD. 14:12:11 Post procedure rhythm: unchanged. 14:12:15 Estimated blood loss: 10 ml 14:12:20 Post procedure instruction explained to patient.Patient verbalizes understanding. 14:13:30 Procedure type changed to Cath procedure, Diagnostic procedure, LHC, LHC w/Coronaries, Sedation Charges, Moderate Sedation up to 45 minutes, PCI procedure, Coronary Stent, Coronary Stent Initial, PTCA, PTCA Initial 14:13:32 Procedure and supply charges have been captured, reviewed, submitted and are correct. 14:14:22 Procedure Complication : No complications 14:14:25 Vital chart was stopped 14:14:29 [facility] Findings: MVD- PCI performed (see procedure note) 14:14:39 See physician's report for complete and final results. 14:14:42 Report given to [facility]. 14:14:46 Patient transfered to [facility] with Bed. 14:14:48 Procedure ended. 14:14:48 Full Disclosure recording stopped 14:14:51 End room use (Document Last) 14:15:01 ACC-PCI Only Patient was given prescriptions, or instructed by Babatunde Taylor MD to start/continue the following medications upon discharge: Brilinta Intervention Summary Intervention Notes Time ActionType Lesion and Equipment Used Action# Pressure Duration Attributes 13:47:37 Inflate 1st Diag EUPHORA 1.5 x 1 21 00:11 balloon 15 Balloon ([id number]) 13:49:07 Inflate 1st Diag EUPHORA 2.0 x 2 13 00:05 balloon 20 Balloon ([id number]) 13:49:48 Reinflate 1st Diag EUPHORA 2.0 x 3 13 00:07 balloon 20 Balloon ([id number]) 13:52:50 Place stent 1st Diag MONTRELL RX 2.0 x 4 13 00:08 22 stent ([id number]) 14:07:46 Reinflate R PAV EUPHORA 1.5 x 1 21 00:06 balloon 15 Balloon ([id number]) Device Usage Item Name Manufacture Quantity Catalog Number Hospital Part Current M inimal Lot# / Charge Number Stock Stock Serial# Code ACIST Syringe Acist 1 37770 429312 462648 011980 2 0 (80446) Medical Systems Inc Medline Cath Medline 1 [id number] 572190 40730 476505 5 Pack ([id number]) Bag Decanter Microtek 1 2001S 918105 05779 621240 5 () Medical Inc. ACIST Hand Acist 1 03245 983601 671854 340820 5 Control Medical (95480) Systems Inc ACIST Manifold Acist 1 05712 743723 819751 978195 5 (59319) Medical Systems Inc MBrace Wrist Advanced 1 140-0250-00 938869 02696 468085 5 Support Vascular ([id number]) Dynamics EMERALD Guide Cardinal 1 502-548 901625 463818 104864 5 Wire (502455) Health SHEATH 6FR Cardinal 1 1877719 656677 4400102 873274 5 RAIN (3719705) Health DIAGNOSTIC Terumo 1 40-5013 719695 841603 581207 5 Bradford 110cm 5 Fr catheter (237421) GUIDE 6FR EBU Medtronic 1 [id number] 049080 82046 540048 0 3.0 catheter (TA2CKL62) CHOICE PT [place] 2 [id number] 088707 001706 481817 5 Extra Support Scientific 182cm wire (8037500V6) FIELDER XT Lindquist 1 [id number] 378804 59969 719106 5 190cm Vascular guidewire ([id number]) EUPHORA 1.5 x Medtronic 1 [id number] 497682 246596 479398 5 [id number] 15 Balloon ([id number]) EUPHORA 2.0 x Medtronic 1 [id number] 279740 304404 094040 5 [id number] 20 Balloon ([id number]) MONTRELL RX 2.0 x Medtronic 1 [id number] 068538 1083966 639343 5 [id number] 22 stent ([id number]) GUIDE 6FR AR Medtronic 1 [id number] 121772 87457 216242 1 2.0 catheter ([id number]) GUIDE 6FR AR Medtronic 1 [id number] 859599 37245 670740 1 2.0 SH catheter ([id number]) INFLATOR Merit Merit 1 ME0098 439919 047773 793424 1 5 MVERSEtxRealCrowd (EO5777) TR BAND Terumo 1 [id number] 361320 002456 949563 4 0 Standard ([id number]) Signature Audit [place] Stage Time Signature Unsigned Intra-Procedure 01/29/2019 Ree Stone 2:15:18 PM RT(R) Intra-Procedure 01/29/2019 Jose Edwards RN 2:15:47 PM Intra-Procedure 01/29/2019 Babatunde Taylor 2:17:25 PM [facility] [address] [place] [address], [place] [address]
--- NOTE | 2019-01-29 10:00 | NUR ---
PT ARRIVED A DIRECT ADMIT FROM OFFICE. PT IS A&O SITTING UP ON EDGE OF BED. WILL BEGIN ADMISSION WORKUP AND OBTAIN VITALS AND REVIEW ORDERS. PT DENIES ANY IMMEDIATE NEEDS QUESTIONS OR CONCERNS. WILL CTM.
[2019-01-29] MEDS ORDERED: NORVASC10 MG PO (10:02)
[2019-01-29] MEDS ORDERED: BRILINTA90 MG PO (10:02)
[2019-01-29] MEDS ORDERED: ISOSORBIDE MONO30 M1 PO (10:03)
[2019-01-29 10:08] VITALS: BP 119/73; BMI 29.1
[2019-01-29 10:59] VITALS: Ht 149.9 cm; Wt 65.5 kg
[2019-01-29 11:05] LABS: BASOPHILS 0.2 % (0-2); EOSINOPHILS 1.9 % (0-7); HEMATOCRIT 43.9 % (36.0-48.0); HEMOGLOBIN 14.6 g/dL (12-16); IMMATURE GRANULOCYTES 0.2 % (0-5); LYMPHOCYTES 23.6 % (15-50); MCHC 33.3 g/dL (31.0-37.0); MCV 93.2 fL (80.0-100.0); NEUTROPHILS 66.1 % (40-80); PLATELET COUNT 261 10x3/uL (130-400); RBC 4.71 10x6/uL (4.00-5.40); RDW 12.8 % (11.5-14.5)
[2019-01-29 11:34] LABS: ALBUMIN 3.8 g/dL (3.4-5.0); ALKALINE PHOSPHATASE 79 U/L (46-116); ALT (SGPT) 21 U/L (10-68); BILIRUBIN - TOTAL 0.27 mg/dL (0.2-1.3); CALC OSMOLALITY 281 mosm/kg (275-300); CALCIUM 9.5 mg/dL (8.5-10.1); CHLORIDE - SERUM 104 mmol/L (98-107); CKMB 0.5 U/L (0.0-3.6); CREATINE KINASE 74 UL (21-215); CREATININE - SERUM 0.8 mg/dL (0.6-1.3); GLUCOSE 96 mg/dL (74-106); POTASSIUM - SERUM 4.1 mmol/L (3.5-5.1); PROTEIN - SERUM 7.3 g/dL (6.4-8.2); SODIUM 142 mmol/L (136-145); UREA NITROGEN 11 mg/dL (7-18); eGFR NON AFRICAN AMERICAN 80 mL/min (90-120)
--- NOTE | 2019-01-29 11:34 | NUR ---
EKG COMPLETED ORDERED. 20 GUAGE PIV PLACED TO LISA [id number]. TERESA IRIZARRY WITH CARDIOLOGY AT BEDSIDE AND DISCUSSED WITH PT DISEASE PROCESS AND PT WILL BE GOING TO HEART CATH THIS AFTERNOON. WILL OBTAIN CONSENTS AND PRE OP ORDERS. NO CURRENT NEEDS. WILL CTM.
[2019-01-29 11:35] LABS: TROPONIN-I < 0.017 ng/mL (0.000-0.060)
[2019-01-29 11:55] LABS: CHOL - HDL RATIO 2.6 ratio (2.3-4.1); LDL-HDL RATIO 1.5 ratio (1.5-3.5)
--- NOTE | 2019-01-29 12:38 | NUR ---
NOTCH MACHINE OPERATOR CALLED TO PRE-OP PT. PRE-OP MEDICATIONS GIVEN AND CONSENTS OBTAINED. PT SITTING UP IN BED READY TO GO .
--- NOTE | 2019-01-29 12:56 | NUR ---
PT LEAVING FOR CATH PROCEDURE NOW.
--- NOTE | 2019-01-29 14:49 | NUR ---
PT BACK FROM BOOK BINDER. SITTING UP IN BED RESTING QUIETLY. NEW BAND TO HER R.WRIST CDI NO S/S OF BLEEDING OR HEMATOMA NOTED. VSS AND BEING MONITERED PER POST PROCEDURE POLICY. PT IS HOPING TO BE DISCHARGED TODAY. WILL DISCUSS WITH PRIMARY AND FIND OUT. PT IS HUNGRY WILL ORDER TRAY NOW. NO FURTHER NEEDS.
--- NOTE | 2019-01-29 15:22 | NUR ---
R.WRIST BAND REMAINS INFLATED. NO S/S OF BLEEDING OR HEMATOMA NOTED. PT STATES SHE IS FEELING WELL OVERALL. VSS AND STILL BEING MONITERED PER POST PROCEDURE PROTOCOL. PT DENIES ANY NEEDS AT THIS TIME. WILL CTM.
[2019-01-29 15:50] VITALS: BP 104/63
--- NOTE | 2019-01-29 16:30 | NUR ---
PT SITTING UP IN BED RESTING QUIETLY. R.WRIST BAND REMAINS CDI NO S/S OF BLEEDING OR HEMATOMA NOTED. WILL BEGIN RELEASING AIR AND WATCHING FOR ANY BLEEDING SHORTLY. VSS. PT STATES SHE IS FEELING WELL. EATING DINNER. CL IN REACH, SPOUSE AT BEDSIDE. WILL CTM.
[2019-01-29] MEDS ORDERED: CRESTOR20 MG PO (17:47)
--- NOTE | 2019-01-29 18:05 | NUR ---
REMOVED HALF OF AIR FROM PTS R.WRIST BAND. NO BLEEDING NOTED. WILL CONTINUE TO RELEASE ABLE. PT SITTING UP IN BED RESTING QUIETLY. VSS. WILL CTM.
--- NOTE | 2019-01-29 18:30 | NUR ---
REMOVED REMAINING AIR FROM R.WRIST BAND. NO FURTHER BLEEDING NOTED. PT STILL RESTING AND WAITING ON HER TRANSPORTATION THEN WILL REVIEW DISCHARGE INSTRUCTIONS.
--- NOTE | 2019-01-29 18:33 | NUR ---
CALLED IN PTS NEW STATIN TO [facility] SPOKE TO PHARMACIST MYRNA.
--- NOTE | 2019-01-29 18:56 | NUR ---
D/C PTS L.FA PIV WITH CATHETER TIP FULLY INTACT. DISCHARGE TEACHING PROVIDED AND PAPERS SIGNED. PT VERBALIZED UNDERSTANDING AND DENIES ANY QUESTIONS OR CONCERNS. ALL BELONGINGS COLLECTED. D/C TELEMETRY AND RETURNED TO [facility]. NO FURTHER NEEDS. PT READY TO BE DISCHARGED.
--- NOTE | 2019-01-31 09:03 | MORECARE ---
CASE MANAGEMENT DISCHARGE SUMMARY PATIENT: LEONA SINGER UNIT: [id number] ADM DATE: 01/29/19 AGE: 53 : [birth year] SEX: F ROOM/BED: D.5201 AUTHOR: NANCY ARGUETA PHYSICIAN: REFERRING PHYSICIAN: JAMIE RAPP DO DATE OF SERVICE: 01/31/19 Discharge Plan Patient Name: LEONA SINGER [facility] [facility] 1965 Planned Disposition: Home Anticipated Discharge Date: 01/29/19 Discharge Date: 01/29/2019 Expected LOS: 1 Initial Reviewer: [email or web address] Initial Review Date: 01/31/2019 Generated: 01/31/19 10:03 am Patient Name: LEONA SINGER Page 52471 at 0903 All edits/amendments must be made on the electronic document DICTATION DATE: 01/31/19902 HIGH SCHOOL PHYSICAL EDUCATION TEACHER: FREDERICK 01/31/19902 RPT#: [id number] DC DATE:01/29/19 STATUS: DIS IN [facility] [address] [place] [address] END OF REPORT
--- NOTE | 2019-01-31 15:28 | OP ---
PATIENT NAME: LEONA SINGER MEDICAL RECORD: [id number] :69 LOCATION:[facility] ADMISSION DATE: SURGEON: LAURIE ACOSTA MD DATE OF OPERATION: 01/29/2019 PROCEDURES: 1. PTCA stent LAD diagonal. 2. PTCA RCA PLV. 3. Left heart catheterization. 4. Selective coronary angiography. 5. Left ventriculogram. INDICATION: Unstable angina and coronary artery disease. PROCEDURE IN DETAIL: After informed consent was obtained and after a detailed description of risks, benefits as well as alternative therapies, the patient elected to with angiogram and angioplasty. The right radial area was prepped and draped in normal sterile fashion. Right radial artery was cannulated via modified Seldinger technique with placement of 6-Ecuadorean sheath. All catheters exchanged through this sheath. FINDINGS: Left ventriculogram was performed in standard 30-degree FERNANDES view, reveals good cardiac wall motion throughout all segments. Overall ejection fraction estimated 60%. SELECTIVE CORONARY ANGIOGRAPHY: 1. Left main has no significant angiographic disease. 2. Left anterior descending has previously placed stents, these are widely patent. There is an LAD diagonal and has 90+ percent stenosis at the ostium in the stented area. 3. Left circumflex has previously placed stents, these are widely patent. 4. The right coronary has previously placed stents, these are widely patent. The PLV however, has 95% stenosis at the ostium. It does take off in the stented area as well. PTCA STENT OF THE LAD DIAGONAL: We were able to traverse this lesion with a Fielder wire advance 1.5 and 2.0 balloon into this. We stented this with a 2.0 x 22mm [place]. Result was 0% residual stenosis. PTCA STENT OF THE RCA PLV: Very angulated and difficult to traverse. We were able to finally traverse it with a Fielder and a Choice PT extra support wire ballooning it with a 1.5 balloon as well as a 90-degree takeoff. I doubt any stent would traverse this but with a balloon, there was an excellent result was 0% residual stenosis. OVERALL IMPRESSION: Successful percutaneous transluminal coronary angioplasty stent of the left anterior descending diagonal and PTCA of the PLV branch of the RCA, both taking off in previously stented areas from the main vessel both 90% to 95% stenosis at the stented area at the ostium to 0% residual stenosis. TRANSINT:[id number] Voice Confirmation ID: [id number] DOCUMENT ID: [id number] OPERATIVE REPORT [id number] LEONA SINGER, LAURIE PIÑA at 1528 CC: [id number] DICTATION DATE: 01/29/19 1416 FIRE AND EXPLOSION INVESTIGATOR: 01/29/19 1834 DEP CLI 01/29/19 [id number] [place] [address]
== END 2019-01-29 19:02 | disposition home or self-care (01) ==
LOC: OBSVTIME → D.OPS 09:33 → D.M2 19:02 → EDSTATUS 01-31 10:24
PROVIDERS: Internal Medicine Interventional Cardiology; ATTEND Family Medicine
DX: I25.110 Atherosclerotic heart disease of native coronary artery with unstable angina pectoris (principal); R07.9 Chest pain, unspecified

== ENCOUNTER → 2019-02-04 05:29 | Outpatient (CLI) | payer BC ==
[~2019-02-04] VITALS: Ht 149.9 cm; Wt 65.9 kg
--- NOTE | ~2019-02-04 | HEMODYNAMI ---
PATIENT:LEONA SINGER MEDICAL RECORD: [id number] : 69 [id number] ADMISSION DATE: 02/04/19 Generatedon:02/04/20199:43 Patient name: LEONA SINGER Patient #: [id number] : 1965 Date of study: 02/04/2019 Page: Of Hemodynamic Procedure Report Patient Data Patient Demographics Procedure consent was obtained First Name: LEONA Gender: Female Last Name: LUCRECIA : 1965 Middle Initial: MOIZ Age: 53 year(s) Patient #: [id number] Race: SSN: [id number] Additional ID: [id number] Contact details Address: [address] [place] [address] State: [place] City: [place] Zip code: [address] Past Medical History Allergies: No known allergies Admission Admission Data Admission Date: 02/04/2019 Admission Time: 5:29 Height (in.): 59 BSA: 1.61 (m2) Height (cm.): 149.86 BMI: 29.29 (kg/m2) Weight (lbs.): 145 Weight (kg.): 65.77 Lab Results Lab Result Date: 01/29/2019 Lab Result Time: 0:00 Biochemistry Name Units Result Min Max BUN mg/dl 11 --(-*--)-- 7 18 Creatinine mg/dl 0.8 --(-*--)-- 0.6 1.3 CBC Name Units Result Min Max Hemoglobin g/dl 14.6 --(-*--)-- 13.5 17.5 Procedure Procedure Types Cath Procedure Peripheral Cath Diagnostic Procedure 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 Peripheral Procedures Four Vessel Arteriogram Procedure Description Procedure Date Procedure Date: 02/04/2019 Procedure Start Time: 8:37 Procedure Staff Name Function Marshal Calvo MD Performing Physician Paulette Stover RT Vacuum Bottle Assembler Alberta Frances RN Nurse FARIBA ARTEAGA RT Scrub Procedure Data Cath Procedure Fluoroscopy Diagnostic fluoroscopy Total fluoroscopy Time: 10 time: 10 min min Diagnostic fluoroscopy Total fluoroscopy dose: 539 dose: 539 mGy mGy Contrast Material Contrast Material Type Amount (ml) Isovue 300 180 Entry Location Entry Primary Successful Side Size Upsize Upsize Entry Closure Succ essful Closure Location (Fr) 1 (Fr) 2 (Fr) Remarks Device Remarks Femoral Right Angio-VIP artery 6Fr Diagnostic catheters Device Type Used For End Catheter Placement Merit ULTRA BOLUS FLUSH 5Fr 65CM catheter ([id number]) Procedure Medications Medication Administration Route Dosage Benadryl I.V. 25 mg Heparin Flush Bag added to field 3 bags (1000units/500ml NS) Lidocaine 1% added to field 20 Versed I.V. 1 mg Fentanyl I.V. 50 mcg Versed I.V. 1 mg Fentanyl I.V. 50 mcg Hemodynamics Rest BSA: 1.61 (m2) HGB: 14.6 (g/dl) O2 Consumption: Estimated: 137.78 (ml/min) O2 Co nsumption indexed: Estimated:85.58 (ml/min/m) Heart Rate: 38 (bpm) Snapshots Pre Cath Intra NCS Post Cath Vital Signs Time Heart Resp SPO2 etCO2 NIBP (mmHg) Rhythm Pain Sedation Rate (ipm) (%) (mmHg) Status Level (bpm) 8:22:04 53 20 100 27 Measuring NSR 0 (11) 10(A) , No pain 8:23:28 57 37 100 26.2 Time NSR 0 (11) 10(A) Exceeded , No pain 8:28:15 60 3 100 27 164/114(134) NSR 0 (11) 10(A) , No pain 8:32:35 58 18 100 29.2 118/53(91) NSR 0 (11) 10(A) , No pain 8:36:47 60 19 100 30 98/47(75) NSR 0 (11) 8(A) , No pain 8:40:59 53 19 100 28.5 96/49(69) NSR 0 (11) 8(A) , No pain 8:45:11 57 38 100 30.8 88/46(67) NSR 0 (11) 8(A) , No pain 8:49:21 58 17 100 31.5 99/44(75) NSR 0 (11) 8(A) , No pain 8:53:33 61 12 100 30.8 103/51(79) NSR 0 (11) 8(A) , No pain 8:57:47 64 36 32.3 102/44(82) NSR 0 (11) 8(A) , No pain 9:02:01 64 27 100 31.5 93/49(73) NSR 0 (11) 8(A) , No pain 9:06:09 71 70 31.5 107/51(85) NSR 0 (11) 8(A) , No pain 9:10:22 64 17 100 23.2 100/56(77) NSR 0 (11) 8(A) , No pain 9:14:32 64 20 100 30.8 108/42(81) NSR 0 (11) 8(A) , No pain 9:18:46 63 29 100 31.5 104/45(85) NSR 0 (11) 8(A) , No pain 9:23:00 63 18 100 31.5 98/45(81) NSR 0 (11) 8(A) , No pain 9:27:08 61 18 100 33 89/48(72) NSR 0 (11) 8(A) , No pain 9:32:07 51 25 100 21 Measuring NSR 0 (11) 8(A) , No pain 9:32:09 51 25 100 20.2 113/56(100) NSR 0 (11) 8(A) , No pain 9:36:23 58 42 100 27.7 112/57(97) NSR 0 (11) 8(A) , No pain 9:40:39 58 17 100 30 106/52(93) NSR 0 (11) 8(A) , No pain Medications Time Medication Route Dose Verified Delivered Reason Notes Effect iveness by by 8:30:10 Benadryl I.V. 25 mg Marshal Alberta used for Juan Daniel Calvo RN procedure 8:30:46 Heparin Flush added 3 Marshal Alberta used for Bag to bags Juan Daniel Calvo RN procedure (1000units/500ml field PIÑA NS) 8:31:08 Lidocaine 1% added 20ml Marshal Alberta used for to vial Juan Daniel Calvo RN procedure field PIÑA 8:35:06 Versed I.V. 1 mg Marshal Alberta for Juan Daniel Calvo RN sedation 8:35:17 Fentanyl I.V. 50 Marshal Pinzon for mcg Juan Daniel Calvo RN sedation 8:57:06 Fentanyl I.V. 50 Marshal Pinzon for mcg Juan Dainel Calvo RN sedation 9:00:51 Versed I.V. 1 mg Marshal Pinzon for Juan Daniel Calvo RN, MD Procedure Log Time Note 7:52:57 Patient Height : 59 inches 7:53:01 Patient Weight : 145 lbs 7:55:38 DOC .035 wire ([id number]) opened to sterile field. 7:55:39 Micropuncture VSI 4FR kit opened to sterile field. 7:55:40 SHEATH 5FR [place] Smet (KRD942) opened to sterile field. 7:55:43 TUBING Contrast Injection High Pressure (TYX923N) opened to sterile field. 7:55:49 Use device set IR Diagnostic 7:55:50 Tegaderm 4 x 4 (1626W) opened to sterile field. 7:55:51 Sterile Angiographic Pack opened to sterile field. 7:55:52 Bag Decanter (2002S) opened to sterile field. 7:55:52 ACIST Manifold (06271) opened to sterile field. 7:55:53 ACIST Hand Control (22978) opened to sterile field. 7:55:54 ACIST Syringe (51161) opened to sterile field. 7:55:58 8:14:33 Alberta Frances RN sent for patient. Start room use. 8:14:35 Time tracking: Regular hours (M-F 7:00 - 5:00) 8:14:40 Plan of Care:Hemodynamics will remain stable., Cardiac rhythm will remain stable., Comfort level will be maintained., Respiratory function will remain adequate., Patient/ family verbilizes understanding of procedure., Procedure tolerated without complication., Recovers from procedure without complications.. 8:14:46 Patient received from Outpatients to IR Alert and oriented. Tansferred to table in Supine position. 8:14:47 Signed procedure consent form obtained from patient. 8:14:48 Warm blankets applied, and ad hugger turned on for patient comfort. 8:14:49 Correct patient and procedure confirmed by team. 8:14:49 ECG and BP/O2 sat monitors applied to patient. 8:14:51 8:14:56 H&P Date Dictated: 02/04/2019 H&P Addendum completed by physician on day of procedure. (MUST COMPLETE FOR ALL OUTPATIENTS). 8:14:57 Pre-procedure instructions explained to patient. 8:14:58 Pre-op teaching completed and patient verbalized understanding. 8:15:01 Patient NPO since Midnight. 8:15:08 Patient allergic to No known allergies 8:15:11 Is the patient allergic to Iodine/contrast media? No. 8:15:33 Is patient on blood thinner?Yes 8:15:34 Patient diabetic? Yes. 8:15:36 8:15:38 ----Pre-sedation anethsthesia assessment.---- 8:15:42 Snore? No 8:15:44 Sleep apnea? No 8:15:50 Deviated septum? No 8:15:51 Opens mouth fully? Yes 8:15:52 Sticks out tongue? Yes 8:17:59 Airway obstruction? No ? 8:17:59 Dentures? No ? 8:18:14 Previous problem with sedation/anesthesia? No HEART DISEASE 11 STENTS 8:18:17 8:18:31 IV patent on arrival in left antecubital with 0.45%NaCl at KVO. 8:18:42 Right groin area was prepped with chlora-prep and draped in sterile fashion 8:18:48 8:20:16 Baseline sample Acquired. 8:20:16 Vital chart was started 8:20:17 Full Disclosure recording started 8:30:10 Benadryl 25 mg I.V. was administered by Alberta Frances RN; used for procedure; Verbal order read back and verified. 8:30:46 Heparin Flush Bag (1000units/500ml NS) 3 bags added to field was administered by Alberta Frances RN; used for procedure; Verbal order read back and verified. 8:31:08 Lidocaine 1% 20ml vial added to field was administered by Alberta Frances RN; used for procedure; Verbal order read back and verified. 8:33:15 2) 60-89 Mildly reduced kidney function, and other findings (as for stage 1) point to kidney disease. 8:34:22 Physician arrived 8:34:23 --------ALL STOP TIME OUT------ 8:34:24 Final Timeout: patient, procedure, and site verified with staff and physician. All members of the team are in agreement. 8:34:33 Fire Safety Assessment: A--An alcohol-based skin anteseptic being used preoperatively., C--Open oxygen or nitrous oxide is being used. 8:35:06 Versed 1 mg I.V. was administered by Alberta Frances RN; for sedation; Verbal order read back and verified. 8:35:17 Fentanyl 50 mcg I.V. was administered by Alberta Frances RN; for sedation; Verbal order read back and verified. 8:37:20 Procedure started. 8:37:26 Local anesthetic to right femoral artery with Lidocaine 1% by Marshal Calvo MD.INITIAL ACCESS ONLY 8:37:29 Arterial access obtained using ultrasound guidance. 8:38:37 A Merit ULTRA BOLUS FLUSH 5Fr 65CM catheter ([id number]) was advanced over the wire and used for . 8:46:45 TORQUE DEVICE PLASTIC .038 ( TD01) opened to sterile field. 8:46:46 GLIDE WIRE ANGLE 260cm (WU9714) opened to sterile field. 8:46:46 GLIDE CATHETER 5FR ANGLED 100cm (CG508) opened to sterile field. 8:57:06 Fentanyl 50 mcg I.V. was administered by Alberta Frances RN; for sedation; Verbal order read back and verified. 9:00:51 Versed 1 mg I.V. was administered by Alberta Frances RN; for sedation; Verbal order read back and verified. 9:01:40 Angiography was performed. 9:29:17 ANGIOSEAL-VIP PLUS 6 FR opened to sterile field. 9:29:52 A sheath was inserted into the Right Femoral artery 9:29:52 Sheath removed intact; hemostasis achieved with Angio-VIP 6Fr to the Right Femoral artery. 9:29:55 Procedure ended.(Physican Out) 9:30:17 Fluoroscopy time 10.00 minutes. 9:30:23 Fluoroscopy dose: 539 mGy 9:30:23 Flurop Dose total: 539 9:30:35 Contrast amount:Isovue 300 180ml. 9:30:57 Procedure and supply charges have been captured, reviewed, submitted and are correct. 9:42:58 Post Procedure Pulses reassessed and unchanged 9:43:09 Report given to Outpatients. 9:43:37 Vital chart was stopped Device Usage Item Name Manufacture Quantity Catalog Number Hospital Part Current [facility] Lot# / Charge Number Stock Stock Serial# Code DOC .035 wire Cook Medical 1 [id number] [id number] 332146 5 ([id number]) Micropuncture VSI VASCULAR 1 [id number] 030497 691576 5 VSI 4FR kit SOLUTIONS SHEATH 5FR Terumo 1 [id number] 428388 744139 997344 5 De Smet (PIC657) TUBING Merit 1 [id number] 037309 339339 130511 5 Contrast Medical Injection High Pressure (KNA528Y) Tegaderm 4 x 4 3M 1 1626W 321458 066360 852147 5 (1626W) Sterile Cardinal 1 [id number] 249309 231485 5 Angiographic Health Pack Bag Decanter Microtek 1 2001S 495892 98687 019723 5 (2001S) Medical Inc. ACIST Manifold Acist 1 63031 778667 324361 570824 5 (01204) Medical Systems Inc ACIST Hand Acist 1 67066 438742 867261 787897 5 Control Medical (99321) Systems Inc ACIST Syringe Acist 1 19935 193940 611351 923173 20 (19651) Medical Systems Inc Merit ULTRA Merit 1 [id number] 941013 365413 5 BOLUS FLUSH Medical 5Fr 65CM catheter ([id number]) TORQUE DEVICE [place] 1 TD01 168455 964794 431028 5 PLASTIC .038 ( Scientific TD01) GLIDE WIRE Terumo 1 MG6261 817262 618362 380307 5 ANGLE 260cm (IB1049) GLIDE CATHETER Terumo 1 CG508 558464 76295 672706 4 5FR ANGLED 100cm (CG508) ANGIOSEAL-VIP [facility] Danny 1 272429 304384 169758 196124 5 [id number] PLUS 6 FR Signature Audit [place] Stage Time Signature Unsigned Intra-Procedure 02/04/2019 Paulette Stover 9:43:33 AM RT(R) [facility] [address] [place] [address]
[~2019-02-04 05:29] MED LIST changes: +CRESTOR20 MG PO; +ISOSORBIDE MONO30 M1 PO; +NORVASC10 MG PO
[2019-02-04 06:21] LABS: APTT 31.4 SECONDS (22.8-39.4); INR 0.93 (0.85-1.17)
[2019-02-04 06:23] LABS: ANION GAP 15.2 mmol/L (8-16); CALCIUM 9.1 mg/dL (8.5-10.1); CARBON DIOXIDE 26.9 mmol/L (21.0-32.0); CREATININE - SERUM 0.9 mg/dL (0.6-1.3); POTASSIUM - SERUM 4.1 mmol/L (3.5-5.1)
[2019-02-04 06:26] LABS: BASOPHILS 0.3 % (0-2); EOSINOPHILS 3.6 % (0-7); HEMATOCRIT 43.4 % (36.0-48.0); HEMOGLOBIN 14.4 g/dL (12-16); IMMATURE GRANULOCYTES 0.1 % (0-5); LYMPHOCYTES 29.4 % (15-50); MCHC 33.2 g/dL (31.0-37.0); MCV 93.3 fL (80.0-100.0); MEAN PLATELET VOLUME 9.6 fL (7.4-10.4); MONOCYTES 10.2 % (2-11); NEUTROPHILS 56.4 % (40-80); PLATELET COUNT 263 10x3/uL (130-400); RBC 4.65 10x6/uL (4.00-5.40); RDW 12.9 % (11.5-14.5); WBC 7.3 10x3/uL (4.8-10.8)
[2019-02-04 06:43] VITALS: Ht 149.9 cm; Wt 65.9 kg
[2019-02-04 10:24] LABS: CKMB 0.4 U/L (0.0-3.6); CREATINE KINASE 75 UL (21-215); TROPONIN-I < 0.017 ng/mL (0.000-0.060)
== END | disposition home or self-care (01) ==
LOC: D.SP 05:29 → D.RAD 08:00 → D.SP 08:00
PROVIDERS: General Practice; ATTEND Thoracic Surgery (Cardiothoracic Vascular Surgery)
DX: I65.22 Occlusion and stenosis of left carotid artery (principal)

== ENCOUNTER 2019-02-04 10:14 | Observation (INO) | payer BC ==
[~2019-02-04] VITALS: Ht 149.9 cm; Wt 65.9 kg
--- NOTE | ~2019-02-04 | HEMODYNAMI ---
PATIENT:LEONA SINGER MEDICAL RECORD: [id number] : 69 LOCATION:[address] ADMISSION DATE: 02/04/19 Generatedon:02/05/201912:14 Patient name: LEONA SINGER Patient #: [id number] : 1965 Date of study: 02/05/2019 Page: Of Hemodynamic Procedure Report Patient Data Patient Demographics Procedure consent was obtained First Name: LEONA Gender: Female Last Name: LUCRECIA : 1965 Middle Initial: MOIZ Age: 53 year(s) Patient #: [id number] Race: SSN: [id number] Additional ID: [id number] Contact details Address: [address] [place] [address] State: [place] City: [place] Zip code: [address] Past Medical History Allergies: No known allergies Admission Admission Data Admission Date: 02/04/2019 Admission Time: 10:14 Room #: [facility] Procedure Procedure Types Cath Procedure Diagnostic [facility]IVUS FFR Initial Procedure Description Procedure Date Procedure Date: 02/05/2019 Procedure Start Time: 11:54 Procedure End Time: 12:10 Procedure Staff Name Function Babatunde Taylor MD Performing Physician Fran Aguila RT Monitor Tom Snowden RN Nurse Ree Stone RT Scrub Indication Chest pain Procedure Data Cath Procedure Fluoroscopy Diagnostic fluoroscopy Total fluoroscopy Time: 2.6 time: 2.6 min min Diagnostic fluoroscopy Total fluoroscopy dose: dose: 102.3 mGy 102.3 mGy Contrast Material Contrast Material Type Amount (ml) Isovue 370 36 Entry Location Entry Primary Successful Side Size Upsize Upsize Entry Closure Sin ccessful Closure Location (Fr) 1 (Fr) 2 (Fr) Remarks Device Remarks Radial Right 6 Fr Manual artery Short Compression Procedure Complications No complications Procedure Medications Medication Administration Route Dosage 0.9% NaCl I.V. 100 ml/hr Oxygen etCO2 Nasal cannula 2 l/min Heparin Flush Bag added to field 2 bags (1000units/500ml NS) Lidocaine 2% added to field 20 Radial Cocktail added to field 1 syringe (Verapamil 2mg/Nitro 400mcg/Heparin 1500units) Versed I.V. 2 mg Fentanyl I.V. 100 mcg Radial Cocktail I.A. 1 syringe (Verapamil 2mg/Nitro 400mcg/Heparin 1500units) Fentanyl I.V. 50 mcg Hemodynamics Rest HGB: 14.6 (g/dl) Heart Rate: 72 (bpm) Pressure Samples Time Site Value (mmHg) Purpose Heart Use Rate(bpm) 12:02 LV 136/-7,21 Snapshot 83 Snapshots Pre Cath Intra NCS Post Cath Vital Signs Time Heart Resp SPO2 etCO2 NIBP Rhythm Pain Status Sedation Rate (ipm) (%) (mmHg) (mmHg) Level (bpm) 11:37:42 60 19 90 0 101/55(80) NSR 2 (11) , 10(A) Uncomfortable 11:41:48 59 12 96 0 88/50(62) NSR 2 (11) , 10(A) Uncomfortable 11:45:48 60 10 95 0 95/53(70) NSR 2 (11) , 10(A) Uncomfortable 11:49:51 59 11 95 0 94/53(73) NSR 2 (11) , 10(A) Uncomfortable 11:53:53 59 12 95 0 92/55(74) NSR 2 (11) , 10(A) Uncomfortable 11:58:46 66 12 95 0 91/55(84) NSR 2 (11) , 10(A) Uncomfortable 12:02:45 70 12 93 0 79/55(64) NSR 0 (11) , No 9(A) pain 12:07:32 62 10 94 0 99/53(81) NSR 0 (11) , No 9(A) pain Medications Time Medication Route Dose Verified Delivered Reason Notes Effectiveness by by 11:44:02 0.9% NaCl I.V. 100 Tom Tom Per ml/hr Sp Snowden physician RN RN 11:44:12 Oxygen etCO2 2 l/min Tom Tom for low 02 Nasal Sp Snowden sats cannula RN RN 11:44:23 Heparin Flush added 2 bags Tom Tom used for Bag to Lorigan Lorigan procedure (1000units/500ml field RN RN NS) 11:44:36 Lidocaine 2% added 20ml Tom Tom for local to vial Lorigan Lorigan anesthetic field RN RN 11:44:49 Radial Cocktail added 1 Tom Tom used for (Verapamil to syringe Lorigan Lorigan procedure 2mg/Nitro field RN RN 400mcg/Heparin 1500units) 11:56:27 Versed I.V. 2 mg Tom Tom for sedation Sp Snowden RN RN 11:56:35 Fentanyl I.V. 100 mcg Tom Tom for sedation Sp Snowden RN RN 12:00:05 Radial Cocktail I.A. 1 Tom Babatunde for (Verapamil syringe Lorigan Tauth MD vasodilation 2mg/Nitro RN 400mcg/Heparin 1500units) 12:00:14 Fentanyl I.V. 50 mcg Tom Tom for sedation Sp Snowden RN program writer Log Time Note 11:19:10 Diagnostic Cath Status : Urgent 11:19:17 Indication : Chest pain 11:19:35 Procedure Status Urgent Heart Cath (IP). 11:19:38 Fran Aguila RT(R) sent for patient. Start room use. 11:19:54 Time tracking: Regular hours (M-F 7:00 - 5:00) 11:19:59 Plan of Care:Hemodynamics will remain stable., Cardiac rhythm will remain stable., Comfort level will be maintained., Respiratory function will remain adequate., Patient/ family verbilizes understanding of procedure., Procedure tolerated without complication., Recovers from procedure without complications.. 11:20:06 Patient received from Med II to CCL 3 Alert and oriented. Tansferred to table in Supine position. 11:26:42 Signed procedure consent form obtained from patient. 11:26:44 Warm blankets applied, and ad hugger turned on for patient comfort. 11:26:45 Correct patient and procedure confirmed by team. 11:26:46 ECG and BP/O2 sat monitors applied to patient. 11:26:52 H&P Date Dictated: 02/05/2019 Within 30 days and on chart.. 11:26:55 Pre-procedure instructions explained to patient. 11:27:08 Family in waiting room. 11:27:10 Patient NPO since Midnight. 11:36:41 Vital chart was started 11:36:42 Baseline sample Acquired. 11:36:44 Rhythm: sinus rhythm 11:36:45 Full Disclosure recording started 11:36:54 Patient allergic to No known allergies 11:38:15 Is the patient allergic to Iodine/contrast media? No. 11:38:19 Is patient on blood thinner?Yes 11:38:23 ACC The patient was administered the following blood thiners within the last 24 hours: ACCBrilinta 11:39:25 Patient diabetic? No. 11:39:26 ----Pre-sedation anethsthesia assessment.---- 11:39:31 Previous problem with sedation/anesthesia? No ? 11:40:35 Snore? No 11:40:37 Sleep apnea? No 11:40:39 Deviated septum? No 11:40:41 Opens mouth fully? Yes 11:40:42 Sticks out tongue? Yes 11:40:45 Airway obstruction? No ? 11:40:49 Dentures? Yes out 11:40:56 Pre procedure: right dorsailis pedis pulse 1+ Palpable, but thready & weak; easily obliterated 11:42:06 Modified Daryl's test Ulnar < 7 seconds 11:42:29 Patient pain scale 2/10 ?. 11:42:49 IV patent on arrival in left forearm with 0.9% NaCl at [facility]. 11:42:59 Right Radial & Right Groin area was prepped with chlora-prep and draped in sterile fashion 11:43:01 Alarms reviewed by R. N. 11:43:01 Sharps counted by scrub and verified by R.N. 11:44:02 0.9% NaCl 100 ml/hr I.V. was administered by Tom Snowden RN; Per physician; Verbal order read back and verified. 11:44:12 Oxygen 2 l/min etCO2 Nasal cannula was administered by Tom Snowden RN; for low 02 sats; Verbal order read back and verified. 11:44:23 Heparin Flush Bag (1000units/500ml NS) 2 bags added to field was administered by Tom Snowden RN; used for procedure; Verbal order read back and verified. 11:44:36 Lidocaine 2% 20ml vial added to field was administered by Tom Snowden RN; for local anesthetic; Verbal order read back and verified. 11:44:49 Radial Cocktail (Verapamil 2mg/Nitro 400mcg/Heparin 1500units) 1 syringe added to field was administered by Tom Snowden RN; used for procedure; Verbal order read back and verified. 11:49:34 Physician arrived 11:49:35 --------ALL STOP TIME OUT------ 11:49:36 Final Timeout: patient, procedure, and site verified with staff and physician. All members of the team are in agreement. 11:49:45 Right Radial & Left Groin site verified by team. 11:49:50 Fire Safety Assessment: A--An alcohol-based skin anteseptic being used preoperatively., C--Open oxygen or nitrous oxide is being used., D--An ESU, laser, or fiber-optic light is being used. 11:49:58 Physical assessment completed. ASA score P 2 - A patient with mild systemic disease as per Babatunde Taylor MD. 11:50:04 Sedation plan: IV Moderate Sedation Medication:Versed, Fentanyl 11:50:16 meditech is down 11:51:46 Use device set Radial Dx or PCI 11:51:48 ACIST Syringe (18637) opened to sterile field. 11:51:48 Medline Cath Pack ([id number]) opened to sterile field. 11:51:49 Bag Decanter (2002) opened to sterile field. 11:51:50 ACIST Hand Control (77094) opened to sterile field. 11:51:50 ACIST Manifold (47334) opened to sterile field. 11:51:51 Tegaderm 4 x 4 (1626W) opened to sterile field. 11:51:53 MBrace Wrist Support ([id number]) opened to sterile field. 11:51:55 EMERALD Guide Wire (164-578) opened to sterile field. 11:51:56 SHEATH 6FR RAIN (7076120) opened to sterile field. 11:52:20 [place] Verrata Plus pressure wire (10982O) opened to sterile field. 11:52:26 INFLATOR Merit BasixCompak (FW6093) opened to sterile field. 11:52:31 Zero performed for pressure channel P1 11:54:49 Procedure started. 11:54:56 Local anesthetic to right radial artery with Lidocaine 2% by Babatunde Taylor MD.INITIAL ACCESS ONLY 11:55:11 A 6 Fr Short sheath was inserted into the Right Radial artery 11:56:00 GUIDE 6FR XBLAD 3.5 catheter ([id number]) opened to sterile field. 11:56:27 Versed 2 mg I.V. was administered by Tom Snowden RN; for sedation; Verbal order read back and verified. 11:56:35 Fentanyl 100 mcg I.V. was administered by Tom Snowden RN; for sedation; Verbal order read back and verified. 11:59:24 SHEATH 6FR RAIN (7497367) opened to sterile field. 12:00:05 Radial Cocktail (Verapamil 2mg/Nitro 400mcg/Heparin 1500units) 1 syringe I.A. was administered by Babatunde Taylor MD; for vasodilation; Verbal order read back and verified. 12:00:14 Fentanyl 50 mcg I.V. was administered by Tom Snowden RN; for sedation; Verbal order read back and verified. 12:00:53 5 Fr AR2 guide catheter was inserted over the wire 12:01:02 RCA angiography performed. 12:01:42 Zero performed for pressure channel P1 12:02:51 LV gram done using FERNANDES 12:02:57 EF : 50 % 12:03:06 Catheter exchanged over wire. 12:03:26 6 Fr XBLAD 3.5 guide catheter was inserted over the wire 12:04:38 LCA angiography performed. 12:05:44 FFR/IFR wire advanced. 12:05:53 Wire advanced across lesion. 12:06:02 Baseline FFR 0. 12:06:55 mCirc lesion measured at 0.96 with IFR 12:07:06 Wire advanced across lesion. 12:07:20 OM1 lesion measured at 0.92 with IFR 12:07:37 Wire removed. 12:07:37 Guide catheter removed. 12:07:55 Sheath removed intact; hemostasis achieved with Manual Compression to the Right Radial artery. 12:07:57 Procedure ended.(Physican Out) 12:08:23 Contrast amount:Isovue 370 36ml. 12:08:29 Fluoroscopy time 02.60 minutes. 12:08:41 Fluoroscopy dose: 102.3 mGy 12:08:41 Flurop Dose total: 102.3 12:08:51 Dose Area Product 751 mGy/cm. 12:08:53 Sharps counted by scrub and verified by JoonN. 12:08:58 [place] band inflated with 10cc of air. 12:09:00 Insertion/operative site no bleeding no hematoma. 12:09:06 Post-op/insertion site Right Radial artery dressed using a Bandaid. 12:09:13 Post right radial artery:stable 12:09:14 Post Procedure Pulses reassessed and unchanged 12:09:26 Post procedure: right radial pulse 2+ Normal; easily identifiable; not easily obliterated. 12:09:30 Post procedure rhythm: sinus rhythm 12:09:33 Post procedure instruction explained to patient.Patient verbalizes understanding. 12:09:35 Procedure and supply charges have been captured, reviewed, submitted and are correct. 12:09:55 ZEPHYR REGULAR TR BAND (084554) opened to sterile field. 12:10:20 Procedure Complication : No complications 12:10:22 Vital chart was stopped 12:10:32 [facility] Findings: MVD- manage w/ optimal medication therapy 12:10:36 Operative report dictated upon procedure completion. 12:10:40 See physician's report for complete and final results. 12:10:43 Report given to PCU. 12:10:48 Patient transfered to PCU with Bed. 12:10:54 Procedure ended. 12:10:54 Full Disclosure recording stopped 12:10:57 End room use (Document Last) 12:13:30 End room use (Document Last) 12:14:10 End room use (Document Last) Device Usage Item Name Manufacture Quantity Catalog Hospital Part Current Mini mal Lot# / Number Charge Number Stock Stock Serial# Code ACIST Acist 1 95091 218294 445019 105105 20 Syringe Medical (55437) Systems Inc Medline Medline 1 [id number] 845570 38651 572117 5 Cath Pack ([id number]) Bag Microtek 1 2001S 189966 49122 146274 5 Decanter Medical Inc. () ACIST Hand Acist 1 07152 314673 645452 272734 5 Control Medical (06196) Systems Inc ACIST Acist 1 59472 376707 223752 459676 5 Manifold Medical (80526) Systems Inc Tegaderm 4 3M 1 1626W 691894 872718 598938 5 x 4 (1626W) MBrace Advanced 1 140-0250-00 372233 88912 029215 5 Wrist Vascular Support Dynamics ([id number]) EMERALD Cardinal 1 502-455 754313 627665 868806 5 Guide Wire Health (502-455) SHEATH 6FR Cardinal 2 3591373 676846 8567867 462887 5 RAIN Health (2443863) [place] 1 18934W 164484 [id number] 309453 5 Verrata Plus pressure wire (86803Z) INFLATOR Merit 1 RK8908 827778 166132 547272 15 [facility] Medical BasixCompak (LZ4548) GUIDE 6FR Cardinal 1 [id number] 604791 730104 261147 10 XBLAD 3.5 Health catheter (43226036) ZEPHYR Cardinal 1 800827 383251 3659908 943859 5 REGULAR TR Health BAND (487127) Signature Audit [place] Stage Time Signature Unsigned Intra-Procedure 02/05/2019 Fran Aguila RT(R) 12:13:30 PM Intra-Procedure 02/05/2019 Tom 12:14:10 PM Sp THOMPSON Intra-Procedure 02/05/2019 Babatunde Taylor 12:14:34 PM [facility] [address] [place] [address]
--- NOTE | ~2019-02-04 | HP ---
PATIENT: LEONA ALVAREZ MEDICAL RECORD: [id number] ACCOUNT: [id number] LOCATION:[address] : 69 ADMISSION DATE: 02/04/19 PCP: JAMIE RAPP DO HISTORY AND PHYSICAL EXAMINATION DIAGNOSES: 1. Unstable angina. 2. Coronary artery disease. 3. Status post multivessel percutaneous transluminal coronary angioplasty stent. 4. Hypertension. 5. Hyperlipidemia. 6. Carotid vascular disease. HISTORY OF PRESENT ILLNESS: Mrs. Alvarez was here in specials having a 4-vessel for her carotid vascular disease, began developing severe chest pain, was given morphine and nitro paste and sent to the Emergency Room. She is still having chest pain that is better. Her EKG has nonspecific ST-T abnormalities. Last cardiac intervention was 1 week ago with PTCA stent of an LAD diagonal as well as PTCA of the RCA PLV. With review of the film, she does have concomitant disease of the circumflex. It does not appear critical however. PHYSICAL EXAMINATION: CONSTITUTIONAL/GENERAL APPEARANCE: Well nourished, well developed, appears stated age. EYES: Lids and conjunctivae noninjected. No discharge. No pallor. ENT: Lips within normal limit. No cyanosis. No pallor. NECK: Carotid arteries, bilateral normal upstroke. No bruits. No thrills. No jugular venous pressure or distention. CERVICAL LYMPH NODES: Nontender. Nonenlarged. THYROID: Not enlarged. No nodules. CARDIOVASCULAR: Precordial exam, nondisplaced. No heaves or pericardial thrills. Rate and rhythm, regular. Heart sounds, normal S1, normal S2. No S3, no gallop, no rub. Systolic murmur, not heard. Diastolic murmur, not heard. RESPIRATORY: Respiratory effort, unlabored. Normal curvature. No thoracic deformity. No chest wall tenderness. Percussion, resonant. Auscultation, clear. No wheezes, no rales, no rhonchi. ABDOMEN: Soft, nondistended, nontender. No abdominal pain, no vomiting and normal appetite. MUSCULOSKELETAL: No joint tenderness, normal gait, normal tone. SKIN: Warm and dry. OVERALL IMPRESSION: Chest pain. At this time, most likely this is just an exacerbation of her chronic stable angina. We will admit her for observation. Treat her with narcotics for the chest pain. Continue her current medications. If she continues to have pain, we would consider repeat coronary angiography with IFR of the circumflex. TRANSINT:[id number] Voice Confirmation ID: [id number] DOCUMENT ID: [id number] HISTORY AND PHYSICAL [id number] LEONA ALVAREZ JEFFREY MD CC: [id number] DICTATION DATE: 02/04/19 1051 MUSHROOM GROWING SUPERVISOR: 02/04/19 1147 [facility] [address] [place] [address]
--- NOTE | ~2019-02-04 | DS ---
PATIENT:LEONA ALVAREZ :69 MEDICAL RECORD: [id number] DISCHARGE SUMMARY ADMISSION DATE: 02/04/19 DISCHARGE DATE: 02/05/19 HOSPITAL COURSE: Mrs. Alvarez Presents with anginal symptomatology; however, cardiac catheterization revealed wide patency of all previously placed stent. She was placed on Imdur 30 mg b.i.d. Will follow up with [facility] in 1 month as previously scheduled. TRANSINT:[id number] Voice Confirmation ID: [id number] DOCUMENT ID: [id number] LAURIE ACOSTA MD CC: [id number] DICTATION DATE: 02/05/19 1215 IMMIGRATION OFFICER: 02/06/19 0632 DIS IN 02/05/19 [place] [id number] [place] [id number]
--- NOTE | ~2019-02-04 | OP ---
PATIENT NAME: LEONA SINGER MEDICAL RECORD: [id number] :69 LOCATION:D.M2 D.2124 ADMISSION DATE:02/04/19 SURGEON: LAURIE ACOSTA MD DATE OF OPERATION: 02/05/2019 PROCEDURES: 1. Left heart catheterization. 2. Selective coronary angiography. 3. Left ventriculogram. 4. IFR left circumflex and first obtuse marginal. PROCEDURE IN DETAIL: After informed consent was obtained and after a detailed description of risks, benefits as well as alternative therapies, the patient elected to the angiogram and heart catheterization. The right radial area was prepped and draped in normal sterile fashion. Right radial artery was cannulated via modified Seldinger technique with placement of 6-Kazakh sheath. FINDINGS: The left ventriculogram was performed in standard 30-degree FERNANDES view, reveals good cardiac wall motion, ejection fraction 50%. SELECTIVE CORONARY ANGIOGRAPHY: 1. Left main has no significant angiographic disease. 2. Left anterior descending has previously placed stents, these are widely patent in the LAD and LAD diagonal. 3. Left circumflex has previously placed stents, these are widely patent at circumflex and first obtuse marginal. IFR was normal in both areas of the circumflex and the obtuse marginal. 4. The right coronary has previously placed stents, these are widely patent. OVERALL IMPRESSION: Wide patency of the previously placed stents with normal IFR. Continue medical management of the coronary artery disease and cardiac risk factors. TRANSINT:[id number] Voice Confirmation ID: [id number] DOCUMENT ID: [id number] LAURIE ACOSTA MD CC: [id number] DICTATION DATE: 02/05/19 1213 CHEMICAL STRENGTH TESTER: 02/05/19 1443 DIS IN 02/05/19 [facility] [address] [place] [id number]
--- NOTE | 2019-02-04 10:35 | NUR ---
EKG COMPLETED AT 0949 IN IR DEPT. PRIOR TO ARRIVAL IN ED. EKG GIVEN TO EDP, PER EDP NO ADDITIONAL EKG NEEDED AT THIS TIME.
[2019-02-04 11:00] VITALS: BP 141/74
[2019-02-04 11:08] LABS: BASOPHILS 0.4 % (0-2); EOSINOPHILS 2.9 % (0-7); HEMATOCRIT 37.5 % (36.0-48.0); HEMOGLOBIN 12.4 g/dL (12-16); IMMATURE GRANULOCYTES 0.2 % (0-5); LYMPHOCYTES 34.2 % (15-50); MCH 30.4 pg (26.0-34.0); MCHC 33.1 g/dL (31.0-37.0); MCV 91.9 fL (80.0-100.0); MEAN PLATELET VOLUME 9.4 fL (7.4-10.4); MONOCYTES 8.1 % (2-11); NEUTROPHILS 54.2 % (40-80); PLATELET COUNT 213 10x3/uL (130-400); RBC 4.08 10x6/uL (4.00-5.40); RDW 12.9 % (11.5-14.5); WBC 5.5 10x3/uL (4.8-10.8)
[2019-02-04 11:14] LABS: APTT 30.7 SECONDS (22.8-39.4); PROTIME 12.7 SECONDS (11.6-15.0)
[2019-02-04 11:15] LABS: CALC OSMOLALITY 276 mosm/kg (275-300); CALCIUM 8.3 mg/dL (8.5-10.1); CARBON DIOXIDE 26.7 mmol/L (21.0-32.0); CHLORIDE - SERUM 105 mmol/L (98-107); CREATININE - SERUM 0.8 mg/dL (0.6-1.3); GLUCOSE 88 mg/dL (74-106); POTASSIUM - SERUM 3.9 mmol/L (3.5-5.1); SODIUM 139 mmol/L (136-145); UREA NITROGEN 12 mg/dL (7-18); eGFR NON AFRICAN AMERICAN 80 mL/min (90-120)
[2019-02-04 11:32] LABS: ALKALINE PHOSPHATASE 69 U/L (46-116); ALT (SGPT) 20 U/L (10-68); CKMB 0.6 U/L (0.0-3.6); CREATINE KINASE 59 UL (21-215); MAGNESIUM - SERUM 1.8 mg/dL (1.8-2.4); PROTEIN - SERUM 6.2 g/dL (6.4-8.2); TROPONIN-I < 0.017 ng/mL (0.000-0.060)
[2019-02-04 12:00] VITALS: BP 122/69
--- NOTE | 2019-02-04 12:01 | NUR ---
PT ASSISTED WITH BEDPAN. PT ALERT AND ORIENTED, DROWSY AT TIMES. RESPIRATIONS EVEN AND UNLABORED. SANDBAG IN PLACE TO RT GROIN. PT STATES PAIN HAS SOMEWHAT IMPROVED, CURRENTLY 06/12. SIDE RAILS RAISED X2, CALL LIGHT IN REACH. WILL CONTINUE TO MONITOR.
--- NOTE | 2019-02-04 12:38 | NUR ---
SPOKE WITH JULIO C IN IR DEPT REGARDING PT LIMITATIONS FOLLOWING PROCEDURE. PT TO LIE FLAT FOR FOUR HOURS WITH SAND BAG IN PLACE TO THE RT GROIN FOR MINIMUM OF FOUR HOURS FOLLOWING PROCEDURE THAT ENDED AT 0930. PT INFORMED OF THE ABOVE. PER RELAYED LIMITATIONS, EARLIEST TIME THAT PT MAY SIT UPRIGHT IS 1330. PT AND HER SIGNIFICANT OTHER AT THE BEDSIDE VOICED UNDERSTANDING.
--- NOTE | 2019-02-04 14:12 | NUR ---
ROOM 2124 ASSIGNED AT 1107 AND MARKED DIRTY, REPORT CALLED TO DNONA GIBBONS AT 1320. ROOM CLEAN AND READY FOR PT AT THIS TIME.
--- NOTE | 2019-02-04 14:47 | NUR ---
RECEIVED PT TO ROOM 2123 VIA STRETCHER, X2 ASSIST MOVING PT FROM STRETCHER TO BED. PT A/O X4, RESP EVEN AND NONLABORED ON RA. INCISION TO RT GROIN WITH DRESSING CDI, SAND BAG IN PLACE. WILL ASSESS PT AND START PLAN OF CARE.
[2019-02-04 14:56] VITALS: BP 119/64; BMI 29.3
--- NOTE | 2019-02-04 16:03 | NUR ---
GAVE 4MG OF MORPHINE FOR PAIN LEVEL OF 7/10. RT GROIN DRESSING CDI, PT DENIES ANY OTHER NEEDS AT THIS TIME. CALL LIGHT IN REACH, NAD NOTED,W ILL CONTINUE TO MONITOR.
--- NOTE | 2019-02-04 16:38 | NUR ---
EKG DONE SHOWING SINUS BRADYCARDIA NONSPECIFIC T WAVE ABNORMALITY WIHT RATE OF 53. PT RATES PAIN LEVEL NOW 5/10. HELPED PT TO BATHROOM AND BACK TO BED, DRESSING TO RT GROIN CDI. PT DENIES ANY OTHER NEEDS AT THIS TIME. FAMILY AT BEDSIDE, CALL LIGHT IN REACH, NAD NOTED.
[2019-02-04 18:21] LABS: CKMB 0.9 U/L (0.0-3.6); CREATINE KINASE 67 UL (21-215)
[2019-02-04 18:24] LABS: TROPONIN-I < 0.017 ng/mL (0.000-0.060)
--- NOTE | 2019-02-04 19:20 | NUR ---
EVENING ROUNDS COMPLETED. PT AAOX3, VSS, BUT PT'S SINUS BIJU ON THE MONITOR. PT APPEARS WEAK AND LETHARGIC. ON ASSESSMENT APPEARS WOBBLY WHEN STANDING. PT STATES SHE THINKS IT IS THE MORPHINE. ALTHOUGH PT STATES HER PAIN IS A 2/10 AT THIS TIME. WILL CTM. SIGNIFICANT OTHER AT BEDSIDE. PT DENIES ANY FURTHER NEEDS AT THIS TIME. WILL CTM.
[2019-02-04 20:33] VITALS: BP 124/59
[2019-02-05] LABS: CKMB 0.3 U/L (0.0-3.6); CREATINE KINASE 55 UL (21-215); TROPONIN-I < 0.017 ng/mL (0.000-0.060)
[2019-02-05 00:57] VITALS: BP 110/56
--- NOTE | 2019-02-05 01:12 | NUR ---
PT RESTING INN BED EKG PERFOMED. SIGNIFICANT OTHER AT BEDSIDE.
--- NOTE | 2019-02-05 03:00 | NUR ---
PT FOUND VOMITING. ON ASSESSMENT. PT SPEECH APPEARS SLURRED. ASKED PT WAS OK, SHE STATES "I FEEL NUMB ON LEFT SIDE OF MY FACE AND THE RIGHTSIDE FACE FEELS PUFFY. BP 114/47, HR 54, SPO2 99 ON R.A. SIGNIFICANT OTHER STATED THAT HE TOO HAD NOTICED QUITE A FEW CHANGES IN HER GAIT AND FACIAL EXPRESSION. NOTIFIED MATTHEW, CHARGE NURSE. MATTHEW DID A THROROUGH NEUROLOGICAL ASSESSMENT. PT'S RIGHT PUPIL APPEARS PINPOINT. PT REMAINS STABLE AND DENIES ANY PAIN AT THIS TIME. CHRISTINE, ICU CHARGE NURSE ALSO PERFORMED A THOROUGH ASSESSMENT. SHE ALSO NOTICED PT'S NEUROLOGICAL CHANGES. DR. RENDON WAS PAGED.
--- NOTE | 2019-02-05 03:30 | NUR ---
CHRISTINE ICU CHARGE NURSE CONSULT DR. CAMEJO. DR. RENDON ORDERED STAT HEAT CT.CONSULT DR. VARGAS, AM LABS AND [facility].
--- NOTE | 2019-02-05 03:35 | NUR ---
PT OUT FOR CT.
--- NOTE | 2019-02-05 04:09 | NUR ---
ICU NURSE CHRISTINE CALLED DR. CAMEJO. DR ARIAS ORDERED A STAT HEAD CT. CONSULT DR. VARGAS, AM LABS AND 2L O2.
--- NOTE | 2019-02-05 04:17 | NUR ---
PT BACK FROM CT. PLACED PT ON 2L NC. RECIEVED REPORT FROM RADIOLOGY. HE STATED NO HEMORRHAGE OR EVIDENCE OF STROKE. CALLED AND NOTIFIED LUCRECIA MUÑIZ ABOUT THE RESULT. HE STATED AN INTERVENTION WILL BE CARRIED OUT BY PT'S PROVIDER IN THE AM.
[2019-02-05 04:28] VITALS: BP 105/59
[2019-02-05 06:35] LABS: INR 1.02 (0.85-1.17); PROTIME 12.9 SECONDS (11.6-15.0)
[2019-02-05 06:36] LABS: APTT 31.9 SECONDS (22.8-39.4)
[2019-02-05 06:52] LABS: ALBUMIN 3.1 g/dL (3.4-5.0); ALKALINE PHOSPHATASE 71 U/L (46-116); ALT (SGPT) 21 U/L (10-68); BILIRUBIN - TOTAL 0.32 mg/dL (0.2-1.3); CALC OSMOLALITY 277 mosm/kg (275-300); CALCIUM 8.8 mg/dL (8.5-10.1); CARBON DIOXIDE 26.6 mmol/L (21.0-32.0); CHLORIDE - SERUM 105 mmol/L (98-107); CREATININE - SERUM 0.8 mg/dL (0.6-1.3); GLUCOSE 94 mg/dL (74-106); MAGNESIUM - SERUM 1.8 mg/dL (1.8-2.4); PHOSPHOROUS 3.7 mg/dL (2.5-4.9); PROTEIN - SERUM 6.5 g/dL (6.4-8.2); SODIUM 140 mmol/L (136-145); UREA NITROGEN 9 mg/dL (7-18); eGFR NON AFRICAN AMERICAN 80 mL/min (90-120)
--- NOTE | 2019-02-05 07:10 | NUR ---
REPORT RECEVIED FROM GROUP WORK PROGRAM DIRECTOR AND PATIENT CARE ASSUMED. PATIENT LAYING IN BED ON BACK AWAKE, LETHARGIC AND ORIENTED X 4. PATIENT DENIES ANY NEEDS OR PAIN. WILL CONTINUE WITH PLAN OF CARE. AT BS. SR UPX 2 BED IN LOW POSITION AND CALL LIGHT IN REACH.
[2019-02-05 07:44] LABS: BASOPHILS 0.1 % (0-2); EOSINOPHILS 1.5 % (0-7); HEMATOCRIT 37.9 % (36.0-48.0); HEMOGLOBIN 12.5 g/dL (12-16); IMMATURE GRANULOCYTES 0.2 % (0-5); LYMPHOCYTES 18.9 % (15-50); MCH 30.6 pg (26.0-34.0); MCV 92.7 fL (80.0-100.0); MEAN PLATELET VOLUME 9.9 fL (7.4-10.4); MONOCYTES 6.4 % (2-11); NEUTROPHILS 72.9 % (40-80); PLATELET COUNT 237 10x3/uL (130-400); RBC 4.09 10x6/uL (4.00-5.40); RDW 13.1 % (11.5-14.5)
[2019-02-05 07:45] LABS: WBC 8.7 10x3/uL (4.8-10.8)
[2019-02-05 08:00] VITALS: BP 116/74
[2019-02-05 09:34] VITALS: Ht 149.9 cm; Wt 65.9 kg
--- NOTE | 2019-02-05 10:54 | NUR ---
PATIENT IS STABLE AND VSS. PHONE CALL RECEIVED FROM DOG BREEDER TEAM TO PREOP PATIENT. PATIENT PREOP PER MAR. WILL CONTINUE TO MONITOR. SR UP X 2 BED IN LOW POSITION AND CALL LIGHT IN REACH.
--- NOTE | 2019-02-05 11:30 | NUR ---
PATIENT IS STABLE AND VSS. PATIENT DENIES ANY NEEDS OR PAIN. AT BS. PATIENT TO SENIOR SUSTAINABILITY CONSULTANT VIA HOSPITAL BED AND SENIOR SUSTAINABILITY CONSULTANT TEAM.
[2019-02-05 13:02] LABS: APPEARANCE CLOUDY (CLEAR); BACTERIA FEW /hpf (NEGATIVE); BILIRUBIN NEGATIVE (NEGATIVE); COLOR YELLOW (YELLOW); EPITHELIAL CELLS OCC /hpf (0-5); GLUCOSE NEGATIVE (NEGATIVE); GRANULAR CAST RARE /lpf (NONE SEEN); KETONE NEGATIVE (NEGATIVE); MUCUS <1+ /lpf (NONE SEEN); NITRITE NEGATIVE (NEGATIVE); PROTEIN TRACE mg/dL (NEGATIVE); RED CELLS - URINE OCC /hpf (0-5); UROBILINOGEN NORMAL (NORMAL); WHITE CELLS - URINE NSEEN /hpf (NEGATIVE)
[2019-02-05 13:03] LABS: AMORPHOUS SEDIMENT >1+ /lpf (NONE SEEN); CALCIUM OXALATE CRYSTALS RARE /hpf (NONE SEEN)
[2019-02-05] MEDS ORDERED: ISOSORBIDE MONO30 M1 PO (13:26)
[2019-02-05 13:29] LABS: UDS - AMPHET NEGATIVE QUAL (NEGATIVE); UDS - BARB NEGATIVE QUAL (NEGATIVE); UDS - BENZO POSITIVE QUAL (NEGATIVE); UDS - COCAINE NEGATIVE QUAL (NEGATIVE); UDS - OPIATE POSITIVE QUAL (NEGATIVE); UDS - PCP NEGATIVE QUAL (NEGATIVE); UDS - THC NEGATIVE QUAL (NEGATIVE)
--- NOTE | 2019-02-05 13:40 | NUR ---
PATIENT LAYING ON BACK WITH EYES CLOSED AND BREATHING EVENLY. RT RADIAL DRSG C/D/I. PATIENT AROUSES TO VOICE EASILY. WILL CONTINUE TO MONTITOR. SR UP X 2 BED IN LOW POSITION AND CALL LIGHT IN REACH.
--- NOTE | 2019-02-05 13:46 | NUR ---
SPENT [address] [facility] TO CALL MEDICATION IN OF IMDUR 30 MG BID # 60 WITH 6 REFILLS. TALKED TO MATTI - PHARMACIST.
--- NOTE | 2019-02-05 14:19 | NUR ---
PATIENT IS STABLE AND VSS. PATIENT DENIES ANY NEEDS OR PAIN. ORDERS RECEVED FOR DC. WRITTEN AND VERBAL INSTRUCTIONS DISCUSSED WITH CARL . PATIENT VERBALIZED UNDERSTANDING AND SIGNED PAPERWORK. IV DCD WITHOUT DIFFICULTY WITH ENITRE CATHETER INTACT. PRESSURE DRSG APPLIED. PATIENT AWAINTING TO COME BACK TO HOSPITAL FOR RIDE HOME. SR UP X 2 BED IN LOW POSITION AND CALL LIGHT IN REACH.
--- NOTE | 2019-02-05 15:44 | NUR ---
PATIENT IS STABLE AND VSS. PATIENT DENIES ANY NEEDS OR PAIN. IN ROOM PATIENT TO FRONT DOOR VIA WC AND HOSPITAL STAFF. PATIENT TO PRIVATE VEHICLE DRIVEN BY . PATIENT IS DCD HOME FOR SELF CARE.
--- NOTE | 2019-02-06 08:34 | MORECARE ---
CASE MANAGEMENT DISCHARGE SUMMARY PATIENT: LEONA SINGER UNIT: [id number] ADM DATE: 02/04/19 AGE: 53 : 69 SEX: F ROOM/BED: D.9664 AUTHOR: NANCY ARGUETA PHYSICIAN: REFERRING PHYSICIAN: LAURIE ACOSTA MD DATE OF SERVICE: 02/06/19 Discharge Plan Patient Name: LEONA SINGER [facility] [facility] 1965 Planned Disposition: Home Anticipated Discharge Date: 02/05/19 Discharge Date: 02/05/2019 Expected LOS: 1 Initial Reviewer: [email or web address] Initial Review Date: 02/06/2019 Generated: 02/06/19 9:34 am Patient Name: LEONA SINGER Page 40278 at 0834 All edits/amendments must be made on the electronic document DICTATION DATE: 02/06/1932 SUPERINTENDENT FISH HATCHERY: FREDERICK 02/06/1932 RPT#: [id number] DC DATE:02/05/19 [facility] [address] [facility] [place] [address] END OF REPORT
== END 2019-02-05 15:46 | disposition home or self-care (01) ==
LOC: D.OPS 10:14 → D.M2 10:14 → D.ER 10:14 → D.M2 10:38 → OBSVTIME 10:38 → EDSTATUS 10:51 → D.OPS 11:29 → D.M2 11:29 → D.SDCHOLD 02-05 13:33 → D.M2 02-05 13:33
PROVIDERS: Family Medicine; Internal Medicine Nephrology; ADMIT Internal Medicine Interventional Cardiology; ATTEND Internal Medicine Interventional Cardiology
DX: I25.110 Atherosclerotic heart disease of native coronary artery with unstable angina pectoris (principal); I10 Essential (primary) hypertension; R78.5 Finding of other psychotropic drug in blood; I99.8 Other disorder of circulatory system

== ENCOUNTER → 2019-12-23 09:05 | Outpatient (CLI) | payer MEDICAID ==
[2019-02-05 09:34] VITALS: BMI 29.3
== END | disposition home or self-care (01) ==
LOC: D.CT 09:05
PROVIDERS: ATTEND Family Medicine
DX: I65.29 Occlusion and stenosis of unspecified carotid artery (principal)

== ENCOUNTER 2020-05-31 15:45 | Outpatient (CLI) | payer MEDICAID ==
[2020-04-02 07:32] VITALS: BMI 28.3
[~2020-05-31 15:45] MED LIST changes: +GABAPENTIN300 MG PO; +ISOSORBIDE DINI30 MG PO; +LIPITOR10 MG PO; +PAMELOR 25 MG C25 MG PO
== END 2020-05-31 23:59 | disposition home or self-care (01) ==
LOC: D.MAMMO 15:45
PROVIDERS: ATTEND Family Medicine
DX: Z12.31 Encounter for screening mammogram for malignant neoplasm of breast (principal)

== ENCOUNTER → 2020-06-25 23:52 | Outpatient (CLI) | payer MEDICAID ==
[2020-04-02 07:32] VITALS: BMI 28.3
== END | disposition home or self-care (01) ==
LOC: D.MAMMO 11:00
PROVIDERS: ATTEND Family Medicine
DX: R92.8 Other abnormal and inconclusive findings on diagnostic imaging of breast (principal)

== ENCOUNTER → 2020-08-25 09:16 | Outpatient (CLI) | payer MEDICAID ==
[2020-04-02 07:32] VITALS: BMI 28.3
== END | disposition home or self-care (01) ==
LOC: D.ECHO 09:16
PROVIDERS: ATTEND Family Medicine
DX: R60.9 Edema, unspecified (principal)